=== PATIENT | female | born 1965 | race Caucasian/White ===

== ENCOUNTER 2016-08-21 09:29 | Emergency (ER) | payer OTHER ==
[~2016-08-21] VITALS: Ht 177.8 cm; Wt 99.4 kg
[~2016-08-21 09:29] MED LIST: BUPR-79 PO; CALC-20 PO; CHOL100010 PO; CLON0.5T3 PO; FERR325T51 PO; LEVO300T5 PO; LSX40 PO; MULT-589 PO; POTA-327 PO; SERT1TAB68 PO; ZINC50TA3 PO
[2016-08-21 09:34] VITALS: TEMP 37; Ht 177.8 cm; Wt 99.4 kg
[2016-08-21] MEDS ORDERED: OXYCODONE HCL IR 5 MG TAB (IMMEDIATE RELEASE) PO STA (09:56)
--- NOTE | 2016-08-21 10:29 | DIAGNOSTIC IMAGING REPORT ---
RIGHT SHOULDER 3 VIEWS HISTORY: R shoulder pain s/p fall Right COMPARISON: None. FINDINGS: Focal lucency at the superolateral humeral head consistent with a small nondisplaced avulsion fracture. Focal calcification the distal supraspinatus tendon. There is mild degenerative changes at the acromioclavicular and glenohumeral joint. The right clavicle appears intact. Dorsal spurring at the lateral acromion. No radiopaque foreign bodies. IMPRESSION: 1. Small nondisplaced avulsion fracture at the superolateral aspect of the humeral head. This likely represents an avulsion fracture of the supraspinatus tendon. 2. No dislocation within the right shoulder. 3. Calcific tendinitis of the supraspinatus. Electronically signed by: Quincy Perez M.D. 08/21/2016 10:27 AM Dictated Date/Time: 08/21/2016 10:24 AM
[2016-08-21] MEDS ORDERED: OXYC1TAB3 PO (10:48)
[2016-08-21 10:51] VITALS: BP 119/63; PULSE 62; O2SAT 95
[2016-08-21] MEDS ORDERED: LEVO75TA PO (10:54)
[2016-08-21] MEDS ORDERED: POTA10TA30 PO (10:54)
[2016-08-21] MEDS ORDERED: CHOL100041 PEG (10:54)
[2016-08-21] MEDS ORDERED: FERR325T5 PO (10:54)
--- NOTE | 2016-08-21 11:00 | EMERGENCY ROOM VISIT NOTE ---
History First contact with patient: 09:43 Chief Complaint: SHOULDER PAIN Stated Complaint: FELL-RIGHT SHOULDER PAIN History of Present Illness The patient is a 51 year old female who presents to the Emergency Room with complaints of right shoulder pain after slipping and falling this morning on snow, landing on her right side. Since happened around 5 AM this morning. She reports worsening pain with range of motion of the shoulder. The patient reports that she has a history of chronic right shoulder and neck pain. She is currently under the management of [facility] to determine whether her chronic right upper extremity pain is from her neck or shoulder. She has had MRIs of both. She has an appointment tomorrow to see both Dr. Yeboah, spine surgery, and Dr. Carter, general orthopedic surgeon, for her shoulder. The patient denies any head injury or significant neck pain from her fall. The patient is [id number], and rates her discomfort a 10 out of 10. Patient has been taking Ultram 100 mg without any relief of her pain. Review of Systems 10 system review was performed and was negative except for pertinent positives and negatives as indicated in history of present illness Past Medical/Surgical History Medical Problems: (1) Bariatric Surgery Status (2) Obstructive Sleep Apnea (Adult) (Pediatric) (3) Postoperative wound infection (4) RECURRENT SEROMA LEFT LOWER EXTREMITY Family History Unremarkable Social History Smoking Status: Never Smoker Alcohol Use: none Drug Use: none Marital Status: Housing Status: lives with family Occupation Status: employed Current/Historical Medications Scheduled Bupropion (Wellbutrin Sr), 150 MG PO BID Calcium Carbonate-Vitamin D (Calcium 600 + D), 1 TAB PO BID Cholecalciferol (Vitamin D), 1,000 INTER.UNIT PO WK Ferrous Sulfate (Iron Supplement), 325 MG PO QAM Levothyroxine Sodium (Levothyroxine Sodium), 300 MCG PO QAM Multivitamins (Daily Flaca), 1 TAB PO QAM Sertraline Hcl (Zoloft), 200 MG PO QPM Zinc (Zinc), 50 MG PO QAM Scheduled PRN Clonazepam (Klonopin), 0.5 MG PO BID PRN for Anxiety Furosemide (Furosemide), 40 MG PO DAILY PRN for LEG SWELLING Oxycodone Ir (Roxicodone Ir), 1-2 TAB PO Q4H PRN for Pain Potassium Ext Rel (Klor-Con), 10 MEQ PO DAILY PRN for WHEN TAKING LASIX Allergies Coded Allergies: Chlorhexidine (Unverified Allergy, Unknown, rash, 08/21/16) Penicillins (Verified Allergy, Unknown, RASH, 08/21/16) Povidone Iodine (Unverified Allergy, Unknown, hives, 08/21/16) Physical Exam Vital Signs Date Time Temp Pulse Resp B/P Pulse Ox O2 Delivery O2 Flow Rate FiO2 08/21/16 10:51 62 17 119/63 95 Room Air 08/21/16 09:34 37.0 77 20 110/55 97 Room Air Pain Rating (0-10): 10.0 Physical Exam CONSTITUTIONAL: Healthy and well nourished. Alert and oriented X 3 with positive affect. Patient appears in mild discomfort from pain. HEENT: Normocephalic, atraumatic. Pupils equal, round and reactive. NECK: Full active range of motion without discomfort. No focal tenderness to the central cervical spine. RESPIRATORY: Clear to auscultation bilaterally with no wheezing, crackles, rhonchi or stridor. CARDIOVASCULAR: Regular rate and rhythm with no murmurs, rubs or gallops. GASTROINTESTINAL: Bowel sounds present in all quadrants. Soft and nontender to palpation. MUSCULOSKELETAL: Examination shows generalized tenderness to the patient of the entire shoulder. She has no focal tenderness to the distal humerus, elbow or forearm. Distal pulses are intact. No tenderness to palpation through the central thoracolumbar spine. INTEGUMENTARY: No rash or other significant dermatologic conditions noted. NEUROLOGIC: Right hand median, radial and ulnar motor and sensory are intact. Medical Decision & Procedures ER Provider Diagnostic Interpretation: Interpretation of right shoulder x-ray shows degenerative changes of the acromioclavicular joint and humeral head. Radiologist questions the possibility of an avulsion fracture at the insertion of the supraspinatus tendon. Radiologist report is as follows: RIGHT SHOULDER 3 VIEWS HISTORY: R shoulder pain s/p fall Right COMPARISON: None. FINDINGS: Focal lucency at the superolateral humeral head consistent with a small nondisplaced avulsion fracture. Focal calcification the distal supraspinatus tendon. There is mild degenerative changes at the acromioclavicular and glenohumeral joint. The right clavicle appears intact. Dorsal spurring at the lateral acromion. No radiopaque foreign bodies. IMPRESSION: 1. Small nondisplaced avulsion fracture at the superolateral aspect of the humeral head. This likely represents an avulsion fracture of the supraspinatus tendon. 2. No dislocation within the right shoulder. 3. Calcific tendinitis of the supraspinatus. Medications Administered Medications (Trade) Dose Ordered Sig/Amalia Route Start Time Stop Time Status Last Admin Dose Admin Oxycodone HCl (Roxicodone Immediate Rel Tab) 5 mg NOW STAT PO 08/21/16 09:56 08/21/16 09:57 DC 08/21/16 10:01 5 MG ED Course Patient history and physical exam were performed. Nurse's notes were reviewed. The patient was administered OxyIR 5 mg for pain. X-rays of the right shoulder is questioning a possible avulsion fracture of the greater tuberosity. X-ray findings were discussed with the patient. The patient was provided a sling for short-term pain relief. She was urged to perform gentle range of motion exercises to prevent stiffness. Ice for swelling. Tylenol for baseline pain relief. The patient was provided a prescription for OxyIR as needed for breakthrough pain. No drinking or driving while taking OxyIR. The patient will follow-up tomorrow with Drs. Yeboah and Emma for further reevaluation and management. The patient was happy with plan of care, voiced understanding of all discharge instructions, and rated her pain a 5 out of 10 at the time of discharge. Medical Decision Impression Primary Impression: Right humeral fracture Additional Impression: Fall due to slipping on ice or snow Departure Information Prescriptions Oxycodone Ir (Roxicodone Ir) 5 Mg Tab 1-2 TAB PO Q4H Y for Pain, #36 TAB For Initial Treatment Prov: Gideon Haas PA 08/21/16 Referrals Genet Liu M.D. (PCP) Patient Instructions [facility] Problem Qualifiers Primary Impression: Right humeral fracture Encounter type: initial encounter Humerus Location: greater tuberosity Fracture type: closed Fracture alignment: nondisplaced Qualified Codes: S42.254A - Nondisplaced fracture of greater tuberosity of right humerus, initial encounter for closed fracture Additional Impression: Fall due to slipping on ice or snow Encounter type: initial encounter Qualified Codes: W00.9XXA - Unspecified fall due to ice and snow, initial encounter
== END 2016-08-21 11:05 | disposition home or self-care (01) ==
LOC: C.EDB 09:32
DX: S42.254A Nondisplaced fracture of greater tuberosity of right humerus, initial encounter for closed fracture (principal); W00.9XXA Unspecified fall due to ice and snow, initial encounter; G89.29 Other chronic pain; Z98.84 Bariatric surgery status; G47.33 Obstructive sleep apnea (adult) (pediatric); Z79.899 Other long term (current) drug therapy

== ENCOUNTER 2017-05-29 10:37 | Day surgery (SDC) | payer OTHER ==
[2017-05-21 10:52] VITALS: BMI 35.0
--- NOTE | 2017-05-21 11:24 | PAT Medication Instructions ---
Service Date May 21, 2017. Current Home Medication List Bupropion (Wellbutrin Sr), 150 MG PO BID Calcium Carbonate-Vitamin D (Calcium 600 + D), 1 TAB PO BID Cholecalciferol (D 1000), 1,000 INTER.UNIT PO QAM Clonazepam (Klonopin), 0.5 MG PO BID Cyanocobalamin (Vitamin B12), 1,000 MCG PO QAM Ergocalciferol (Vitamin D 99477 Unit), 50,000 UNIT PO WK Ferrous Sulfate (Ferrous Sulfate), 325 MG PO QAM Fish Oil ([place]-3), 1 CAP PO QAM Levothyroxine Sodium (Levothyroxine Sodium), 1 TAB PO QAM Multivitamins (Daily Flaca), 1 TAB PO QAM Sertraline Hcl (Zoloft), 200 MG PO QPM Zinc (Zinc), 50 MG PO QAM Medication Instructions For Your Scheduled Surgery - Hold the following medications as of 05/22/17: Fish Oil ([place]-3), 1 CAP PO QAM - Continue as directed: Ergocalciferol (Vitamin D 15553 Unit), 50,000 UNIT PO WK - Hold the following medications the morning of surgery: Calcium Carbonate-Vitamin D (Calcium 600 + D), 1 TAB PO BID Zinc (Zinc), 50 MG PO QAM Cyanocobalamin (Vitamin B12), 1,000 MCG PO QAM Ferrous Sulfate (Ferrous Sulfate), 325 MG PO QAM Cholecalciferol (D 1000), 1,000 INTER.UNIT PO QAM Multivitamins (Daily Flaca), 1 TAB PO QAM - Take the following medications the morning of surgery with a sip of water OTHERWISE NOTHING TO EAT OR DRINK AFTER MIDNIGHT: Levothyroxine Sodium (Levothyroxine Sodium), 1 TAB PO QAM Bupropion (Wellbutrin Sr), 150 MG PO BID Clonazepam (Klonopin), 0.5 MG PO BID - Take the following medications as scheduled the night before surgery: Bupropion (Wellbutrin Sr), 150 MG PO BID Calcium Carbonate-Vitamin D (Calcium 600 + D), 1 TAB PO BID Clonazepam (Klonopin), 0.5 MG PO BID Sertraline Hcl (Zoloft), 200 MG PO QPM If you have any questions please call us at [phone] or [phone] or [phone]
[2017-05-21 12:05] LABS: BASO % 0.9 %; BASO ABS # 0.05 K/uL (0-0.2); COMPLETE YES; EOS % 2.1 %; HEMATOCRIT 37.8 % (37-47); LYMPH % 43.9 %; MEAN CELL VOLUME 90.2 fL (80-100); MEAN CORPUSCULAR HGB CONC 34.4 g/dl (32-36); MEAN PLATELET VOLUME 9.6 fL (7.4-10.4); MONO % 8.4 %; NEUT % 44.7 %; PLATELET COUNT 198 K/uL (130-400); RED BLOOD COUNT 4.19 M/uL (4.2-5.4)
[2017-05-21 12:07] LABS: URINE APPEARANCE CLEAR (CLEAR); URINE BILIRUBIN NEG (NEG); URINE COLOR YELLOW; URINE NITRITE NEG (NEG); URINE SPECIFIC GRAVITY 1.023 (1.000-1.030); UROBILINOGEN NEG (NEG); ZZUR CULT IF INDIC CLEAN CATCH NO
[2017-05-21 12:12] LABS: MANUAL MICROSCOPIC REQUIRED? NO; REVIEW REQ? NO
--- NOTE | 2017-05-21 12:25 | DIAGNOSTIC IMAGING REPORT ---
CHEST 2 VIEWS ROUTINE HISTORY: 52 years-old Female PAT preoperative exam. No acute chest complaints. COMPARISON: Chest radiograph 09/24/2014 TECHNIQUE: PA and lateral views of the chest FINDINGS: Cardiomediastinal and hilar silhouettes are within normal limits. No pneumothorax, pleural effusion, focal airspace consolidation or overt pulmonary edema. Degenerative changes are seen within the shoulders and spine. IMPRESSION: No acute cardiopulmonary process. The above report was generated using voice recognition software. It may contain grammatical, syntax or spelling errors. Electronically signed by: Zeke Enriquez M.D. 05/21/2017 12:24 PM Dictated Date/Time: 05/21/2017 12:22 PM
[2017-05-21 14:04] LABS: BUN/CREATININE RATIO 20.4 (10-20); CALCIUM 8.4 mg/dl (8.5-10.1); CREATININE 0.57 mg/dl (0.60-1.20); POTASSIUM 4.3 mmol/L (3.5-5.1)
--- NOTE | 2017-05-28 17:07 | HISTORY & PHYSICAL EXAMINATION ---
DATE OF ADMISSION: 05/29/2017 ADMISSION HISTORY AND PHYSICAL CHIEF COMPLAINT: Chronic right shoulder pain. HISTORY OF PRESENT ILLNESS: This is a 52-year-old female patient of Dr. Roth'monty complaining of chronic right shoulder pain, longstanding, now progressively getting worse. The patient has had right shoulder pain for approximately 2 years now. She has failed conservative treatment including injections and then she also had a fall in July of 2011, at work. MRI has confirmed impingement, AC arthritis and calcium deposit. The patient wishes to proceed with a right shoulder arthroscopic subacromial decompression, distal clavicle excision and needle barbotage with a possible excision of calcium deposit. PAST MEDICAL HISTORY: Anxiety, carpal tunnel syndrome, hypothyroidism, and neck problems. SOCIAL HISTORY: Nonsmoker, nondrinker. PAST SURGICAL HISTORY: Gastric bypass, stomach surgery, and surgery on her left thigh status post an injury. REVIEW OF SYSTEMS: The patient complains of chronic right shoulder pain, failure of conservative treatment. Otherwise, denies any shortness of breath, chest pain, nausea, vomiting or other joint complaints. FAMILY HISTORY: Noncontributory. MEDICATIONS: Include: 1. Ibuprofen as needed. 3. Clonazepam 0.5 mg p.r.n. x2. 4. Synthroid 125 mcg daily. 5. Zoloft 100 mg 2 tablets daily. 6. Vitamin B12 daily. 7. Vitamin D daily. 8. Zinc 50 mg daily. 9. Calcium plus D3 200 daily. 10. A multivitamin daily. 11. Fish oil 1200 mg daily. 12. Iron 325 mg daily. ALLERGIES: PENICILLIN, BETADINE SCRUB. PHYSICAL EXAMINATION: GENERAL: Well-developed, well-nourished 52-year-old female, in no acute distress. She is alert and oriented x3 and pleasant. HEENT: Normocephalic, atraumatic. Extraocular motions are intact. Pupils are equal and reactive to light. HEART: Regular rate and rhythm, no murmurs appreciated. LUNGS: Clear. ABDOMEN: Soft, nontender, bowel sounds present. EXTREMITIES: Right shoulder reveals AC joint tenderness. She has positive impingement maneuvering. She has 4+/5 strength globally although with pain. NEUROLOGIC: Neurovascularly, she is intact in her right upper extremity. DIAGNOSES: Right shoulder impingement, acromioclavicular arthritis, calcium deposit. She also has a history of anxiety, carpal tunnel syndrome, hypothyroidism, and neck problems. PLAN: The patient was advised of her diagnosis. Indications, risks, benefits, and postop course have all been reviewed. The patient wishes to proceed with a right shoulder arthroscopic subacromial decompression, distal clavicle excision, needle barbotage, possible excision of calcium deposit. Necessary consent forms, preoperative testing and clearances will be obtained. ROMAN
[~2017-05-29] VITALS: Ht 175.3 cm; Wt 108.9 kg
[~2017-05-29 10:37] MED LIST changes: +BUPIVACAINE 0.5 % 5 MG/1 ML PF 10ML VIAL ONE; -CHOL100010 PO; +CHOL100041 PO; +CLONIDINE HCL 100 MCG/ML SYRINGE ONE; +CYAN100020 PO; +ERGO500037 PO; +FERR325T5 PO; -FERR325T51 PO; +LACTATED RINGER'S 1000ML 1,000 ML IV SCH; +LEVO125T5 PO; -LEVO300T5 PO; -LSX40 PO; +MEPIVACAINE HCL 1.5% 30 ML VIAL ONE; +OMEG10007 PO; -POTA-327 PO
[2017-05-29] MEDS ORDERED: ONDANSETRON INJ 2 MG/ML 2 ML VIAL ONE (10:51)
[2017-05-29] MEDS ORDERED: DEXAMETHASONE SOD INJ 4 MG/ML VIAL ONE (10:51)
[2017-05-29] MEDS ORDERED: FENTANYL CITRATE INJ 50 MCG/1 ML 2 ML VIAL ONE (10:51)
[2017-05-29] MEDS ORDERED: NEOSTIGMINE METHYLSULFATE 5 MG/5 ML SYR ONE (10:51)
[2017-05-29] MEDS ORDERED: LIDOCAINE HCL 2% 2 ML VIAL (20MG/ML) ONE (10:51)
[2017-05-29] MEDS ORDERED: GLYCOPYRROLATE INJ 0.2 MG/ML VIAL ONE ×2 (10:51→13:50)
[2017-05-29] MEDS ORDERED: ROCURONIUM BROMIDE 10 MG/ML 5 ML VIAL IV ONE (10:51)
[2017-05-29] MEDS ORDERED: PROPOFOL IV EMULSION 10 MG/ML 20 ML VIAL IV ONE (10:51)
[2017-05-29] MEDS ORDERED: MIDAZOLAM HCL 1 MG/ML 2ML VIAL ONE (10:51)
[2017-05-29 11:04] VITALS: BP 122/68; PULSE 59; TEMP 36.7; O2SAT 99; Ht 175.3 cm; Wt 108.9 kg
[2017-05-29] MEDS ORDERED: CLINDAMYCIN 600 MG/54 ML D5W 54 ML IV SCH (12:00)
--- NOTE | 2017-05-29 12:55 | History & Physical Bridge Note ---
H&P Re-Evaluation Bridge Note: I have examined the patient, reviewed the History & Physical and in the interval since the performance of the History & Physical I have noted the following changes of clinical significance: had diarrhea last evening none since this am 5:00 no nausea or vomiting or fever or feeling ill no abdominal pain of significance and active bowel sounds
[2017-05-29] MEDS ORDERED: EpINEphrine HCL INJ 1 MG/ML 5ML SYRINGE ONE (13:12)
[2017-05-29] MEDS ORDERED: PHENYLEPHRINE 100MCG/ML 5ML SYR ONE (13:45)
[2017-05-29] MEDS ORDERED: SUCCINYLCHOLINE 100MG/5ML SYR IV ONE (13:45)
[2017-05-29] MEDS ORDERED: SODIUM CHLORIDE 0.9% 1000ML 1,000 ML IV SCH (14:58)
[2017-05-29] MEDS ORDERED: OXYCODONE/ACETAMINOPHEN 5-325 TAB PO PRN ×2 (15:00)
[2017-05-29] MEDS ORDERED: OXYC-57 PO (15:00)
--- NOTE | 2017-05-29 15:03 | Discharge Instructions ---
Discharge Instructions Date of Service May 29, 2017. Admission Reason for Admission: Right Shoulder Impingement Syndrome, Osteoarthriti Discharge Discharge Diagnosis / Problem: Right shoulder scope. Discharge Goals Goal(s): Improve function Activity Recommendations Activity Limitations: as noted below . Instructions / Follow-Up Instructions / Follow-Up Please see home instruction sheet. Arrange physical therapy 2-3 days post op if already not done. Pain meds as prescribed Follow up with Dr. Roth's office 10-12 days post op as scheduled, call [phone] if you need to confirm your appt. Current Hospital Diet Patient's current hospital diet: Discharge Diet Recommended Diet: Regular Diet Procedures Procedures Performed: Right Shoulder Arthroscopic Subacromial Decompression, Partial Rotator Cuff Debridement, Distal Clavicle Excision, Needle Barbatage, Excision Calcium Deposit, Tenotomy Biceps Pending Studies Studies pending at discharge: no Medical Emergencies . Who to Call and When: Medical Emergencies: If at any time you feel your situation is an emergency, please call 911 immediately. . Non-Emergent Contact Non-Emergency issues call your: Primary Care Provider . "Provider Documentation" section prepared by Toy Rosales. . VTE Core Measure Inpt VTE Proph given/why not?: [facility] [place] [place] Drug Monitoring Program Search Results: patient reviewed within database, no issues identified
[2017-05-29] MEDS ORDERED: EpHEDrine SULFATE INJ 50 MG/ML AMP IV PRN (15:15)
[2017-05-29] MEDS ORDERED: ATROPINE SULFATE 0.1 MG/ML 5ML SYR IV PRN (15:15)
--- NOTE | 2017-05-29 15:22 | [facility] Post Operative Brief Note ---
Immediate Operative Summary Operative Date May 29, 2017. Pre-Operative Diagnosis Right shoulder impingement, acromioclavicular arthritis, calcium deposit,hx greater tuberosity fracture Post-Operative Diagnosis Partial Tear Rotator Cuff, Calcific Tendonitis, Bursitis, Impingement Syndrome, biceps tendinopathy AC Joint Arthritis,bone fragments rotator cuff,hx greater tuberosity fracture Procedure(s) Performed Right Shoulder Arthroscopic Subacromial Decompression, Partial Rotator Cuff Debridement, Distal Clavicle Excision, Needle Barbatage, Excision Calcium Deposit, Tenotomy Biceps Surgeon Dr. Anthony Roth Facilities Engineering Manager Surgeon(s) Toy Rosales PA-C Estimated Blood Loss 15ml Findings as above Specimens none per surgeon Dr. Anthony Roth Anesthesia general and regional Complication(s) None Disposition Recovery Room / PACU
--- NOTE | 2017-05-29 15:25 | Anesthesiology Progress Note ---
Anesthesia Post Op Note Date & Time May 29, 2017 at 15:25 Vital Signs Pain Intensity: 0 Vital Signs Past 12 Hours Date Time Temp Pulse Resp B/P (MAP) Pulse Ox O2 Delivery O2 Flow Rate FiO2 05/29/17 15:15 56 18 124/73 100 Room Air 05/29/17 15:05 54 16 139/77 100 Oxymask 8 05/29/17 14:59 36.1 59 16 126/83 100 Oxymask 8 05/29/17 11:04 36.7 59 20 122/68 (86) 99 Room Air Notes Mental Status: alert / awake / arousable, participated in evaluation Pt Amnestic to Procedure: Yes Nausea / Vomiting: adequately controlled Pain: adequately controlled Airway Patency, RR, SpO2: stable & adequate BP & HR: stable & adequate Hydration State: stable & adequate Anesthetic Complications: no major complications apparent
[2017-05-29 15:40] VITALS: BP 112/68; PULSE 55; TEMP 37.1; O2SAT 96
--- NOTE | 2017-05-29 16:01 | OPERATIVE REPORT ---
DATE OF OPERATION: 05/29/2017 INDICATION FOR PROCEDURE: The patient is a 52-year-old female with chronic right shoulder pain after greater tuberosity fracture. She had a minimally displaced greater tuberosity fracture of her shoulder. She subsequently had an MRI demonstrating the fracture appears to be healed, but she has chronic bursitis, she has impingement, active inflammation in the AC joint, hypertrophic AC joint arthritis. She has calcific tendinitis of the infraspinatus. She has significant inferior AC joint spurs and a type 2-3 acromion contributing to impingement. PREOPERATIVE DIAGNOSES: Right shoulder chronic pain, subacromial impingement, hypertrophic acromioclavicular joint arthritis, calcific tendinitis, history of greater tuberosity fracture and subacromial bursitis. POSTOPERATIVE DIAGNOSES: Right shoulder impingement syndrome, hypertrophic acromioclavicular joint arthritis, calcific tendinitis, chronic subacromial bursitis, intraarticular partial tear rotator cuff including bone fragments greater tuberosity and rotator cuff, biceps tendonopathy, subacromial bursitis intact bursal surface rotator cuff. PROCEDURE: Right shoulder arthroscopic subacromial decompression, distal clavicle excision, extensive debridement including debridement partial tear rotator cuff including bone fragments of the undersurface of the rotator cuff including a needle barbotage and excision calcium deposit infraspinatus tendon with subacromial bursectomy and a tenotomy of the biceps tendon. SURGEON: Dr. Roth. CONCRETE CURER: Toy Rosales PA-C. ANESTHESIA: Regional block general. OPERATION AND FINDINGS: OPERATIVE PROCEDURE: The patient was taken to the operating room, anesthetized with regional block and general anesthetic. [facility] in 70 degree beach chair position. The right shoulder was examined. She had limited forward elevation to about 160 degrees. Otherwise, she had good range of motion with the arm at the side. Her right shoulder was sterilely prepped and draped with alcohol due to allergies to other preps available. After shoulder was prepped and draped, arthroscopy was started with a posterior arthroscopy portal in the soft spot, anterior portal rotator interval anterior to the AC joint was performed and then a lateral portal in the subacromial space. Following findings were noted. In the glenohumeral joint, she had good articular surface on the glenoid and humeral head and intact labrum. The subscapularis tendon was intact. The supraspinatus tendon had partial undersurface tearing. There was some bone fragments and some of this partially torn tissue in the anterior aspect of the supraspinatus. There appeared to be good healing response of the rotator cuff in the area where some tearing and there was no evidence of any full thickness tears. It looked like the cable was intact. The infraspinatus tendon was intact. The biceps tendon, however demonstrated significant tendinopathic fraying and when the biceps was withdrawn into the glenohumeral joint the fraying extended down into the bicipital groove and there was red, inflamed tenosynovium of the biceps consistent with chronic tenosynovitis and tendinopathy. In the subacromial space, there was thickened bursitis. There was a calcium deposit in the infraspinatus tendon identified, it was fairly superficial and visible. There was another smaller calcium deposit in the lateral greater tuberosity in the anterior inferior supraspinatus, posterior supraspinatus area. There was a type 3 acromion process some fraying of the CA ligament. There was significant hypertrophy of the acromioclavicular joint with large inferior spurs causing impingement with a very tight space between the rotator cuff and the undersurface of the clavicle. In the glenohumeral joint, I debrided the partial tear of the rotator cuff, removed all bone fragments on the undersurface of the rotator cuff, irrigated out the joint until free of any debris. I did a tenotomy of the biceps tendon using a radiofrequency ablator cutting wide resection at the release site off the superior labrum so that it would get caught in the bicipital groove and not retract. We did verify this with full range of motion of the elbow and the biceps did not retract down into the groove. The partial tear of the rotator cuff was debrided back to intact stable supraspinatus tendon tissue and then we proceeded to the subacromial space, at which time a thorough bursectomy was performed removing all pathological inflamed bursa tissue. A radiofrequency ablator was used to ablate the bursa on the undersurface of the acromion and release the CA ligament off the spur of the anterior acromion process. A 5.5 bur was used to plane down the acromion to a type 1 flat shape. A 1 cm distal clavicle was resected. We tried to save as much of the superior and posterior capsule for stability as possible. The calcium deposit was identified in the infraspinatus. Spinal needle was used to break it up with needle barbotage. I made a small opening in calcium deposit and it was worked out with a probe and we were able to stick the tip of the shaver blade in there to the deposit and debride out some of the calcium until majority of the calcium was removed leaving just a small defect. There was also a smaller calcium deposit off the superficial over the greater tuberosity and this was debrided with the resector suction shaver device. We irrigated and debrided all the calcium debris from the subacromial space out. Then the portal sites were closed with nylon sutures. Sterile dressings were applied and a sling immobilizer. MARCOS Mahan was my assistant manager/embalmer and assisted in patient positioning, prepping, draping, arm positioning, instrument management and performed the skin closure, dressings, sling application and will participate in postoperative care of the patient. I attest to the content of the Intraoperative Record and any orders documented therein. Any exception s are noted below.
[2017-05-29 16:18] VITALS: BP 127/61; PULSE 55; TEMP 36.7; O2SAT 97
[2017-05-30] MEDS ORDERED: CLINDAMYCIN PHOS 150 MG/ML 2 ML VIAL IV SCH (06:00)
== END 2017-05-29 16:43 | disposition home or self-care (01) ==
LOC: C.ACU 10:37
PROVIDERS: ATTEND Orthopaedic Surgery Sports Medicine
DX: M25.811 Other specified joint disorders, right shoulder (principal); M19.011 Primary osteoarthritis, right shoulder; M75.31 Calcific tendinitis of right shoulder; M75.51 Bursitis of right shoulder; M75.101 Unspecified rotator cuff tear or rupture of right shoulder, not specified as traumatic; E03.9 Hypothyroidism, unspecified; Z98.84 Bariatric surgery status; Z79.899 Other long term (current) drug therapy; E11.9 Type 2 diabetes mellitus without complications

== ENCOUNTER 2018-12-09 06:23 | Inpatient (IN) ==
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
--- NOTE | 2018-10-27 11:57 | PAT Medication Instructions ---
Medication Instructions Date of Service October 27, 2018 Home Medications Caltrate 600 + D 1 tab PO BID cholecalciferol (vitamin D3) 1,000 unit PO QAM coenzyme Q10 [CoQ-10] 30 mg PO QAM cyanocobalamin (vitamin B-12) 1,000 mcg PO QAM ergocalciferol (vitamin D2) 50,000 unit PO WK ferrous sulfate 325 mg PO QAM ibuprofen [Advil] 600 mg PO QID PRN multivitamin 1 tab PO QAM omega 7-ocq-met-fish oil [Fish Oil] 1 cap PO QAM sertraline 200 mg PO HS zinc 50 mg PO QAM trazodone 50 mg PO HS levothyroxine 175 mcg PO QAM pregabalin [Lyrica] 50 mg PO TID ASK your surgeon for instructions ibuprofen [Advil] 600 mg PO QID PRN STOP taking 2 weeks before surgery (or as soon as possible if surgery is within 2 weeks) omega 8-rqs-orb-fish oil [Fish Oil] 1 cap PO QAM coenzyme Q10 [CoQ-10] 30 mg PO QAM DO NOT take the morning of surgery Caltrate 600 + D 1 tab PO BID cholecalciferol (vitamin D3) 1,000 unit PO QAM cyanocobalamin (vitamin B-12) 1,000 mcg PO QAM ergocalciferol (vitamin D2) 50,000 unit PO WK ferrous sulfate 325 mg PO QAM multivitamin 1 tab PO QAM zinc 50 mg PO QAM Take morning of surgery With a small sip of water, OTHERWISE NOTHING TO EAT OR DRINK AFTER MIDNIGHT: levothyroxine 175 mcg PO QAM pregabalin [Lyrica] 50 mg PO TID Take evening before surgery sertraline 200 mg PO HS trazodone 50 mg PO HS pregabalin [Lyrica] 50 mg PO TID Other Notes If you have any questions please call us at [phone] or [phone] or [phone] or [phone]
--- NOTE | 2018-10-27 12:30 | XRay Report ---
XR chest Pre-admission PA/Lat CLINICAL HISTORY: 53 years-old Female presenting with preoperative assessment. TECHNIQUE: PA and lateral views of the chest were obtained. COMPARISON: CT from 02/16/2016 and chest x-ray from 09/24/2014. FINDINGS: Atherosclerosis of the aortic arch. Cardiac silhouette top normal in size. Lungs and pleural spaces c lear. Degenerative changes of the thoracic spine. Upper abdomen normal. IMPRESSION: 1. No acute cardiopulmonary disease. Electronically signed by: Drew Ngo M.D. 10/27/2018 12:29 PM
[2018-10-27 13:25] LABS: Partial Thromboplastin Ratio 0.9; Partial Thromboplastin Time 24.5 Seconds (21.0-31.0); Prothrombin Time 10.3 Seconds (9.0-12.0)
--- NOTE | 2018-11-22 09:55 | History and Physical Report ---
DATE OF ADMISSION: 11/25/2018 CHIEF COMPLAINT: Bilateral knee pain and discomfort, left side greater than the right. HISTORY OF PRESENT ILLNESS: A 53-year-old white female who presents for surgical treatment of her left knee. She has got a long history of bilateral knee pain and discomfort, the left side a bit worse than right. She has been through extensive conservative treatment provided by Dr. Carter at [facility] [place] which has become less successful over time. She describes global pain in both knees. The more she walks, the more it hurts. She did undergo gastric bypass surgery back in 2010 with a 200-pound weight loss. Despite this, she continues to be debilitated by her knee pain. She has very limited walking tolerance. She has difficulty ascending and descending stairs. She would like to proceed with left knee replacement. Of note, the patient was scheduled for a stress echo but canceled because she thought she did not need it. This surgery is pending her getting that and her stress echo being acceptable. PAST MEDICAL HISTORY: Significant for, 1. Cervical spine disease. 2. Obesity status post gastric bypass surgery with a BMI of 37.4. 3. Hypothyroidism. PAST SURGICAL HISTORY: Previous surgeries include, 1. Gastric bypass surgery in 2010. 2. Removal of excessive skin after weight loss. 3. Left calf crush injury in 2014. 4. Carpal tunnel release in 2018. 5. Right shoulder surgery. ALLERGIES: PENICILLIN; MACROBID, WHICH CAUSES A RASH; SURGICAL SCRUB, CHLORHEXIDINE. CURRENT MEDICATIONS: Include, 1. Carafate 600 plus D. 2. Multivitamin. 3. Levothyroxine 175 mcg a day. 4. Lyrica 50 mg. 5. Sertraline 100 mg a day. 6. Iron. 7. Zinc. 8. Coenzyme Q. SOCIAL HISTORY: A 53-year-old female. She is fairly active. Does not smoke. No significant alcohol intake. FAMILY HISTORY: Noncontributory. REVIEW OF SYSTEMS: Significant for obesity status post gastric bypass surgery. BMI is still 37.4. No chest pain, no shortness of breath. No history of DVT and no bleeding problems. No PE history. PHYSICAL EXAMINATION: GENERAL: Reveals a pleasant, middle-aged female. She looks to be in pretty good health. HEENT: Benign. NECK: Supple, no lymphadenopathy. LUNGS: Clear to auscultation. HEART: Regular rate and rhythm. ABDOMEN: Soft, nontender, nondistended. EXTREMITIES: Grossly neurovascularly intact except as follows: Examination of both knees reveals patient walks with a fairly normal gait. Examination of the left knee reveals slight valgus alignment which is made worse with weightbearing. She has got a trace knee effusion. She is tender diffusely around her knee. Range of motion is 0-125. No instability. X-RAYS: X-ray of the left knee reviewed. She has advanced lateral compartment DJD with complete loss of her lateral joint space. She has got valgus alignment to her knee. She does have diffuse osteopenia. She has got some osteophytes in all 3 compartments. ASSESSMENT: A 53-year-old female with a history of morbid obesity in the past, status post gastric bypass surgery with advanced bilateral knee degenerative joint disease, the left side is more symptomatic than the right. She likes to have left knee surgery. PLAN: We will take her to the operating room and do a left total knee replacement. The risks and benefits of this procedure were explained to the patient including, but not limited, to DVT, PE, , infection, neurological injury, vascular injury, bleeding problem, pain, limited range of motion, stiffness, failure to relieve her symptoms, incomplete relief of symptoms, need for further surgery in the future, fracture, leg length inequality, nerve palsy, etc. The patient understands and desires to proceed. Informed consent was obtained. She is fully aware that at her young age this might need to be redone in the future. She does have diffuse osteopenia and we may put a tibial stem in her tibia depending on her bone quality. This surgery is pending the results of her stress echo which is currently pending. She does report an allergy to penicillin, but it is only a rash and we will plan on giving her Ancef.
[~2018-12-09 06:23] MED LIST changes: +ACETAMINOPHEN 500 MG TAB PO SCH; -BUPIVACAINE 0.5 % 5 MG/1 ML PF 10ML VIAL ONE; +BUPIVACAINE LIPOSOME/PF 266 MG, BUPIVACAINE/EPINEPHRINE 50 ML, SODIUM CHLORIDE 0.9% 30 ... INFIL SCH; -BUPR-79 PO; -CALC-20 PO; +CEFAZOLIN 2000MG 2,000 MG/15 ML SYR IV SCH; +CEFAZOLIN: ALLERGY NOTED TO ORDERED MEDICATION SCH; -CHOL100041 PO; -CLON0.5T3 PO; -CLONIDINE HCL 100 MCG/ML SYRINGE ONE; -CYAN100020 PO; -ERGO500037 PO; +FAMOTIDINE 20 MG TAB PO SCH; -FERR325T5 PO; +GABAPENTIN 300 MG x 3 PO SCH; -LACTATED RINGER'S 1000ML 1,000 ML IV SCH; -LEVO125T5 PO; +LR 500ML BOLUS, THEN 15ML/HR IV SCH; +LR 60ML/HR IV SCH; -MEPIVACAINE HCL 1.5% 30 ML VIAL ONE; +METOCLOPRAMIDE HCL 10 MG TABLET PO SCH; -MULT-589 PO; -OMEG10007 PO; +SCOPOLAMINE 1.5 MG TDSY TD SCH; -SERT1TAB68 PO; +TRAMADOL HCL 50 MG TABLET PO SCH; -ZINC50TA3 PO
[2018-12-09] MEDS ORDERED: TRANEXAMIC ACID 1,000 MG **IV Intra-op IV SCH (06:30)
[2018-12-09] MEDS ORDERED: BUPIVACAINE 0.5 % 5 MG/1 ML PF 10ML VIAL ONE (06:32)
[2018-12-09] MEDS ORDERED: BUPIVACAINE/EPINEPHRINE 0.25% 1:200,000 30 ML VIAL ONE (06:33)
[2018-12-09] MEDS ORDERED: DEXAMETHASONE SOD INJ 4 MG/ML VIAL ONE (06:33)
--- NOTE | 2018-12-09 06:49 | History & Physical Bridge Note ---
Date of Service December 09, 2018 History & Physical Bridge Note I have examined the patient, reviewed the History & Physical and in the interval since the performance of the History & Physical I have noted the following changes of clinical significance: no changes noted
[2018-12-09] MEDS ORDERED: LIDOCAINE HCL 2% 2 ML VIAL/AMP(20MG/ML) INFIL ONE (07:33)
[2018-12-09] MEDS ORDERED: PROPOFOL IV EMULSION 10 MG/ML 20 ML VIAL IV ONE ×3 (07:33→10:11)
[2018-12-09] MEDS ORDERED: fentaNYL citrate 100 MCG/2 ML VIAL ONE (07:34)
[2018-12-09] MEDS ORDERED: MIDAZOLAM HCL 1 MG/ML 2ML VIAL ONE ×3 (07:34→09:46)
[2018-12-09] MEDS ORDERED: ATROPINE SULFATE 0.1 MG/ML 10ML SYR IV PRN (08:25)
[2018-12-09] MEDS ORDERED: ePHEDrine sulfate 50 MG/ML AMP IV PRN (08:25)
[2018-12-09] MEDS ORDERED: fentaNYL citrate 100 MCG/2 ML VIAL IV PRN (08:25)
[2018-12-09] MEDS ORDERED: ONDANSETRON INJ 2 MG/ML 2 ML VIAL IV PRN ×2 (08:25→12:01)
[2018-12-09] MEDS ORDERED: SODIUM CHLORIDE 0.9% PF 50 ML VIAL ONE (08:27)
[2018-12-09] MEDS ORDERED: BUPIVACAINE LIPOSOME 1.3% 266 MG/20 ML VIAL ONE (08:28)
[2018-12-09] MEDS ORDERED: BUPIVACAINE 0.25% 30 ML VIAL ONE (08:28)
[2018-12-09] MEDS ORDERED: BACITRACIN INJ 50,000 UNIT VIAL ONE (08:28)
[2018-12-09] MEDS ORDERED: EPINEPHrine INJ 1 MG/ML AMP ONE (08:28)
[2018-12-09 08:30] LABS: BUN Creatinine Ratio 29.9 (10-20); Calcium 8.5 mg/dl (8.5-10.1); Creatinine Clr Calc Pharmacy 180.9 ml/min; Est GFR (African American) 128.9; Est GFR (Non-African American) 111.2; Potassium 4.2 mmol/L (3.5-5.1)
[2018-12-09] MEDS ORDERED: VANCOMYCIN HCL 1000MG/20ML VIAL ONE (09:08)
[2018-12-09] MEDS ORDERED: ePHEDrine sulfate 50 MG/ML SYR ONE (09:19)
--- NOTE | 2018-12-09 10:50 | Post Operative Brief Note ---
Immediate Post Op Note v1 Date of Surgery December 09, 2018 Pre & Post Diagnosis Operation Date: 12/09/18 08:50 Pre-Op Diagnosis: Left Knee Advanced Degenerative Joint Disease Post-Op Diagnosis: Left Knee Advanced Degenerative Joint Disease Procedure Operation Date: 12/09/18 08:50 Actual Procedures p Left Total Knee Arthroplasty(Left) - Peter Lemon MD Surgeon Peter Lemon MD Court Registry Officer Erendira, PAC Estimated Blood Loss 50 Findings Consistent with Post-Op Diagnosis Fluids 1400 cc Specimens Left Knee Drains Mike Catheter (A 16 Armenian mike catheter was inserted by MARCOS Dey, without difficulty, concentrated yellow urine obtained, output to be monitored by Anesthesia.) Anesthesia Type Spinal MAC Complications none Disposition Accompanied Patient To Recovery: No Disposition: Recovery Room
--- NOTE | 2018-12-09 11:14 | XRay Report ---
XR knee LT 2V routine CLINICAL HISTORY: Surgical Post Op COMPARISON: 11/15/2014 DISCUSSION: There are postsurgical changes of a total left knee arthroplasty and patellar resurfacing with a long tibial spike. There is no evidence for acute fracture or dislocation. There are overlyin g skin vanessa. There is air within the soft tissues consistent with recent surgery. Sclerotic change s are present within the distal femoral metaphysis, likely secondary to a bone infarct or chondroid l esion. IMPRESSION: Postsurgical changes of a total left knee arthroplasty. Electronically signed by: Meliton Fisher M.D. 12/09/2018 11:13 AM
--- NOTE | 2018-12-09 11:31 | Anesthesiology Progress Note ---
Date of Service December 09, 2018 Anesthesia Post Procedure Vital Signs Vital Signs: Temp Pulse Pulse Resp BP Pulse Ox 12/09/18 11:25 69 21 105/57 L 98 12/09/18 11:15 67 15 116/53 L 93 12/09/18 11:05 73 19 117/57 L 97 12/09/18 10:56 36.4 C L 71 16 114/59 L 100 12/09/18 06:58 36.6 C 61 18 134/50 L 95 Pain Intensity Bilateral Knee: Pain Intensity: 6 Left Knee: Pain Intensity: 0 Transfer of Care Handoff Completed per policy Notes Mental Status: alert / awake / arousable Patient Amnestic to Procedure: Yes Nausea / Vomiting: adequately controlled Pain: adequately controlled Airway Patency, RR, SpO2: stable & adequate BP & HR: stable & adequate Hydration State: stable & adequate Neuraxial Anesthesia: was administered and sensory block is resolving Anesthetic Complications: no major complications apparent and Pt Satisfied with anesthetic care
[2018-12-09] MEDS ORDERED: MAGNESIUM HYDROXIDE SUSP 30 ML UDC PO PRN (12:01)
[2018-12-09] MEDS ORDERED: BISACODYL 10 MG SUPP PR PRN (12:01)
[2018-12-09] MEDS ORDERED: ALUMINUM/MAGNESIUM SUSP 30 ML UDC PO PRN (12:01)
[2018-12-09] MEDS ORDERED: NALOXONE HCL 0.4 MG/1 ML VIAL/CARP IV PRN (12:01)
[2018-12-09] MEDS ORDERED: METOCLOPRAMIDE HCL INJ 5 MG/ML 2 ML VIAL IV PRN (12:01)
[2018-12-09] MEDS: SODIUM CHLORIDE 0.9% 1000ML 1,000 ML IV SCH ×2 (12:32→19:26)
[2018-12-09] MEDS: ACETAMINOPHEN 500 MG TAB PO SCH ×2 (13:09→21:21)
[2018-12-09] MEDS: KETOROLAC 30 MG/ML VIAL IV SCH ×2 (13:09→17:24)
[2018-12-09] MEDS: OXYCODONE HCL IR 5 MG TAB (IMMEDIATE RELEASE) PO PRN ×2 (13:47→20:49)
[2018-12-09] MEDS: ASCORBIC ACID 500 MG TAB PO SCH (16:26)
[2018-12-09] MEDS: FERROUS GLUCONATE 324 MG TAB PO SCH (16:26)
[2018-12-09] MEDS: CEFAZOLIN 2000MG 2,000 MG/15 ML SYR IV SCH (16:26)
[2018-12-09] MEDS: CHECK SCOPOLAMINE PATCH PLACEMENT SCH (16:38)
[2018-12-09] MEDS ORDERED: TRANEXAMIC ACID 1,000 MG in 0.9 % SODIUM CHLORIDE 100 ML IV SCH (17:00)
--- NOTE | 2018-12-09 19:21 | Progress Note ---
DATE: 12/09/2018 SUBJECTIVE: 53-year-old female postop from a left knee replacement. She is doing well. Really not had any pain yet. Just a little burning sensation in the front of her knee. No chest pain or shortness of breath. OBJECTIVE: VITAL SIGNS: Temperature is 37.3. Vital signs stable. PHYSICAL EXAMINATION: GENERAL: Pleasant, middle-aged female. She is sitting up in bed and talking to her daughter. LUNGS: Clear to auscultation. HEART: Regular rate and rhythm. ABDOMEN: Soft, nontender, nondistended. EXTREMITIES: Grossly neurovascularly intact except as follows: Examination of the left lower extremity reveals the leg to be well aligned. Dressing is clean, dry and intact. She can dorsiflex and plantarflex her foot appropriately. She is neurologically intact. X-RAYS: X-rays of the left knee from recovery room were reviewed. It shows a cemented posterior stabilized total knee arthroplasty. Fairly poor quality films. No obvious signs of problems. ASSESSMENT: A 53-year-old female postop from a left knee replacement, doing pretty well. Pain is controlled. She is neurologically intact. PLAN: 1. DVT prophylaxis including thigh-high TEDs, SCDs, and aspirin twice a day. 2. PT/OT. Weight bear as tolerated. Left total knee protocol. 3. Pain control, doing very well with current pain regimen. 4. IV antibiotics x24 hours. 5. Disposition: She was initially planning to be discharged to home. She is now considering going to rehab or shelter facility. I will have social media campaign manager will look into this tomorrow.
[2018-12-09] MEDS: TRAZODONE HCL 50 MG TAB PO SCH (20:45)
[2018-12-09] MEDS: CALCIUM 600MG + VIT D 400 IU TAB PO SCH (20:45)
[2018-12-09] MEDS: SENNA 8.6 MG TAB PO SCH (20:45)
[2018-12-09] MEDS: ASPIRIN 81 MG ECTAB PO SCH (20:45)
[2018-12-09] MEDS: DOCUSATE SODIUM 100 MG CAP PO SCH (20:45)
[2018-12-09] MEDS: SERTRALINE HCL 100 MG TABLET PO SCH (20:45)
[2018-12-09] MEDS: TAPENTADOL HCL ER 50 MG TABCR PO SCH (20:47)
[2018-12-09] MEDS: PREGABALIN 150 MG CAP PO SCH (20:47)
[2018-12-09] MEDS: FUROSEMIDE 40 MG TAB PO SCH (21:20)
--- NOTE | 2018-12-09 22:24 | Operative Report ---
DATE OF OPERATION: 12/09/2018 SURGEON: Peter mcgowan MD MILK DRIER: MARCOS Blas PREOPERATIVE DIAGNOSIS: Left knee degenerative joint disease. POSTOPERATIVE DIAGNOSIS: Left knee degenerative joint disease. PROCEDURE PERFORMED: Left cemented posterior stabilized total knee arthroplasty. COMPLICATIONS: None. ESTIMATED BLOOD LOSS: 50 mL. FLUID REPLACEMENT: 1400 mL crystalloid fluid replacement. TOURNIQUET TIME: 75 minutes at 350 mmHg. ANESTHESIA: Spinal with adductor canal block. DRAINS: None. SPECIMENS: Left knee sent for pathology. OPERATIVE INDICATIONS: The patient is a 53-year-old female who has had a long history of bilateral knee pain and discomfort, left side a bit worse than the right. She has been through extensive conservative treatment in the past which became less successful in her left knee. She did undergo gastric bypass surgery back in 2010 and had a 200-pound weight loss. Despite this, she continues to be limited by her knee pain. She elected to proceed with a left total knee arthroplasty. OPERATIVE FINDINGS: Operative findings revealed a large soft tissue envelope. She did have some focal grade 4 changes particularly in the lateral side of her knee, but some spotty grade 4 changes elsewhere as well. She did have valgus alignment to her knee. She had about a 10- to 15-degree flexion contracture. OPERATIVE IMPLANTS: Operative implants consisted of: 1. Biomet Vanguard size 65 left posterior stabilized femoral component. 2. Biomet size 67 tibial tray with a small cruciate wing, 5 mm offset, and a 15 x 80 mm uncemented stem. 3. A 10 mm posterior stabilized polyethylene insert. 4. A 28 x 8 all poly patella. OPERATIVE PROCEDURE: The patient was taken to the operating room, identified and placed on the operative table in supine position. All contact areas were appropriately padded. IV antibiotics were provided by anesthesia team. A spinal anesthetic had been implemented in the holding area. Feliciano catheter was placed in sterile fashion. A left thigh tourniquet was then placed and left lower extremity was then prepped and draped in the usual sterile fashion. The left leg was elevated and exsanguinated with Esmarch and tourniquet was placed at 350 mmHg. An anterior approach to the left knee was then performed through a longitudinal incision centered over the patella. Sharp dissection was carried through the subcutaneous tissue down to the level of the extensor mechanism. A medial parapatellar arthrotomy incision was made. Some subperiosteal dissection was carried out medially. The fat pad was resected from beneath the patellar tendon. The lateral patellofemoral ligament was released. The patella was subluxated laterally and the knee was flexed. The osteophytes were taken off the distal femur. The ACL and PCL then were released from the distal femur. The tibia subluxated anteriorly. I then resected the tibial eminence. The intramedullary reamer was then used to enter the IM canal of the tibia. I elected to place a tibial stem due to the poor quality of bone, osteoporosis, and her large size. I then reamed the tibial canal up to a size 15. The internal tibial alignment jig was placed on the IM yusuf and the proximal tibial cut was made to remove about 3-4 mm of bone from the medial side. The tibia was sized to a size 67. The 67 tray was pinned in place. The 5-mm offset guide was used and the proximal tibia was prepared for the stem with a small cruciate wing. The trial implant was assembled in place without difficulty. Attention was then drawn to the femur. The distal femur was entered with a sharp drill. The intramedullary canal was suctioned. A left 5-degree valgus cutting guide was placed. Distal femoral cutting block was pinned in place. I did take an additional 5 mm of bone off the distal femur due to her flexion contracture. The distal femoral cut was made. The femur was then sized exactly to a size 65. The AP cutting block was pinned parallel to the epicondylar axis, which was 5 degrees of external rotation. The anterior cut, anterior chamfer, posterior cut, posterior chamfer cuts were made. Box cutting guide was placed and adjusted slightly lateral and the box cut was made. The knee was flexed. The remnant of the medial and lateral menisci were excised. I did have to release the popliteus as well as some of the IT band in order to equalize the flexion and extension gaps. The trial femoral component was placed. The tibial tray was already in place. I trialed the knee and a 10-mm insert fit most appropriately. Attention was then drawn to the patella. The patella was cleaned of all soft tissues. Patellar thickness measured 18 mm in thickness, it was cut down to 13. It was sized to a size 28 patella. Lug holes were drilled for a 28 patella. Lateral osteophyte was removed. Patellar button was placed. Knee was taken through range of motion and patella tracked nicely with no thumbs test. Attention was then drawn toward placement of the permanent components. All trial components were removed. Bone plug was placed in distal femur to limit blood loss. A double batch of Palacos G cement was mixed. I did add an additional gram of vancomycin due to her large size and impaired nutritional status. A Biomet Vanguard size 65 left posterior stabilized femoral component, size 67 tray with a 15 x 80 mm, 5 mm offset stem with a small cruciate wing was then placed followed by a 10 mm posterior stabilized polyethylene insert and a 28 x 8 all poly patella. Of note, we just cemented the metaphysis and the surface of the tibia. The knee was brought out into full extension until cement hardened. A final cement check was then performed. Pericapsular tissues were injected with a total of 100 mL of a combination of 20 mL of Exparel, 30 mL of normal saline, 50 mL of 0.25% Marcaine with epinephrine. We did end up injecting probably about 20-30 mL less of this as some of this was still on the back table. The tourniquet was then let down for a final tourniquet time of 75 minutes. Hemostasis was assured with use of electrocautery. The extensor mechanism was then closed with a combination of #1 PDS suture and #1 Vicryl suture in [id number] fashion. Extensor mechanism was checked and found to be intact. The subcutaneous tissue was then closed with #2 Dexon suture in a buried interrupted fashion. Skin was closed with skin vanessa. Leg was then cleaned and dried and a sterile dressing of Xeroform, 4 x 4's, sterile cast padding and Felix bandage were applied. The patient was then transferred to the recovery room in stable condition. The patient tolerated the procedure well with no complications. All needle and sponge counts were correct at the end of the operation. I attest to the content of the Intraoperative Record and any orders documented therein. Any exception s are noted below.
[2018-12-10] MEDS: CHECK SCOPOLAMINE PATCH PLACEMENT SCH (00:31)
[2018-12-10] MEDS: CEFAZOLIN 2000MG 2,000 MG/15 ML SYR IV SCH (00:31)
[2018-12-10] MEDS: KETOROLAC 30 MG/ML VIAL IV SCH ×5 (00:32→23:38)
[2018-12-10] MEDS: OXYCODONE HCL IR 5 MG TAB (IMMEDIATE RELEASE) PO PRN ×3 (03:50→22:41)
[2018-12-10] MEDS: LEVOTHYROXINE SODIUM 175 MCG TABLET PO SCH (05:52)
[2018-12-10] MEDS: ACETAMINOPHEN 500 MG TAB PO SCH ×3 (06:28→20:40)
[2018-12-10 07:00] LABS: Hematocrit (blood only) 30.7 % (37-47); Hemoglobin 10.3 g/dL (12.0-16.0); Mean Corpuscular Hgb Conc 33.6 g/dL (32-36); Mean Corpuscular Volume 89.5 fL (80-100); Mean Platelet Volume 9.2 fL (7.4-10.4); Platelet Count 164 K/uL (130-400); RDW Coefficient of Variation 12.8 % (11.5-14.5); RDW Standard Deviation 41.6 fL (36.4-46.3); Red Blood Count 3.43 M/uL (4.2-5.4); White Blood Count 7.16 K/uL (4.8-10.8)
[2018-12-10 07:33] LABS: BUN Creatinine Ratio 26.3 (10-20); Creatinine Clr Calc Pharmacy 147.2 ml/min; Est GFR (African American) 120.4; Est GFR (Non-African American) 103.9
[2018-12-10] MEDS: HYDROmorphone INJ 0.5 MG/0.5 ML SYR IV PRN ×2 (08:12→15:49)
[2018-12-10] MEDS: PREGABALIN 150 MG CAP PO SCH ×2 (08:13→20:36)
[2018-12-10] MEDS: POTASSIUM CHLORIDE 20 MEQ TABCR PO SCH (08:13)
[2018-12-10] MEDS: CHOLECALCIFEROL 1,000 UNITS TAB PO SCH (08:13)
[2018-12-10] MEDS: CALCIUM 600MG + VIT D 400 IU TAB PO SCH ×2 (08:13→20:31)
[2018-12-10] MEDS: ASPIRIN 81 MG ECTAB PO SCH ×2 (08:13→20:31)
[2018-12-10] MEDS: MULTIVITAMIN TAB PO SCH ×2 (08:13)
[2018-12-10] MEDS: TAPENTADOL HCL ER 50 MG TABCR PO SCH ×2 (08:13→20:36)
[2018-12-10] MEDS: FERROUS GLUCONATE 324 MG TAB PO SCH ×2 (08:13→15:51)
[2018-12-10] MEDS: DOCUSATE SODIUM 100 MG CAP PO SCH ×2 (08:13→20:31)
[2018-12-10] MEDS: ASCORBIC ACID 500 MG TAB PO SCH ×2 (08:13→15:51)
[2018-12-10] MEDS: CYANOCOBALAMIN 500 MCG TABLET (VITAMIN B-12) PO SCH (08:13)
[2018-12-10] MEDS: OMEGA-3 (PURIFIED FISH OIL) 1 GM CAP PO SCH (08:13)
[2018-12-10] MEDS ORDERED: NON-FORMULARY MEDICATION (Zinc 50 MG) PO SCH (09:00)
[2018-12-10] MEDS ORDERED: NON-FORMULARY MEDICATION (Coenzyme Q10 [Coq-10] 30 MG) PO SCH (09:00)
[2018-12-10] MEDS: FUROSEMIDE 40 MG TAB PO SCH (09:42)
--- NOTE | 2018-12-10 15:24 | Progress Note ---
DATE: 12/10/2018 SUBJECTIVE: A 53-year-old female postop day 1 from a left knee replacement. She is doing pretty well. Pain is controlled. She describes mostly this as burning sensation in her leg. No chest pain or shortness of breath. Not feeling dizzy or lightheaded. OBJECTIVE: VITAL SIGNS: Temperature 37.0. Vital signs stable. GENERAL: Physical examination shows a pleasant, middle-aged female. She is sitting up in her bedside chair and looks comfortable. EXTREMITIES: Examination of the left leg reveals the dressing to be clean, dry and intact. She can dorsiflex and plantarflex her foot appropriately. She can do a pretty good straight leg raise. LABORATORY DATA: Hemoglobin is 10.3. Hematocrit 30.7. Electrolytes are stable. ASSESSMENT: A 53-year-old white female postop day 1 from left knee replacement, doing pretty well. Pain is controlled. She is neurologically intact. PLAN: 1. DVT prophylaxis including thigh-high TEDs, SCDs, and aspirin twice a day. 2. PT/OT. Weight bear as tolerated. Left total knee protocol. 3. Pain control, doing pretty well with current pain regimen. 4. Disposition: She desires she is going to go home with some home health. She has done pretty well in therapy so far. Likely discharge tomorrow.
[2018-12-10] MEDS: SENNA 8.6 MG TAB PO SCH (20:30)
[2018-12-10] MEDS: SERTRALINE HCL 100 MG TABLET PO SCH (20:30)
[2018-12-10] MEDS: TRAZODONE HCL 50 MG TAB PO SCH (20:31)
[2018-12-11 06:02] VITALS: BP 117/67; PULSE 67; TEMP 98.6; O2SAT 97
[2018-12-11] MEDS: KETOROLAC 30 MG/ML VIAL IV SCH (06:26)
[2018-12-11] MEDS: ACETAMINOPHEN 500 MG TAB PO SCH (06:26)
[2018-12-11] MEDS: LEVOTHYROXINE SODIUM 175 MCG TABLET PO SCH (06:27)
[2018-12-11] MEDS: OXYCODONE HCL IR 5 MG TAB (IMMEDIATE RELEASE) PO PRN ×2 (06:28→10:25)
[2018-12-11] MEDS: FUROSEMIDE 40 MG TAB PO SCH (07:38)
[2018-12-11] MEDS: TAPENTADOL HCL ER 50 MG TABCR PO SCH (07:38)
[2018-12-11] MEDS: FERROUS GLUCONATE 324 MG TAB PO SCH (07:38)
[2018-12-11] MEDS: MULTIVITAMIN TAB PO SCH ×2 (07:38→07:39)
[2018-12-11] MEDS: POTASSIUM CHLORIDE 20 MEQ TABCR PO SCH (07:38)
[2018-12-11] MEDS: DOCUSATE SODIUM 100 MG CAP PO SCH (07:38)
[2018-12-11] MEDS: ASCORBIC ACID 500 MG TAB PO SCH (07:38)
[2018-12-11] MEDS: PREGABALIN 150 MG CAP PO SCH (07:38)
[2018-12-11] MEDS: ASPIRIN 81 MG ECTAB PO SCH (07:38)
[2018-12-11] MEDS: CALCIUM 600MG + VIT D 400 IU TAB PO SCH (07:38)
[2018-12-11] MEDS: CYANOCOBALAMIN 500 MCG TABLET (VITAMIN B-12) PO SCH (07:38)
[2018-12-11] MEDS: OMEGA-3 (PURIFIED FISH OIL) 1 GM CAP PO SCH (07:39)
[2018-12-11] MEDS: CHOLECALCIFEROL 1,000 UNITS TAB PO SCH (07:39)
--- NOTE | 2018-12-11 08:43 | Progress Note ---
DATE: 12/11/2018 SUBJECTIVE: A 53-year-old white female postop day 2 from a left knee replacement. She is doing pretty well. Has episodes of more severe pain here and there, but does respond to the pain medicine. No chest pain or shortness of breath. Not feeling dizzy or lightheaded. OBJECTIVE: VITAL SIGNS: Temperature 37.0. Vital signs stable. GENERAL: Physical examination shows a pleasant, middle-aged female. She is walking around the room this morning with a walker. EXTREMITIES: Examination of the left leg reveals the dressing to be clean, dry and intact. Leg is well aligned. Mild swelling. She is neurologically intact. ASSESSMENT: A 53-year-old white female postop day 2 from left knee replacement, doing pretty well. Having intermittent bouts of more severe pain at times, but seems to respond to the pain medicines and nothing out of the ordinary. PLAN: 1. DVT prophylaxis including thigh-high TEDs, SCDs, and aspirin twice a day. 2. PT/OT. Weight bear as tolerated. Left total knee protocol. 3. Pain control. We are going to use Tylenol around the clock and send her home taking Diclofenac twice a day as well as Oxycodone p.r.n. 4. Disposition: Plan to discharge to home with some home health later today.
[2018-12-15] MEDS ORDERED: ERGOCALCIFEROL 50,000 UNITS CAP PO SCH (09:00)
--- NOTE | 2018-12-17 09:13 | Discharge Summary ---
ADMITTING PHYSICIAN AND SURGEON: Peter Lemon MD ADMITTING DIAGNOSIS: Left knee degenerative joint disease. SURGERY PERFORMED: Left total knee arthroplasty. SECONDARY DIAGNOSES: Cervical spine disease, obesity, hypothyroidism. CONSULTS: None obtained. HISTORY AND PHYSICAL EXAMINATION: Well documented in the patient's chart. HOSPITAL COURSE: The patient was admitted on 12/09/2018, underwent total knee arthroplasty, tolerated the procedure well and there were no complications. She was transferred to the PACU postoperatively and later to the orthopedic floor for further care. She was given Ancef for antibiotic prophylaxis, FREIDA stockings, SCDs and aspirin for DVT prophylaxis. Hemoglobin, hematocrit and vital signs were monitored during her hospital stay and remained stable. She did not require any blood transfusions. There were no complications. By postoperative day 2, she was tolerating a regular diet, pain was controlled with oral pain medicine. She was participating in physical therapy. Postop day 2, she was discharged home, set up with home health services. She was given printed discharge instructions including new prescriptions for aspirin. Continue her home medications with the exception of Advil which was stopped. Continue physical therapy, weightbearing as tolerated, FREIDA stockings. Follow up approximately 2 weeks postop or sooner if there are any problems or concerns.
== END 2018-12-11 10:56 | disposition home health service (06) | DRG 470 ==
LOC: ASU 06:23 → 3E 10:55
DX: E03.9 Hypothyroidism, unspecified; E66.9 Obesity, unspecified; Z88.0 Allergy status to penicillin; Z88.1 Allergy status to other antibiotic agents; Z68.37 Body mass index [BMI] 37.0-37.9, adult; M17.12 Unilateral primary osteoarthritis, left knee

== ENCOUNTER 2019-02-04 12:37 | Observation (INO) ==
--- NOTE | 2019-02-04 13:30 | XRay Report ---
XR knee LT 3V CLINICAL HISTORY: L knee pain after twisting while putting on sock COMPARISON: 12/16/2018 DISCUSSION: Anterior dislocation of the femur in relation to the tibia. Total knee arthroplasty changes are present. There is a longstem tibial prosthetic. There is no evide nce for soft tissue swelling. IMPRESSION: 1. Anterior dislocation of the femur in relation to the tibia. 2. Operative findings of a total joint replacement. 3. No evidence for fracture. The above report was generated using voice recognition software. It may contain grammatical, syntax or spelling errors. Electronically signed by: Toy Faulkner M.D. 02/04/2019 1:29 PM
[2019-02-04] MEDS ORDERED: ONDANSETRON INJ 2 MG/ML 2 ML VIAL IV STA (13:53)
[2019-02-04] MEDS ORDERED: HYDROmorphone INJ 1 MG/ML SYRINGE IV STA (13:53)
[2019-02-04] MEDS: SODIUM CHLORIDE 0.9% 500 ML IV SCH ×3 (14:16→22:37)
--- NOTE | 2019-02-04 14:23 | Orthopedic Consultation ---
Date of Consultation February 04, 2019 Assessment & Plan (1) Dislocated knee: She was seen by Dr. Lemon and closed reduction was attempted in the ER but was unsuccessful. We will plan on taking her to the OR today for closed reduction vs open reduction of the tka. Procedure explained including risks and benefits and consent obtained. She ate a granola bar around 10am. We will keep her npo at this time. (2) History of total left knee replacement: History of Present Illness Reason for Consultation: left knee pain History of Present Illness Lucy is approx 6 weeks post op from left tka. She was doing well from her knee standpoint. No fevers. She was not having knee pain and was just in the office several days ago. This morning at about 9am she was sitting in a chair, pulling on a compression sock to help with some foot pain and injured her knee. She was unable to walk/weightbear, or extend her knee. She could not physically get to the office so she came to the ER and xrays showed a dislocated tka. Allergies Allergy/AdvReac Type Severity Reaction Status Date / Time chlorhexidine Allergy Unknown Rash Verified 02/04/19 14:04 Penicillins Allergy Unknown Rash Verified 02/04/19 14:04 povidone-iodine Allergy Unknown Hives Verified 02/04/19 14:04 nitrofurantoin Allergy Rash Verified 02/04/19 14:04 [From Macrobid] Home Medications Home Medications Medication Instructions Recorded Confirmed Type Caltrate 600 plus D 1 tab PO BID 05/20/18 02/04/19 History cholecalciferol (vitamin D3) 1,000 unit PO QAM 05/20/18 02/04/19 History [Vitamin D3] ergocalciferol (vitamin D2) 50,000 unit PO WK 05/20/18 02/04/19 History ferrous sulfate 325 mg PO QAM 05/20/18 02/04/19 History multivitamin 1 tab PO QAM 05/20/18 02/04/19 History omega 9-xii-wik-fish oil [Fish Oil] 1 cap PO QAM 05/20/18 02/04/19 History sertraline 200 mg PO HS 05/20/18 02/04/19 History zinc 50 mg PO QAM 05/20/18 02/04/19 History furosemide [Lasix] 40 mg PO QAM 11/21/18 02/04/19 History potassium chloride 20 meq PO QAM 11/21/18 02/04/19 History diclofenac sodium 75 mg PO BID 12/16/18 02/04/19 History levothyroxine 150 mcg PO QAM 12/16/18 02/04/19 History pregabalin [Lyrica] 150 mg PO BID 12/16/18 02/04/19 History trazodone 100 mg PO HS 12/16/18 02/04/19 History krill oil 0 mg PO QAM 02/04/19 02/04/19 History Patient History Social History Preferred Language: Setswana Communication Ability: Effective Bread Wrapper Required: No Beliefs That Will Affect Care: None Current Living Situation: Significant Other current occupational status: employed 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 She holds the left knee flexed. Incision is healed appropriately. The tibia is posterior. She is unable to extend her knee. SHe can move her toes. SHe's NVI Results & Data Vital Signs (Past 12 Hours) Vital Signs Temp Pulse Resp BP Pulse Ox 02/04/19 12:47 37 C 64 20 116/49 L 95 Diagnostic Findings xrays show dislocated left tka with the tibia posterior PG Care Time/CCT Total # of Minutes Spent Total Time Spent with Patient: Total time spent is greater than 50% in coordination of care (as documented) at patient's floor/unit and/or counseling patient:
[2019-02-04] MEDS ORDERED: fentaNYL citrate 100 MCG/2 ML VIAL IV STA ×2 (14:42→17:25)
[2019-02-04] MEDS ORDERED: ePHEDrine sulfate 50 MG/ML AMP IV PRN (17:24)
[2019-02-04] MEDS ORDERED: fentaNYL citrate 100 MCG/2 ML VIAL IV PRN (17:24)
[2019-02-04] MEDS ORDERED: ONDANSETRON INJ 2 MG/ML 2 ML VIAL IV PRN ×2 (17:24→19:55)
[2019-02-04] MEDS ORDERED: ATROPINE SULFATE 0.1 MG/ML 10ML SYR IV PRN (17:24)
--- NOTE | 2019-02-04 17:28 | Anesthesiology Consultation ---
Date of Service February 04, 2019 History Surgery Operation Date: 02/04/19 11:20 Proposed Procedures p Closed Reduction Left Dislocated Knee - Peter Lemon MD Height/Weight Height: 5 ft 8 in Weight: 126.3 kg Allergies Allergy/AdvReac Type Severity Reaction Status Date / Time chlorhexidine Allergy Unknown Rash Verified 02/04/19 14:04 Penicillins Allergy Unknown Rash Verified 02/04/19 14:04 povidone-iodine Allergy Unknown Hives Verified 02/04/19 14:04 nitrofurantoin Allergy Rash Verified 02/04/19 14:04 [From Macrobid] Medications Home Medications Medication Instructions Recorded Confirmed Last Taken Caltrate 600 plus D 1 tab PO BID 05/20/18 02/04/19 02/04/19 cholecalciferol (vitamin D3) 1,000 unit PO QAM 05/20/18 02/04/19 02/04/19 [Vitamin D3] ergocalciferol (vitamin D2) 50,000 unit PO WK 05/20/18 02/04/19 02/02/19 ferrous sulfate 325 mg PO QAM 05/20/18 02/04/19 02/03/19 multivitamin 1 tab PO QAM 05/20/18 02/04/19 02/03/19 omega 1-lem-kux-fish oil [Fish Oil] 1 cap PO QAM 05/20/18 02/04/19 02/03/19 sertraline 200 mg PO HS 05/20/18 02/04/19 02/03/19 zinc 50 mg PO QAM 05/20/18 02/04/19 02/03/19 furosemide [Lasix] 40 mg PO QAM 11/21/18 02/04/19 02/03/19 potassium chloride 20 meq PO QAM 11/21/18 02/04/19 02/03/19 diclofenac sodium 75 mg PO BID 12/16/18 02/04/19 02/03/19 levothyroxine 150 mcg PO QAM 12/16/18 02/04/19 02/03/19 pregabalin [Lyrica] 150 mg PO BID 12/16/18 02/04/19 02/03/19 trazodone 100 mg PO HS 12/16/18 02/04/19 02/03/19 krill oil 0 mg PO QAM 02/04/19 02/04/19 02/03/19 Active Medications Generic Name Dose Route Start Last Admin Trade Name Summer PRN Reason Stop Dose Admin Sodium Chloride 500 mls @ 125 mls/hr 02/04/19 14:00 02/04/19 14:16 Nss IV 03/06/19 13:59 125 mls/hr .Q4H SAMMIE Administration Social History Smoking Status: Never smoker Hx Alcohol Use: Yes Alcohol type: wine and hard liquor alcohol intake frequency: holidays/special occasions only Hx Substance Use: No substance use type: does not use Physical Exam Vital Signs Last Vital Signs Temp 98.6 F 02/04/19 12:47 Pulse 58 L 02/04/19 17:00 Resp 16 02/04/19 17:00 BP 121/58 L 02/04/19 17:00 Pulse Ox 91 02/04/19 17:00 Testing Electrocardiogram Date: 10/19/18 SR with first degree AVB at 66bpm. Otherwise "normal" ECG. Chest X-Ray Date: 10/27/18 Findings: + NAD and + atherosclerosis of thoracic aorta Cardiac silhouette top normal in size. Echocardiogram Date: 10/20/18 LVEF 55-59%. Moderate LVE. Mild RVD. Severe LAE. Mild pulmonary HTN (RVSP 36.1mmhg). Suggestive diastolic dysfunction. Suggestive lung disease and increased intrathoracic pressure. Stress Test Date: 11/26/18 Type: DSE Findings: + WNL and + achieved max HR (90% MPHR)
[2019-02-04] MEDS ORDERED: fentaNYL citrate 100 MCG/2 ML VIAL ONE (18:30)
[2019-02-04] MEDS ORDERED: MIDAZOLAM HCL 1 MG/ML 2ML VIAL ONE (18:30)
--- NOTE | 2019-02-04 18:52 | Post Operative Brief Note ---
PG Immediate Post Op with CF Date of Surgery February 04, 2019 Pre & Post Diagnosis Operation Date: 02/04/19 11:20 Pre-Op Diagnosis: Dislocated Left Total Knee Arthroplasty Post-Op Diagnosis: Dislocated Left Total Knee Arthroplasty Procedure Operation Date: 02/04/19 11:20 Closed Reduction of Dislocated TKR Surgeon Peter Lemon MD Geospatial Technologist Erendira, PAC Estimated Blood Loss 0 Findings Consistent with Post-Op Diagnosis Anesthesia Type General Disposition Accompanied Patient To Recovery: Yes
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
--- NOTE | 2019-02-04 19:25 | Anesthesiology Progress Note ---
Date of Service February 04, 2019 Anesthesia Post Procedure Vital Signs Vital Signs: Temp Pulse Pulse Pulse Resp BP BP 02/04/19 19:20 54 L 16 112/69 02/04/19 19:10 53 L 16 127/66 02/04/19 19:00 49 L 16 100/48 L 02/04/19 18:54 98.4 F 50 L 12 99/42 L 02/04/19 17:45 98.2 F 56 L 20 107/78 02/04/19 17:40 58 L 16 121/58 L 02/04/19 17:00 58 L 16 121/58 L 02/04/19 16:08 54 L 14 113/59 L 02/04/19 15:30 62 19 105/53 L 02/04/19 15:00 58 L 12 101/55 L 02/04/19 14:45 61 12 107/54 L 02/04/19 14:44 02/04/19 14:40 62 16 02/04/19 14:30 65 10 L 110/58 L 02/04/19 14:22 63 16 113/45 L 02/04/19 12:47 98.6 F 64 20 116/49 L Pulse Ox 02/04/19 19:20 99 02/04/19 19:10 100 02/04/19 19:00 98 02/04/19 18:54 98 02/04/19 17:45 96 02/04/19 17:40 91 02/04/19 17:00 91 02/04/19 16:08 98 02/04/19 15:30 99 02/04/19 15:00 94 02/04/19 14:45 95 02/04/19 14:44 76 L 02/04/19 14:40 95 02/04/19 14:30 79 L 02/04/19 14:22 86 L 02/04/19 12:47 95 Pain Intensity Left Knee: Pain Intensity: 0 Transfer of Care Handoff Completed per policy Notes Mental Status: alert / awake / arousable and participated in evaluation Patient Amnestic to Procedure: Yes Nausea / Vomiting: adequately controlled Pain: adequately controlled Airway Patency, RR, SpO2: stable & adequate BP & HR: stable & adequate Hydration State: stable & adequate Anesthetic Complications: no major complications apparent and Pt Satisfied with anesthetic care
[2019-02-04] MEDS ORDERED: BISACODYL 10 MG SUPP PR PRN (19:55)
[2019-02-04] MEDS ORDERED: NALOXONE HCL 0.4 MG/1 ML VIAL/CARP IV PRN (19:55)
[2019-02-04] MEDS ORDERED: MAGNESIUM HYDROXIDE SUSP 30 ML UDC PO PRN (19:55)
[2019-02-04] MEDS ORDERED: METOCLOPRAMIDE HCL INJ 5 MG/ML 2 ML VIAL IV PRN (19:55)
[2019-02-04] MEDS ORDERED: SODIUM CHLORIDE 0.9% 1000ML 1,000 ML IV SCH (19:55)
[2019-02-04] MEDS ORDERED: HYDROmorphone INJ 0.5 MG/0.5 ML SYR IV PRN (19:55)
[2019-02-04] MEDS ORDERED: ALUMINUM/MAGNESIUM SUSP 30 ML UDC PO PRN (19:55)
--- NOTE | 2019-02-04 19:59 | Fluoroscopy Report ---
FL knee LT 1 or 2V CLINICAL HISTORY: CLOSED REDUCTION LEFT KNEE COMPARISON STUDY: Left knee radiograph February 04, 2019. FLUOROSCOPY TIME: 4 seconds. FLUOROSCOPIC IMAGES: 2 FINDINGS: These images demonstrate anatomic alignment of the left knee arthroplasty status post reduc tion. No fracture is visualized. There are no unexpected radiopaque foreign bodies. IMPRESSION: Expected findings following reduction of the left knee. Electronically signed by: Zachery Raines M.D. 02/04/2019 7:58 PM
[2019-02-04] MEDS: OXYCODONE HCL IR 5 MG TAB (IMMEDIATE RELEASE) PO PRN (20:36)
[2019-02-04] MEDS ORDERED: TRAZODONE HCL 100 MG TAB PO SCH (21:00)
[2019-02-04] MEDS ORDERED: SENNA 8.6 MG TAB PO SCH (21:00)
[2019-02-04] MEDS ORDERED: SERTRALINE HCL 100 MG TABLET PO SCH (21:00)
[2019-02-04] MEDS: KETOROLAC 30 MG/ML VIAL IV SCH (22:10)
[2019-02-04] MEDS: CALCIUM 600MG + VIT D 400 IU TAB PO SCH (22:12)
[2019-02-04] MEDS: ACETAMINOPHEN 500 MG TAB PO SCH (22:12)
[2019-02-04] MEDS: DOCUSATE SODIUM 100 MG CAP PO SCH (22:12)
[2019-02-04] MEDS: ASPIRIN 81 MG ECTAB PO SCH (22:14)
[2019-02-04] MEDS: PREGABALIN 150 MG CAP PO SCH (22:16)
--- NOTE | 2019-02-04 23:00 | Operative Report ---
DATE OF OPERATION: 02/04/2019 SURGEON: Peter Lemon MD DIE MECHANIC: MARCOS Blas PREOPERATIVE DIAGNOSIS: Posterior dislocation of the left total knee arthroplasty. POSTOPERATIVE DIAGNOSIS: Posterior dislocation of the left total knee arthroplasty. PROCEDURE PERFORMED: Closed reduction of a dislocated left total knee replacement. COMPLICATIONS: None. SPECIMENS: None. OPERATIVE INDICATIONS: The patient is a 54-year-old obese female now 6 weeks out from a left total knee replacement. She was doing great. I just saw her in clinic on Saturday. This morning, she was bending over and flexing her knee and placing a compression stocking on her ankle for some ankle problems. She had diffuse onset of pain and could not straighten her leg afterwards. She presented to the Emergency Room. X-rays revealed a posterior knee dislocation. We did do an attempt at closed reduction in the ER, but unsuccessful. The patient was in just too much pain. The patient was indicated for closed reduction under anesthesia. OPERATIVE PROCEDURE: The patient was taken to the operating room, identified and placed on the operating table in supine position. All contact areas were appropriately padded. A general anesthetic was implemented. Before providing any muscle relaxants, I did attempt a closed reduction. I maximally flexed her knee into the anterior drawer, it was able to relocate her knee. We did have some by pulling traction on the thigh. This relocated without difficulty. I did get some post-reduction x-rays which revealed they need to be nicely located. She was put in a knee immobilizer, brought out of general anesthesia and transferred to the recovery room in stable condition. The patient tolerated the procedure well with no complications. I attest to the content of the Intraoperative Record and any orders documented therein. Any exception s are noted below.
[2019-02-05] MEDS: KETOROLAC 30 MG/ML VIAL IV SCH ×2 (02:50→07:58)
[2019-02-05] MEDS: ACETAMINOPHEN 500 MG TAB PO SCH (06:20)
[2019-02-05] MEDS ORDERED: LEVOTHYROXINE SODIUM 150 MCG TABLET PO SCH (06:30)
[2019-02-05] MEDS ORDERED: FLUCONAZOLE 50 MG TAB PO ONE (07:14)
[2019-02-05] MEDS: OXYCODONE HCL IR 5 MG TAB (IMMEDIATE RELEASE) PO PRN (07:22)
--- NOTE | 2019-02-05 07:47 | Progress Note ---
DATE: 02/05/2019 SUBJECTIVE: A 54-year-old white female postop day 1 from a left relocation of dislocated total knee. She is doing much better this morning. A little ache and pain but much improved. No new complaints. She does state that she has got a rash and feels she has got a yeast infection. OBJECTIVE: GENERAL: She is a pleasant middle-aged female who is sitting up in bed and looks comfortable. EXTREMITIES: Examination of the left leg reveals the leg to be well aligned. No significant swelling. She can do a good straight leg raise. Range of motion 0-90 degrees without much difficulty. There is no gross varus or valgus instability. Good quad strength to resistance. ASSESSMENT: A 54-year-old white female postop day 1 from a left relocation of a dislocated total knee, doing pretty well. Extensor mechanism intact. PLAN: 1. DVT prophylaxis including thigh-high TEDs, SCDs, and aspirin. 2. PT/OT. We will just immobilize her this morning. I do not think she needs formal therapy. 3. Yeast infection. We will treat her with some Diflucan. 4. Disposition: Plan to discharge to home if she is up and mobilizing okay this morning.
[2019-02-05] MEDS: ASPIRIN 81 MG ECTAB PO SCH (07:59)
[2019-02-05] MEDS: PREGABALIN 150 MG CAP PO SCH (07:59)
[2019-02-05] MEDS: DOCUSATE SODIUM 100 MG CAP PO SCH (08:00)
[2019-02-05] MEDS: CALCIUM 600MG + VIT D 400 IU TAB PO SCH (08:00)
--- NOTE | 2019-02-05 08:23 | Anesthesiology Progress Note ---
Date of Service February 05, 2019 Anesthesia Post Procedure Vital Signs Vital Signs: Temp Pulse Pulse Pulse Pulse Resp BP 02/05/19 07:15 36.4 C L 54 L 18 02/05/19 02:50 36.5 C 53 L 16 02/04/19 22:50 36.5 C 58 L 16 02/04/19 21:50 36.5 C 60 16 02/04/19 20:50 36.7 C 67 16 02/04/19 19:55 36.7 C 53 L 17 02/04/19 19:40 37.0 C 54 L 16 02/04/19 19:30 37.0 C 52 L 20 02/04/19 19:20 54 L 16 02/04/19 19:10 53 L 16 02/04/19 19:00 49 L 16 02/04/19 18:54 36.9 C 50 L 12 02/04/19 17:45 36.8 C 56 L 20 02/04/19 17:40 58 L 16 121/58 L 02/04/19 17:00 58 L 16 121/58 L 02/04/19 16:08 54 L 14 113/59 L 02/04/19 15:30 62 19 105/53 L 02/04/19 15:00 58 L 12 101/55 L 02/04/19 14:45 61 12 107/54 L 02/04/19 14:44 02/04/19 14:40 62 16 02/04/19 14:30 65 10 L 110/58 L 02/04/19 14:22 63 16 113/45 L 02/04/19 12:47 37 C 64 20 116/49 L BP Pulse Ox 02/05/19 07:15 96/58 L 97 02/05/19 02:50 104/55 L 98 02/04/19 22:50 105/58 L 92 02/04/19 21:50 112/61 92 02/04/19 20:50 115/62 92 02/04/19 19:55 107/66 100 02/04/19 19:40 121/67 100 02/04/19 19:30 109/65 99 02/04/19 19:20 112/69 99 02/04/19 19:10 127/66 100 02/04/19 19:00 100/48 L 98 02/04/19 18:54 99/42 L 98 02/04/19 17:45 107/78 96 02/04/19 17:40 91 02/04/19 17:00 91 02/04/19 16:08 98 02/04/19 15:30 99 02/04/19 15:00 94 02/04/19 14:45 95 02/04/19 14:44 76 L 02/04/19 14:40 95 02/04/19 14:30 79 L 02/04/19 14:22 86 L 02/04/19 12:47 95 Pain Intensity Left Knee: Pain Intensity: 6 Head: Pain Intensity: 6 Notes Mental Status: alert / awake / arousable and participated in evaluation Patient Amnestic to Procedure: Yes Nausea / Vomiting: adequately controlled Pain: adequately controlled Airway Patency, RR, SpO2: stable & adequate BP & HR: stable & adequate Hydration State: stable & adequate Anesthetic Complications: Pt Satisfied with anesthetic care
[2019-02-05] MEDS ORDERED: ZINC SULFATE 220 MG CAPSULE PO SCH (09:00)
[2019-02-05] MEDS ORDERED: CHOLECALCIFEROL 1,000 UNITS TAB PO SCH (09:00)
[2019-02-05] MEDS ORDERED: POTASSIUM CHLORIDE 20 MEQ TABCR PO SCH (09:00)
[2019-02-05] MEDS ORDERED: FUROSEMIDE 40 MG TAB PO SCH (09:00)
[2019-02-05] MEDS ORDERED: OMEGA-3 (PURIFIED FISH OIL) 1 GM CAP PO SCH (09:00)
[2019-02-05] MEDS ORDERED: MULTIVITAMIN TAB PO SCH ×2 (09:00)
[2019-02-09] MEDS ORDERED: ERGOCALCIFEROL 50,000 UNITS CAP PO SCH (09:00)
--- NOTE | 2019-02-11 08:45 | Discharge Summary ---
ADMITTING PHYSICIAN AND SURGEON: Dr. Peter Lemon. ADMITTING DIAGNOSIS: Posterior dislocation of the left total knee arthroplasty. PROCEDURE PERFORMED: Closed reduction of a dislocated left total knee arthroplasty. DATE OF PROCEDURE: 02/04/2019. SECONDARY DIAGNOSES: Include depression, fibromyalgia, cervical disc herniation, hypothyroidism, obesity, osteoarthritis, sleep apnea. CONSULTS: None obtained. HISTORY AND PHYSICAL EXAMINATION: Well documented in the patient's chart. HOSPITAL COURSE: The patient was admitted on 02/04/2019 through the Emergency Department with a dislocated total knee arthroplasty. Reduction was attempted unsuccessfully in the Emergency Department. She was then taken to the operating room and underwent a closed reduction of dislocated left total knee replacement. She tolerated this procedure well. There were no complications. She was transferred to the PACU postoperatively and later to the orthopedic floor for further care. Vital signs were monitored during her hospital stay and remained stable. She did not require any blood transfusions. By postoperative day 1, she was tolerating a regular diet, pain was controlled. She was participating in physical therapy. She did have a rash and felt that she had a yeast infection and was just treated with Diflucan. On postoperative day 1, she was discharged home, given printed discharge instructions as well as new prescriptions for extra-strength Tylenol and oxycodone. Continue her home medicines. Continue physical therapy, weightbearing as tolerated. She can discontinue the use of the knee immobilizer. Follow up as an outpatient as previously scheduled.
== END 2019-02-05 10:20 | disposition home or self-care (01) ==
LOC: ED 12:37 → 3E 17:40 → OR 17:40

== ENCOUNTER 2019-10-28 10:12 | Inpatient (IN) ==
[2019-10-28] MEDS ORDERED: ACETAMINOPHEN 500 MG TAB PO STA (10:42)
[2019-10-28] MEDS ORDERED: KETOROLAC TROMETHAMINE 15 MG/ML VIAL IV STA (10:42)
[2019-10-28] MEDS ORDERED: SODIUM CHLORIDE 0.9% 1000ML 1,000 ML IV ONE (10:42)
[2019-10-28] MEDS ORDERED: CEFEPIME 2,000 MG/20 ML VIAL IV STA (10:42)
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
--- NOTE | 2019-10-28 11:13 | XRay Report ---
XR chest 1V portable HISTORY: SEPSIS COMPARISON: Chest 10/27/2018. FINDINGS: No pneumothorax. No pleural effusions. The heart is normal in size. Mild diffuse interstiti al thickening, unchanged. This is likely chronic. Punctate calcified granuloma within the right upper lobe remains stable. There is new left lower lobe airspace opacity. IMPRESSION: A new left lower lobe airspace opacity consistent with a pneumonia. Recommend follow-up to ensure res olution. ACT 112: Negative or not required by law. Electronically signed by: Quincy Perez M.D. 10/28/2019 11:12 AM
[2019-10-28 11:45] LABS: Appearance Urine Clear (Clear); Bacteria Urine Automated Negative (Negative); Bilirubin Urine Negative (Negative); Blood Urine 2+ (Negative); Color Urine Dark Yellow; Epithelial Cell Urine Auto >30 /lpf (0-5); Glucose Urine UA Negative (Negative); Ketones Urine Negative (Negative); Leukocyte Esterase Urine 1+ (Negative); Nitrite Urine Negative (Negative); Protein Urine Trace (Negative); RBC Urine Automated >30 /hpf (0-4); Specific Gravity Urine 1.025 (1.000-1.030); Urobilinogen Urine Negative (Negative); pH Urine 5.5 (4.5-7.5)
[2019-10-28 12:00] LABS: Basophils # (auto) 0.03 K/uL (0-0.2); Basophils % (auto) 0.2 %; Eosinophils # (auto) 0.04 K/uL (0-0.5); Eosinophils % (auto) 0.3 %; Hematocrit (blood only) 40.4 % (37-47); Hemoglobin 13.3 g/dL (12.0-16.0); Immature Granulocytes # (auto) 0.04 K/uL (0.00-0.02); Immature Granulocytes % (auto) 0.3 %; Lymphocytes # (auto) 1.41 K/uL (1.2-3.4); Lymphocytes % (auto) 9.8 %; Mean Corpuscular Hemoglobin 29.4 pg (25-34); Mean Corpuscular Hgb Conc 32.9 g/dL (32-36); Mean Corpuscular Volume 89.4 fL (80-100); Mean Platelet Volume 9.3 fL (7.4-10.4); Monocytes # (auto) 1.26 K/uL (0.11-0.59); Monocytes % (auto) 8.8 %; Neutrophils % (auto) 80.6 %; Platelet Count 220 K/uL (130-400); RDW Coefficient of Variation 14.1 % (11.5-14.5); RDW Standard Deviation 46.1 fL (36.4-46.3); Red Blood Count 4.52 M/uL (4.2-5.4); White Blood Count 14.38 K/uL (4.8-10.8)
[2019-10-28 12:03] LABS: Partial Thromboplastin Ratio 0.8; Partial Thromboplastin Time 22.3 Seconds (21.0-31.0); Prothrombin Time 10.9 Seconds (9.0-12.0)
[2019-10-28 12:13] LABS: Alanine Aminotransferase 26 U/L (12-78); Albumin Level 3.2 gm/dl (3.4-5.0); Aspartate Aminotransferase 11 U/L (15-37); Blood Urea Nitrogen 21 mg/dl (7-18); Calcium 8.5 mg/dl (8.5-10.1); Carbon Dioxide 28 mmol/L (21-32); Chloride 102 mmol/L (98-107); Creatinine Clr Calc Pharmacy 127.2 ml/min; Est GFR (African American) 107.5; Est GFR (Non-African American) 92.7; Glucose 99 mg/dl (70-99); Magnesium 1.9 mg/dl (1.8-2.4); Potassium 3.7 mmol/L (3.5-5.1); Sodium 140 mmol/L (136-145)
[2019-10-28 12:18] LABS: Albumin Globulin Ratio 0.8 (0.9-2); Alkaline Phosphatase 96 U/L (45-117); Bilirubin,Total 0.5 mg/dl (0.2-1); Globulin 3.9 gm/dl (2.5-4.0); Total Protein 7.1 gm/dl (6.4-8.2); Troponin I < 0.015 ng/ml (0-0.045)
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
--- NOTE | 2019-10-28 16:20 | Electrocardiogram Report ---
Test Reason : Blood Pressure : / mmHG Vent. Rate : 079 BPM Atrial Rate : 079 BPM P-R Int : 218 ms QRS Dur : 086 ms QT Int : 356 ms P-R-T Axes : 014 036 027 degrees QTc Int : 408 ms Sinus rhythm with 1st degree A-V block with Premature supraventricular complexes Otherwise normal ECG When compared with ECG of 04-MAY-2019 09:07, Premature supraventricular complexes are now Present Confirmed by Ajay Jain ([id number]) on 10/28/2019 4:20:26 PM Referred By: REFERRED SELF Confirmed By:John Jain
[2019-10-28] MEDS ORDERED: ALBUT/IPRATROP 3MG/0.5MG NEB 3 ML VIAL NEB PRN (16:40)
[2019-10-28] MEDS ORDERED: LEVOFLOXACIN/D5W 750 MG/150 ML BAG IV SCH (18:00)
[2019-10-28] MEDS ORDERED: ENOXAPARIN INJ 40 MG/0.4 ML SYR SQ SCH (21:00)
[2019-10-28] MEDS ORDERED: TRAZODONE HCL 100 MG TAB PO SCH (21:00)
[2019-10-28] MEDS: ACETAMINOPHEN 325 MG TAB PO PRN (22:10)
[2019-10-28] MEDS: buPROPion HCl 100 MG TABLET PO SCH (22:11)
[2019-10-28] MEDS: GUAIFENESIN/CODEINE 200MG/20MG 10ML UDC PO PRN (22:11)
[2019-10-28] MEDS: CALCIUM 600MG + VIT D 400 IU TAB PO SCH (22:11)
[2019-10-28] MEDS: PREGABALIN 150 MG CAP PO SCH (22:11)
[2019-10-28] MEDS: DICLOFENAC SODIUM 75 MG TABCR PO SCH (22:11)
[2019-10-29] MEDS: ACETAMINOPHEN 325 MG TAB PO PRN (04:37)
[2019-10-29] MEDS: GUAIFENESIN/CODEINE 200MG/20MG 10ML UDC PO PRN ×2 (04:38→11:32)
[2019-10-29] MEDS ORDERED: LEVOTHYROXINE SODIUM 175 MCG TABLET PO SCH (06:30)
[2019-10-29 06:53] LABS: Hematocrit (blood only) 34.9 % (37-47); Hemoglobin 11.5 g/dL (12.0-16.0); Mean Corpuscular Hemoglobin 29.3 pg (25-34); Mean Platelet Volume 9.1 fL (7.4-10.4); Platelet Count 191 K/uL (130-400); RDW Coefficient of Variation 14.4 % (11.5-14.5); RDW Standard Deviation 46.9 fL (36.4-46.3); Red Blood Count 3.92 M/uL (4.2-5.4); White Blood Count 11.09 K/uL (4.8-10.8)
[2019-10-29 07:19] LABS: BUN Creatinine Ratio 30.7 (10-20); Calcium 8.2 mg/dl (8.5-10.1); Creatinine Clr Calc Pharmacy 140.7 ml/min; Est GFR (African American) 115.3; Est GFR (Non-African American) 99.4; Potassium 3.7 mmol/L (3.5-5.1)
[2019-10-29] MEDS ORDERED: FERROUS SULFATE 325 MG TAB PO SCH (09:00)
[2019-10-29] MEDS ORDERED: PANTOprazole 40 MG TAB PO SCH (09:00)
[2019-10-29] MEDS ORDERED: FLUOXETINE HCL 20 MG CAP PO SCH (09:00)
[2019-10-29] MEDS ORDERED: MULTIVITAMIN TAB PO SCH (09:00)
[2019-10-29] MEDS ORDERED: OMEGA-3 (PURIFIED FISH OIL) 1 GM CAP PO SCH (09:00)
[2019-10-29] MEDS ORDERED: ZINC SULFATE 220 MG CAPSULE PO SCH (09:00)
[2019-10-29] MEDS ORDERED: POTASSIUM CHLORIDE 20 MEQ TABCR PO SCH (09:00)
[2019-10-29] MEDS ORDERED: FUROSEMIDE 40 MG TAB PO SCH (09:00)
[2019-10-29] MEDS: PREGABALIN 150 MG CAP PO SCH (09:04)
[2019-10-29] MEDS: DICLOFENAC SODIUM 75 MG TABCR PO SCH (09:05)
[2019-10-29] MEDS: buPROPion HCl 100 MG TABLET PO SCH (09:05)
[2019-10-29] MEDS: CALCIUM 600MG + VIT D 400 IU TAB PO SCH (09:05)
[2019-10-29] MEDS ORDERED: FLUOXETINE HCL 20 MG CAP PO ONE (10:15)
--- NOTE | 2019-10-29 12:52 | Discharge Summary ---
Date of Service October 29, 2019 Admission HPI Per Admitting Provider 54 yo F with worsening SOB and nonproductive cough presented to the ER after 1.5 weeks of symptoms. She was seen at urgent care on 10/21 after having 1 week of symptoms and was treated with prednisone 40mg daily. Four days later on 10/25 she presented with persistent symptoms. No fever noted. She was started on a zpak and given an additional course of prednisone taper. In the clinic on 10/25, she was also given a duoneb treatment and Decadron 10mg IV x one dose. On 10/21, COVID PCR was negative. Today, she reports worsening SOB and the beginnings of a fever with chills last night. Cough is still present and not improved and she generally felt worse. She arrived at the ER and was septic with a temp of 39C, a leukocytosis of 14K and LLL pneumonia seen on chest xray. She was given Tylenol, toradol and Cef epime as well as 1L IVF. Lactate was 2.1 with repeat 1.4 after resuscitation efforts in the ER. COVID-19 PCR was rechecked and pending. Admission Exam Per Admitting Provider CONSTITUTIONAL: WNWD, vitals as above, generally well-appearing EYES: EOMI bilaterally, PERRL, normal conjunctivae, no scleral icterus ENT: external ear and nose normal, oropharynx clear, mucous membranes are moist NECK: trachea midline RESPIRATORY: diminished breath sounds at the bases bilaterally, no crackles, rales or wheezes, normal respiratory effort CARDIOVASCULAR: regular rate and rhythm, S1 and 2 heard without murmurs, gallops or rubs, no JVD, no peripheral edema GASTROINTESTINAL: soft, nontender, nondistended MUSCULOSKELETAL: strength 5/5 throughout, head is normocephalic and atraumatic SKIN: warm and dry NEUROLOGIC: CN 2-12 grossly intact, no sensory deficit, normal cognition, normal speech, no gross focal deficits. PSYCHIATRIC: alert cooperative and oriented to person, place and time. Principal Diagnosis sepsis 2/2 community-acquired pneumonia Discharge Exam CONSTITUTIONAL: WNWD, vitals as above, generally well-appearing EYES: normal conjunctivae, no scleral icterus ENT: external ear and nose normal, mucous membranes are moist NECK: trachea midline RESPIRATORY: Good air movement on auscultation, mild rale on RUL and LLL. No wheezing. Normal respiratory effort MUSCULOSKELETAL: head is normocephalic and atraumatic, ambulatory SKIN: warm and dry NEUROLOGIC: CN 2-12 grossly intact, no gross focal deficits. PSYCHIATRIC: alert cooperative and oriented to person, place and time. Discharge Data Allergies Allergy/AdvReac Type Severity Reaction Status Date / Time chlorhexidine Allergy Intermediate Rash Verified 10/28/19 16:42 nitrofurantoin Allergy Intermediate Rash Verified 10/28/19 16:42 [From Macrobid] Penicillins Allergy Intermediate Rash Verified 10/28/19 16:42 povidone-iodine Allergy Intermediate Hives Verified 10/28/19 16:42 Consultations 10/28/19 12:57 ED Decision to Admit Stat Hospital Course (1) Sepsis: (2) Left lower lobe pneumonia: Presented with sepsis picture to the ER including persistent respiratory symptoms despite recent trials of prednisone and two days of azithromycin outpatient therapy. She was defervesced with Tylenol and fever did not return during hospitalization. She was initially given broad spectrum cefepime and IVF with improvement in hemodynamics and normalization of lactate, initially >2. She was admitted to the Hospitalist service and placed on Levaquin monotherapy. She was given Robitussin AC with success in help with cough. COVID-19 was again ruled out. The following day she was sent home after remaining hemodynamically stable overnight and requiring no oxygen support. She did not exhibit tachypnea. Finalized blood cultures were pending at time of discharge. She was discharged in stable condition with close PCP appointment recommended in one week. Repeat CXR in 4 weeks recommended to ensure complete resolution of symptoms. Total Time Total Time Spent Total Time Spent (In Minutes): 60 Total Time Includes: Examination of the Patient, Discharge Planning, Medication Reconciliation and Communication With Other Providers Discharge Plan Discharge Items Patient Disposition: Home - Self-Care Reason For Visit: PNEUMONIA Discharge Diagnosis: Community-acquired pneumonia Condition on Discharge: Good Activity: Resume your previous activity Non-emergency contact: Primary Care Provider Call non-emergency contact if: you have any medication questions, your symptoms worsen, your pain is not controlled, your pain is worsening, your pain is unusual for you, your pain is concerning for you and you have a fever Follow-up/Referrals: Genet Liu MD [Primary Care Provider] - 11/03/19 11:00 am (11/03/2019 11:00 AM Provider Kandi Maldonado PA-C Department General Internal Medicine [facility] ) Diet: Regular Addtl Attending Provider Instructions: Please take all medications as instructed on discharge list below. Please follow-up with your primary care provider regarding the appointment above. Your blood cultures are pending at time of discharge. At this appointment you will ensure these were negative, ensure symptoms have improved/resolved, ensure no side effects of the medications, and PCP may order a repeat chest xray in 4 weeks to ensure complete resolution of pneumonia. It was a pleasure taking care of you! Please call if you have any questions or problems. You can reach a [facility] hospitalist on duty at [facility] 24 hours a day by calling [phone]. Take care of yourself. Oneyda Aguilar, [facility] Center[facility] Pending Studies at Discharge: Yes Studies:: blood cultures pending at time of discharge Stand-Alone Forms: My [facility], Work/School Release (Inpt), Smoking Cessation Medications and DC Order Prescriptions: New codeine-guaifenesin 10-100 mg/5 mL Liquid 10 ml PO Q6H PRN (Reason: cough) Qty: 120 RF: 0 levofloxacin [Levaquin] 750 mg tablet 750 mg PO DAILY Qty: 7 RF: 0 pseudoephedrine HCl [Sudafed 12 Hour] 120 mg tablet extended release 120 mg PO Q12H PRN (Reason: congestion) Qty: 20 RF: 0 Continued levothyroxine 175 mcg tablet 175 mcg PO DAILY RF: 0 bupropion HCl 100 mg tablet 100 mg PO BID RF: 0 omeprazole 20 mg capsule,delayed release(DR/EC) 20 mg PO DAILY RF: 0 hydroxyzine HCl 25 mg tablet 25 mg PO TID PRN (Reason: Anxiety) RF: 0 fluoxetine 20 mg capsule 60 mg PO DAILY RF: 0 multivitamin Tablet 1 tab PO QAM RF: 0 ferrous sulfate 325 mg (65 mg iron) Tablet 325 mg PO QAM RF: 0 zinc 50 mg Tablet 50 mg PO QAM RF: 0 ergocalciferol (vitamin D2) 50,000 unit capsule 50,000 unit PO WK RF: 0 omega [id number] oil [Fish Oil] 1,000 mg (120 mg-180 mg) Capsule 1 cap PO QAM RF: 0 Caltrate 600 plus D 600 mg (1,500 mg)-800 unit Tablet,Chewable 1 tab PO BID RF: 0 furosemide [Lasix] 40 mg Tablet 40 mg PO QAM RF: 0 potassium chloride 20 mEq Tablet Extended Release 20 meq PO QAM RF: 0 trazodone 100 mg tablet 100 mg PO HS RF: 0 pregabalin [Lyrica] 150 mg capsule 150 mg PO BID RF: 0 diclofenac sodium 75 mg tablet,delayed release (DR/EC) 75 mg PO BID RF: 0 Discontinued azithromycin 250 mg tablet 250 mg PO DAILY RF: 0 Discharge Orders: Discharge Order (Routine); Ordered 10/29/19 Ordered By: Oneyda Aguilar Admission Data Admit Date/Time: 10/28/19 13:38 Attending Provider: Oneyda Aguilar Admit Provider: Oneyda Aguilar Primary Care Provider: Genet Liu Other Providers: Oneyda Aguilar
[2019-10-30] MEDS ORDERED: FLUOXETINE HCL 20 MG CAP PO SCH (09:00)
== END 2019-10-29 15:16 | disposition home or self-care (01) | DRG 871 ==
LOC: ED 10:12 → 2S 13:38 → 2W 10-29 12:30

== ENCOUNTER 2019-12-03 10:26 | Observation (INO) ==
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
[~2019-12-03 10:26] MED LIST changes: +BUPIVACAINE 0.5 % 5 MG/1 ML PF 10ML VIAL ONE; -CEFAZOLIN 2000MG 2,000 MG/15 ML SYR IV SCH; +CEFAZOLIN 3000MG 72.5 ML IV SCH; -CEFAZOLIN: ALLERGY NOTED TO ORDERED MEDICATION SCH; -GABAPENTIN 300 MG x 3 PO SCH; +GABAPENTIN 900 MG DOSE PO SCH; +ROPIVACAINE 0.5% 5 MG/ML 30 ML VIAL ONE; -TRAMADOL HCL 50 MG TABLET PO SCH; +TRANEXAMIC ACID 1,000 MG **IV Intra-op IV SCH
--- NOTE | 2019-12-03 10:42 | History & Physical Bridge Note ---
Date of Service December 03, 2019 History & Physical Bridge Note I have examined the patient, reviewed the History & Physical and in the interval since the performance of the History & Physical I have noted the following changes of clinical significance: no changes noted
[2019-12-03] MEDS ORDERED: MIDAZOLAM HCL 1 MG/ML 2ML VIAL ONE ×3 (11:05→13:13)
[2019-12-03] MEDS ORDERED: ONDANSETRON INJ 2 MG/ML 2 ML VIAL IV PRN ×2 (12:32→17:14)
[2019-12-03] MEDS ORDERED: HYDROmorphone INJ 1 MG/ML SYRINGE IV PRN (12:32)
[2019-12-03] MEDS ORDERED: KETOROLAC 30 MG/ML VIAL IV PRN (12:32)
[2019-12-03] MEDS ORDERED: ePHEDrine sulfate 50 MG/ML AMP IV PRN (12:32)
[2019-12-03] MEDS ORDERED: ATROPINE SULFATE 0.1 MG/ML 10ML SYR IV PRN (12:32)
[2019-12-03] MEDS ORDERED: SODIUM CHLORIDE 0.9% PF 50 ML VIAL ONE (12:49)
[2019-12-03] MEDS ORDERED: BUPIVACAINE LIPOSOME 1.3% 266 MG/20 ML VIAL ONE (12:49)
[2019-12-03] MEDS ORDERED: BACITRACIN INJ 50,000 UNIT VIAL ONE (12:49)
[2019-12-03] MEDS ORDERED: BUPIVACAINE/EPINEPHRINE 0.25% 1:200,000 30 ML VIAL ONE (12:49)
[2019-12-03] MEDS ORDERED: VANCOMYCIN HCL 1000MG/20ML VIAL ONE (12:50)
[2019-12-03] MEDS ORDERED: PROPOFOL IV EMULSION 10 MG/ML 20 ML VIAL IV ONE ×4 (13:27→13:47)
--- NOTE | 2019-12-03 15:25 | Post Operative Brief Note ---
PG Immediate Post Op with CF Date of Surgery December 03, 2019 Pre & Post Diagnosis Operation Date: 12/03/19 12:45 Pre-Op Diagnosis: Right Knee Advanced Degenerative Joint Disease Post-Op Diagnosis: Right Knee Advanced Degenerative Joint Disease I identified the patient and participated in the time-out.: Yes Procedure Operation Date: 12/03/19 12:45 Actual Procedures p Right Total Knee Arthroplasty(Right) - Peter Lemon MD Surgeon Peter Lemon MD Sample Checker Erendira, PAC Estimated Blood Loss 100 Findings Consistent with Post-Op Diagnosis Fluids 1500 cc Specimens Specimen Description: Permanent A. Right knee bone and tissue Drains Mike Catheter (hibiclens and water used for prep of mike catheter due to patient's iodine allergy) Anesthesia Type Spinal MAC Complications none Disposition Accompanied Patient To Recovery: No Disposition: Recovery Room
--- NOTE | 2019-12-03 15:59 | Anesthesiology Progress Note ---
Date of Service December 03, 2019 Anesthesia Post Procedure Vital Signs Vital Signs: Temp Pulse Pulse Resp BP BP Pulse Ox 12/03/19 15:50 61 16 118/67 97 12/03/19 15:40 60 16 126/71 97 12/03/19 15:33 36.0 C L 64 16 111/68 98 12/03/19 11:41 37.5 C 61 20 106/34 L 98 Pain Intensity Right Knee: Pain Intensity: 8 Transfer of Care Handoff Completed per policy Notes Mental Status: alert / awake / arousable Patient Amnestic to Procedure: Yes Nausea / Vomiting: adequately controlled Pain: adequately controlled Airway Patency, RR, SpO2: stable & adequate BP & HR: stable & adequate Hydration State: stable & adequate Neuraxial Anesthesia: was administered and sensory block is resolving Anesthetic Complications: no major complications apparent
--- NOTE | 2019-12-03 16:00 | XRay Report ---
RIGHT KNEE 2 VIEWS History: Right total knee arthroplasty. Degenerative arthritis. Postop. FINDINGS: The patient is status post a right total knee arthroplasty. The hardware is intact. No frac ture or dislocation. Skin vanessa are in place. IMPRESSION: Right total knee arthroplasty. No evidence for hardware complication. ACT 112: Negative or not required by law. Electronically signed by: Quincy Perez M.D. 12/03/2019 3:58 PM
[2019-12-03] MEDS ORDERED: bisacodyL 10 MG SUPP PR PRN (17:14)
[2019-12-03] MEDS ORDERED: MAGNESIUM HYDROXIDE SUSP 30 ML UDC PO PRN (17:14)
[2019-12-03] MEDS ORDERED: ALUMINUM/MAGNESIUM SUSP 30 ML UDC PO PRN (17:14)
[2019-12-03] MEDS ORDERED: HYDROmorphone INJ 0.5 MG/0.5 ML SYR IV PRN (17:14)
[2019-12-03] MEDS ORDERED: METOCLOPRAMIDE HCL INJ 5 MG/ML 2 ML VIAL IV PRN (17:14)
[2019-12-03] MEDS ORDERED: NALOXONE HCL 0.4 MG/1 ML VIAL/CARP IV PRN (17:14)
[2019-12-03] MEDS: CHECK SCOPOLAMINE PATCH PLACEMENT SCH (17:34)
[2019-12-03] MEDS: SODIUM CHLORIDE 0.9% 1000ML 1,000 ML IV SCH (17:49)
--- NOTE | 2019-12-03 17:58 | Operative Report ---
Post Operative Report Pre & Post Diagnosis Operation Date: 12/03/19 12:45 Pre-Op Diagnosis: Right Knee Advanced Degenerative Joint Disease Post-Op Diagnosis: Right Knee Advanced Degenerative Joint Disease I identified the patient and participated in the time-out.: Yes Procedure Operation Date: 12/03/19 12:45 Actual Procedures p Right Total Knee Arthroplasty(Right) - Peter Lemon MD Surgeon Peter Lemon MD Brown Stock Washer Erendira, PAC Estimated Blood Loss 100 Findings Consistent with Post-Op Diagnosis Operative findings revealed advanced grade [id number] diseaseIn all 3 compartments most severe in the medial compartment. Fluids 1500 cc Specimens Right knee sent for pathology. Drains None. Anesthesia Type Spinal MAC Complications none Disposition Accompanied Patient To Recovery: No Disposition: Recovery Room Indications Patient is a 54-year-old morbidly obese female whose had a long history of bilateral knee pain discomfort. She did undergo a gastric bypass surgery and had a 200 pound weight loss.. She underwent a left knee replacement about a year ago is done pretty well from this. She now elected proceed with right total knee arthroplasty. She failed all conservative measures. Description of Procedure Operative implants consist of: 1. Biomet Vanguard size 65 right posterior by femoral component. 2. Biomet size 80 with small cruciate wing, 15 x 80 mm offset stem with a 5.0 mm offset. 3. mm Posterior stabilized polyethylene insert. 4. 31 x 8 all poly-patella. Patient was taken to the operating room identified and placed on the operating table supine position protectors were properly padded. IV antibiotics were tried by anesthesia team. A spinal anesthetic and abductor canal block had been provided holding area. A Feliciano catheter was placed in sterile fashion. Right thigh tach was then placed in the right lower extremity was then prepped and draped in usual sterile fashion. He was then performed through a longitudinal incision centered over the patella. Sharp dissection was got through subcutaneous tissue down the extensor mechanism. A medial parapatellar arthrotomy incision was made. Some subperiosteal dissection was carried out medially. The fat pad was resected from each patella tendon. The lateral patellofemoral ligament was really released and the patella was subluxated laterally. The knee was flexed. The osteophytes were taken off distal femur. The ACL and PCL were then released from distal femur the tibia subluxated anteriorly.The tibial eminence was resected. The intramedullary canal was then reamed beginning with a size 10 and reamed up to 15. I then cut the proximal tibia using the IM guide taken to Removed 2 mm from the most efficient aspect medial till plateau. Tibia was then sized to a size 71. We then prepared the proximal tibia for a small cruciate wing with a 5 mm offset and an 80 x 15 stem. This implant was assembled and placed in the tibia. Attention drawn the femur. Suction. A right 5 degree valgus cutting guide was placed. Distal femoral cutting block was pinned in place. Distal femoral cut was made to take an additional 3 mm of bone off distal femur. The femur was then sized to a size 65. The AP cutting block was pinned parallel to the epicondylar axis which was 3 degrees of external rotation. The anterior cut, anterior chamfer, posterior cut, posterior chamfer cuts were made. Box cutting guide was placed in justSu ction. A right 5 degree valgus cutting guide was placed. Distal femoral cutting block was pinned in place. Distal femoral cut was made to take an additional 3 mm of bone off distal femur. The femur was then sized to a size 65. The AP cutting block was pinned parallel to the epicondylar axis which was 3 degrees of external rotation. The anterior cut, anterior chamfer, posterior cut, posterior chamfer cuts were made. Box cutting guide was placed AdjustedSlightly lateral.The box cut was made. The knee was flexed. The remnants of the medial lateral menisci were excised. The osteophytes were taken off the posterior aspect of the femur. A trial femoral component was placed. I then trialed the knee and the 10 mm insert fit most appropriately. Attention drawn the patella. The patella was cleaned of all soft tissues. Patella thickness measured 19 mm. It was cut down to 13. Was sized to a size 31 patella. Locals were drilled for 31 patella. The lateral osteophyte is moved. Patella button was placed. Knee was taken through range of motion patella tracked nicely with no thumbs test. Attention drawn to placing the permanent components. All trial components were removed. The knee was irrigated with copious amounts of pulsatile lavage solution. A double batch of Palacos G cement was mixed with initial gram of vancomycin due to her immunocompromise status and large size and increased risk of infection., A size 71 tibial tray with a stem, a 10 mm posterior box polyethylene insert, and a 31 x 8 all poly-patella then cement in place. The knee was brought out into full extension until cement hardened. A final cement check was then performed.The pericapsular tissues were injected with a total of 100 cc of combination of 20 cc of Exparel, 30 cc normal saline, 50 cc of quarter percent Marcaine with epinephrine. Patient did receive 1 g tranexamic acid per the tech was then let down for tourniquet time 72 minutes. Hemostasis assured use electrocautery. Extensor macros then closed with combination 1 PDS suture #1 Vicryl suture in [id number] fashion. Extensor mechanism checked found to be intact the subcutaneous tissue then closed with 2 Dexon suture in a buried interrupted fashion skin was closed skin vanessa. Leg was then cleaned dried a sterile dressing composed Xeroform, 4 x 4's, sterile cast padding, Felix bandage were applied. Patient then transferred to the recovery room in stable condition. Patient tolerated procedure well no complications. I attest to the content of the Intraoperative Record and any orders documented therein. Any exceptions are noted below.
[2019-12-03] MEDS: OXYCODONE HCL IR 5 MG TAB (IMMEDIATE RELEASE) PO PRN (18:28)
[2019-12-03] MEDS: FERROUS GLUCONATE 324 MG TAB PO SCH (18:30)
[2019-12-03] MEDS: ASCORBIC ACID 500 MG TAB PO SCH (18:31)
[2019-12-03] MEDS: KETOROLAC 30 MG/ML VIAL IV SCH (18:31)
[2019-12-03] MEDS ORDERED: TRAZODONE HCL 100 MG TAB PO SCH (21:00)
[2019-12-03] MEDS ORDERED: SENNA 8.6 MG TAB PO SCH (21:00)
[2019-12-03] MEDS ORDERED: FLUOXETINE HCL 20 MG CAP PO SCH (21:00)
[2019-12-03] MEDS ORDERED: TRANEXAMIC ACID / 0.7% NACL 1,000 MG/100 ML BAG IV SCH (21:29)
[2019-12-03] MEDS: CALCIUM 600MG + VIT D 400 IU TAB PO SCH (21:38)
[2019-12-03] MEDS: ASPIRIN 81 MG ECTAB PO SCH (21:38)
[2019-12-03] MEDS: PREGABALIN 150 MG CAP PO SCH (21:39)
[2019-12-03] MEDS: TAPENTADOL HCL ER 50 MG TABCR PO SCH (21:39)
[2019-12-03] MEDS: buPROPion HCl 100 MG TABLET PO SCH (21:40)
[2019-12-03] MEDS: DOCUSATE SODIUM 100 MG CAP PO SCH (21:41)
[2019-12-03] MEDS: ACETAMINOPHEN 500 MG TAB PO SCH (21:41)
[2019-12-03] MEDS: CEFAZOLIN 2000MG 2,000 MG/15 ML SYR IV SCH (21:41)
[2019-12-04] MEDS: KETOROLAC 30 MG/ML VIAL IV SCH ×3 (00:13→12:43)
[2019-12-04] MEDS: SODIUM CHLORIDE 0.9% 1000ML 1,000 ML IV SCH (00:18)
[2019-12-04] MEDS: OXYCODONE HCL IR 5 MG TAB (IMMEDIATE RELEASE) PO PRN ×4 (00:19→15:05)
[2019-12-04] MEDS: CHECK SCOPOLAMINE PATCH PLACEMENT SCH ×2 (00:30→09:13)
[2019-12-04] MEDS: ACETAMINOPHEN 500 MG TAB PO SCH ×2 (05:07→12:44)
[2019-12-04] MEDS: CEFAZOLIN 2000MG 2,000 MG/15 ML SYR IV SCH (05:07)
[2019-12-04 05:40] LABS: Hematocrit (blood only) 33.1 % (37-47); Hemoglobin 10.6 g/dL (12.0-16.0); Mean Corpuscular Hemoglobin 29.1 pg (25-34); Mean Corpuscular Volume 90.9 fL (80-100); Mean Platelet Volume 9.2 fL (7.4-10.4); Platelet Count 165 K/uL (130-400); RDW Coefficient of Variation 13.9 % (11.5-14.5); RDW Standard Deviation 45.7 fL (36.4-46.3); Red Blood Count 3.64 M/uL (4.2-5.4)
[2019-12-04 06:24] LABS: BUN Creatinine Ratio 16.8 (10-20); Est GFR (African American) 97.7; Est GFR (Non-African American) 84.3; Potassium 4.4 mmol/L (3.5-5.1)
[2019-12-04] MEDS ORDERED: LEVOTHYROXINE SODIUM 175 MCG TABLET PO SCH (06:30)
[2019-12-04] MEDS ORDERED: MULTIVITAMIN TAB PO SCH ×2 (09:00)
[2019-12-04] MEDS ORDERED: LACTOBACILLUS ACIDOPHILUS (FLORANEX) TAB PO SCH (09:00)
[2019-12-04] MEDS ORDERED: ZINC SULFATE 220 MG CAPSULE PO SCH (09:00)
[2019-12-04] MEDS ORDERED: FUROSEMIDE 40 MG TAB PO SCH (09:00)
[2019-12-04] MEDS ORDERED: POTASSIUM CHLORIDE 20 MEQ TABCR PO SCH (09:00)
[2019-12-04] MEDS ORDERED: PANTOprazole 40 MG TAB PO SCH (09:00)
[2019-12-04] MEDS: TAPENTADOL HCL ER 50 MG TABCR PO SCH (09:14)
[2019-12-04] MEDS: PREGABALIN 150 MG CAP PO SCH (09:14)
[2019-12-04] MEDS: ASCORBIC ACID 500 MG TAB PO SCH (09:15)
[2019-12-04] MEDS: FERROUS GLUCONATE 324 MG TAB PO SCH (09:15)
[2019-12-04] MEDS: ASPIRIN 81 MG ECTAB PO SCH (09:16)
[2019-12-04] MEDS: CALCIUM 600MG + VIT D 400 IU TAB PO SCH (09:16)
[2019-12-04] MEDS: DOCUSATE SODIUM 100 MG CAP PO SCH (09:16)
[2019-12-04] MEDS: buPROPion HCl 100 MG TABLET PO SCH (09:16)
--- NOTE | 2019-12-04 09:36 | Progress Notes ---
DATE: 12/04/2019 SUBJECTIVE: A 54-year-old white female postop day 1 from a right knee replacement. She is doing pretty well. Having some pain, but seems to be controlled. Denies any new complaints of chest pain or shortness of breath. Had a pretty reasonable night. She is hoping to go home today if doing okay. OBJECTIVE: VITAL SIGNS: Temperature 36.5. Vital signs stable. GENERAL: Physical examination shows a pleasant, middle-aged female. She is sitting up in bed, looks pretty comfortable. LUNGS: Clear to auscultation. HEART: Has regular rate and rhythm. ABDOMEN: Soft, nontender, nondistended. EXTREMITIES: Grossly neurovascularly intact except as follows. Examination of the right leg reveals the leg to be well aligned. Dressing is clean, dry and intact. She can dorsiflex and plantarflex her foot appropriately. She is neurologically intact. LABORATORY DATA: Hemoglobin 10.6. Hematocrit 33.1. Electrolytes are stable. ASSESSMENT: A 54-year-old white female postop day 1 from right knee replacement, doing pretty well. Pain is reasonably well controlled. She is neurologically intact. She is anemic, but asymptomatic. PLAN: 1. DVT prophylaxis include thigh-high TEDs, SCDs and aspirin twice a day. 2. PT/OT, weight bear as tolerated. Right total knee protocol. 3. Pain control, doing okay with current pain regimen. 4. Disposition: She is hoping to be discharged to home with some home health if does okay in therapy day.
[2019-12-07] MEDS ORDERED: ERGOCALCIFEROL 50,000 UNITS CAP PO SCH (09:00)
--- NOTE | 2019-12-11 12:53 | Discharge Summary ---
Date of Service December 11, 2019 Admission HPI Per Admitting Provider Documented in the H&P Admission Exam (Per Admitting) Constitutional Documented in the H&P Discharge Data Consultations 12/03/19 17:14 Consult Case Management - Discharge Planning Routine Procedures Performed Operation Date: 12/03/19 12:45 Actual Procedures p Right Total Knee Arthroplasty(Right) - Peter Lemon MD Hospital Course (1) Status post total right knee replacement: 54-year-old female noted on 12/03/2019 and underwent total knee replacement. She tolerated procedure well and there were no complications. She was transferred to the PACU postoperatively and later to the orthopedic for further care. She is given Ancef for antibiotic prophylaxis. She is given FREIDA stockings, SCDs, and aspirin for DVT prophylaxis. Her hemoglobin, hematocrit, and vital signs were monitored during hospital stay remained stable. Should not require blood transfusions. There are no complications. A postoperative day 1 she was tolerating a regular diet, pain was controlled with oral pain medicine, and she was participating in physical therapy. On postop day 1 she was discharged home set up with home health services. She was given printed discharge instruction as well as new prescriptions for extra strength Tylenol, aspirin, and oxycodone. Continue physical therapy. Continue FREIDA stockings. She is weightbearing as tolerated. Follow-up approximately 2 weeks postop or sooner if any problems or concerns. Coding Level of Care Code None Diagnoses Status post total right knee replacement Z96.651
== END 2019-12-04 15:26 | disposition home health service (06) ==
LOC: 3E 10:26 → ASU 10:26
DX: Z98.84 Bariatric surgery status; Z77.22 Contact with and (suspected) exposure to environmental tobacco smoke (acute) (chronic); E03.9 Hypothyroidism, unspecified; Z79.890 Hormone replacement therapy; E66.01 Morbid (severe) obesity due to excess calories; E06.3 Autoimmune thyroiditis; M17.11 Unilateral primary osteoarthritis, right knee; Z79.899 Other long term (current) drug therapy; Z11.59 Encounter for screening for other viral diseases; Z88.8 Allergy status to other drugs, medicaments and biological substances; F43.10 Post-traumatic stress disorder, unspecified; Z88.1 Allergy status to other antibiotic agents; F32.9 Major depressive disorder, single episode, unspecified; E55.9 Vitamin D deficiency, unspecified; Z88.3 Allergy status to other anti-infective agents; G47.33 Obstructive sleep apnea (adult) (pediatric); Z88.0 Allergy status to penicillin; M79.7 Fibromyalgia

== ENCOUNTER 2020-01-04 11:56 | Inpatient (IN) ==
[2020-01-04] MEDS ORDERED: HYDROmorphone INJ 1 MG/ML SYRINGE IV STA (12:07)
[2020-01-04] MEDS ORDERED: ONDANSETRON INJ 2 MG/ML 2 ML VIAL IV STA (12:07)
[2020-01-04] MEDS: SODIUM CHLORIDE 0.9% 1000ML 1,000 ML IV SCH ×3 (12:14→23:36)
[2020-01-04 12:41] LABS: Basophils # (auto) 0.03 K/uL (0-0.2); Basophils % (auto) 0.3 %; Eosinophils # (auto) 0.21 K/uL (0-0.5); Eosinophils % (auto) 1.9 %; Hematocrit (blood only) 35.2 % (37-47); Hemoglobin 11.6 g/dL (12.0-16.0); Immature Granulocytes # (auto) 0.03 K/uL (0.00-0.02); Immature Granulocytes % (auto) 0.3 %; Lymphocytes # (auto) 1.16 K/uL (1.2-3.4); Lymphocytes % (auto) 10.6 %; Mean Corpuscular Hemoglobin 29.4 pg (25-34); Mean Corpuscular Volume 89.3 fL (80-100); Mean Platelet Volume 9.3 fL (7.4-10.4); Monocytes # (auto) 0.69 K/uL (0.11-0.59); Monocytes % (auto) 6.3 %; Neutrophils # (auto) 8.83 K/uL (1.4-6.5); Neutrophils % (auto) 80.6 %; Platelet Count 212 K/uL (130-400); RDW Coefficient of Variation 13.7 % (11.5-14.5); RDW Standard Deviation 45.1 fL (36.4-46.3); Red Blood Count 3.94 M/uL (4.2-5.4); White Blood Count 10.95 K/uL (4.8-10.8)
--- NOTE | 2020-01-04 12:50 | XRay Report ---
XR knee RT 1 or 2V routine CLINICAL HISTORY: right, TKA, wound dehiscence, fall COMPARISON: Right knee radiographs November 28, 2019. FINDINGS: Note is made of a comminuted displaced periprosthetic fracture of the distal right femur. The fracture extends from the distal shaft to the femoral component of the knee arthroplasty. Fractur e is displaced up to 1.6 cm. Several bone fragments are present. There is no proximal right tibial or fibular fracture. IMPRESSION: Comminuted displaced distal right femoral periprosthetic fracture. ACT 112: Negative or not required by law. Electronically signed by: Zachery Raines M.D. 01/04/2020 12:49 PM
--- NOTE | 2020-01-04 12:50 | XRay Report ---
XR chest 1V portable CLINICAL HISTORY: trauma trauma COMPARISON STUDY: 10/28/2019 FINDINGS: Mild stable cardiomegaly. Lungs are considered clear. Diaphragms are smooth. IMPRESSION: No acute process. ACT 112: Negative or not required by law. The above report was generated using voice recognition software. It may contain grammatical, syntax or spelling errors. Electronically signed by: Toy Faulkner M.D. 01/04/2020 12:49 PM
[2020-01-04 13:00] LABS: Est GFR (African American) 85.7; Potassium 4.1 mmol/L (3.5-5.1)
[2020-01-04 13:01] LABS: BUN Creatinine Ratio 16.1 (10-20); Calcium 8.2 mg/dl (8.5-10.1); Creatinine Clr Calc Pharmacy 107.6 ml/min
[2020-01-04 13:03] LABS: Albumin Globulin Ratio 0.8 (0.9-2); Bilirubin,Total 0.3 mg/dl (0.2-1); Globulin 3.6 gm/dl (2.5-4.0); Total Protein 6.6 gm/dl (6.4-8.2)
[2020-01-04] MEDS ORDERED: cefTRIAXone SODIUM 2,000 MG/70 ML BAG IV STA (13:08)
[2020-01-04] MEDS: HYDROmorphone INJ 0.5 MG/0.5 ML SYR IV PRN ×2 (13:21→14:01)
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
[2020-01-04] MEDS ORDERED: HYDROmorphone INJ 0.5 MG/0.5 ML SYR IV STA (15:10)
[2020-01-04] MEDS ORDERED: LIDOCAINE HCL 2% 2 ML VIAL/AMP(20MG/ML) INFIL ONE (15:14)
[2020-01-04] MEDS ORDERED: PROPOFOL IV EMULSION 10 MG/ML 20 ML VIAL IV ONE ×2 (15:14→15:15)
[2020-01-04] MEDS ORDERED: MIDAZOLAM HCL 1 MG/ML 2ML VIAL ONE (15:15)
[2020-01-04] MEDS ORDERED: BACITRACIN INJ 50,000 UNIT VIAL ONE (15:22)
[2020-01-04] MEDS ORDERED: fentaNYL citrate 100 MCG/2 ML VIAL ONE ×3 (15:30→16:38)
[2020-01-04] MEDS ORDERED: SUCCINYLCHOLINE 100MG/5ML SYR IV ONE (15:30)
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
[2020-01-04] MEDS ORDERED: PROMETHAZINE HCL 12.5 MG in SODIUM CHLORIDE 0.9% 50 ML IV PRN (15:46)
[2020-01-04] MEDS ORDERED: fentaNYL citrate 100 MCG/2 ML VIAL IV PRN (15:46)
[2020-01-04] MEDS ORDERED: ATROPINE SULFATE 0.1 MG/ML 10ML SYR IV PRN (15:46)
[2020-01-04] MEDS ORDERED: ONDANSETRON INJ 2 MG/ML 2 ML VIAL IV PRN ×2 (15:46→21:13)
[2020-01-04] MEDS ORDERED: ePHEDrine sulfate 50 MG/ML AMP IV PRN (15:46)
[2020-01-04] MEDS ORDERED: HYDROmorphone INJ 2 MG/ML SYR/VIAL ONE (16:59)
[2020-01-04] MEDS ORDERED: ACETAMINOPHEN 1000 MG/100 ML IV IV ONE (17:01)
[2020-01-04] MEDS ORDERED: CEFAZOLIN 2000MG 2,000 MG/15 ML SYR IV ONE (17:30)
[2020-01-04] MEDS ORDERED: VANCOMYCIN HCL 1000MG/20ML VIAL ONE (17:58)
[2020-01-04] MEDS ORDERED: ALBUMIN HUMAN 5% 12.5 GM/250 ML VIAL IV ONE (18:05)
[2020-01-04] MEDS ORDERED: VANCOMYCIN HCL 1,000 MG/270 ML BAG IV ONE (18:30)
--- NOTE | 2020-01-04 18:43 | Fluoroscopy Report ---
FL femur RT 2V CLINICAL HISTORY: Postoperative examination COMPARISON STUDY: 01/04/2020 FLUOROSCOPY TIME: 135 seconds. NUMBER OF FLUOROSCOPIC IMAGES: 4 FINDINGS: There has been internal fixation of the patient's distal femoral periprosthetic fracture wi th an interlocking intramedullary yusuf. A distal transversely oriented nail is visualized in addition to a transversely oriented interlocking medullary yusuf screw. Proximally the yusuf is fixated with a sin gle screw. The fracture is mildly distracted. IMPRESSION: Internally fixated distal femoral periprosthetic fracture. ACT 112: Negative or not required by law. Electronically signed by: Meliton Fisher M.D. 01/04/2020 6:41 PM
--- NOTE | 2020-01-04 19:13 | Post Operative Brief Note ---
PG Immediate Post Op with CF Date of Surgery January 04, 2020 Pre & Post Diagnosis Operation Date: 01/04/20 07:00 Pre-Op Diagnosis: Right Periprosthetic supracondylar fracture of femur Post-Op Diagnosis: Right Periprosthetic supracondylar fracture of femur I identified the patient and participated in the time-out.: Yes Procedure Operation Date: 01/04/20 07:00 Actual Procedures p Right Knee Incision and Drainage(Right) - Peter Lemon MD s Intramedullary Basilio Femur Retrograde(Right) - Peter Lemon MD Surgeon Peter Lemon MD Medical Record Administrator Erendira, PAC Estimated Blood Loss 300 Findings Consistent with Post-Op Diagnosis Fluids 1800 cc Specimens Specimen Description: None per surgeon. Drains Feliciano Catheter Anesthesia Type General Complications none Disposition Accompanied Patient To Recovery: No Disposition: Recovery Room
[2020-01-04] MEDS: HYDROmorphone INJ 2 MG/ML SYR/VIAL IV PRN ×4 (19:43→19:58)
[2020-01-04] MEDS ORDERED: HYDROmorphone INJ 2 MG/ML SYR/VIAL IV STA (20:04)
[2020-01-04] MEDS ORDERED: MEPERIDINE HCL 50 MG/ML CARP ONE (20:10)
[2020-01-04] MEDS ORDERED: MEPERIDINE HCL 50 MG/ML CARP IV ONE (20:15)
--- NOTE | 2020-01-04 20:30 | Communication Note ---
Date of Service: January 04, 2020 Dr. Valdivia completed the anesthetic for this patient. While in PACU the patient has been complaining of significant pain despite receiving multiple analgesics including IV ketorolac and IV acetaminophen. She was given hydromorphone 2 mg IV and meperidine 50 mg IV push by me. She continues to complain of pain so an IV will be obtained on the other arm. The patient's vital signs have been stable in PACU with SpO2 [address] Valdivia is aware of the patient's pain levels and will reassess her prior to signing her out of PACU.
[2020-01-04] MEDS ORDERED: LORazepam 2 MG/4 ML VIAL ONE (20:31)
[2020-01-04] MEDS ORDERED: LORazepam 1 MG/2 ML VIAL IV STA (20:35)
[2020-01-04] MEDS ORDERED: MAGNESIUM HYDROXIDE SUSP 30 ML UDC PO PRN (21:13)
[2020-01-04] MEDS ORDERED: ASPIRIN 81 MG ECTAB PO SCH (21:13)
[2020-01-04] MEDS ORDERED: HYDROmorphone INJ 0.5 MG/0.5 ML SYR IV PRN (21:13)
[2020-01-04] MEDS ORDERED: METOCLOPRAMIDE HCL INJ 5 MG/ML 2 ML VIAL IV PRN (21:13)
[2020-01-04] MEDS ORDERED: NALOXONE HCL 0.4 MG/1 ML VIAL/CARP IV PRN (21:13)
[2020-01-04] MEDS ORDERED: bisacodyL 10 MG SUPP PR PRN (21:13)
[2020-01-04] MEDS ORDERED: ALUMINUM/MAGNESIUM SUSP 30 ML UDC PO PRN (21:13)
--- NOTE | 2020-01-04 21:32 | Anesthesiology Progress Note ---
Date of Service January 04, 2020 Anesthesia Post Procedure Vital Signs Vital Signs: Temp Pulse Pulse Resp BP BP Pulse Ox 01/04/20 20:50 36.7 C 70 22 132/62 100 01/04/20 20:40 36.7 C 68 22 135/57 L 97 01/04/20 20:30 36.7 C 72 17 115/57 L 98 01/04/20 20:10 73 17 120/65 98 01/04/20 20:00 73 17 102/56 L 99 01/04/20 19:50 68 20 113/62 99 01/04/20 19:40 36.2 C L 68 98 H 105/59 L 98 01/04/20 14:50 37.1 C 71 16 131/49 L 96 01/04/20 13:20 67 16 113/65 97 01/04/20 12:33 96 01/04/20 12:05 36.8 C 68 18 101/43 L 96 Pain Intensity Right Knee: Pain Intensity: 22 Transfer of Care Handoff Completed per policy Notes Mental Status: alert / awake / arousable and participated in evaluation Patient Amnestic to Procedure: Yes Nausea / Vomiting: adequately controlled Pain: adequately controlled Airway Patency, RR, SpO2: stable & adequate BP & HR: stable & adequate Hydration State: stable & adequate Anesthetic Complications: no major complications apparent and Pt Satisfied with anesthetic care
[2020-01-04] MEDS: SENNA 8.6 MG TAB PO SCH (22:17)
[2020-01-04] MEDS: CALCIUM 600MG + VIT D 400 IU TAB PO SCH (22:17)
[2020-01-04] MEDS: TRAZODONE HCL 100 MG TAB PO SCH (22:17)
[2020-01-04] MEDS: FLUOXETINE HCL 20 MG CAP PO SCH (22:17)
[2020-01-04] MEDS: buPROPion HCl 100 MG TABLET PO SCH (22:18)
[2020-01-04] MEDS: DOCUSATE SODIUM 100 MG CAP PO SCH (22:18)
[2020-01-04] MEDS: ASPIRIN 81 MG ECTAB PO SCH (22:18)
[2020-01-04] MEDS: PREGABALIN 150 MG CAP PO SCH (22:21)
[2020-01-04] MEDS: TAPENTADOL HCL ER 50 MG TABCR PO SCH (22:21)
[2020-01-04] MEDS: ACETAMINOPHEN 500 MG TAB PO SCH (22:33)
[2020-01-04] MEDS: KETOROLAC 30 MG/ML VIAL IV SCH (23:27)
[2020-01-04] MEDS: CEFAZOLIN 2000MG 2,000 MG/15 ML SYR IV SCH (23:27)
[2020-01-05] MEDS ORDERED: TRANEXAMIC ACID / 0.7% NACL 1,000 MG/100 ML BAG IV SCH (01:30)
[2020-01-05] MEDS: KETOROLAC 30 MG/ML VIAL IV SCH ×4 (03:41→21:16)
[2020-01-05] MEDS: LEVOTHYROXINE SODIUM 175 MCG TABLET PO SCH (06:29)
[2020-01-05] MEDS: ACETAMINOPHEN 500 MG TAB PO SCH ×3 (06:29→21:16)
[2020-01-05] MEDS: SODIUM CHLORIDE 0.9% 1000ML 1,000 ML IV SCH (06:33)
[2020-01-05 07:23] LABS: Hematocrit (blood only) 21.3 % (37-47); Mean Corpuscular Hemoglobin 29.4 pg (25-34); Mean Corpuscular Hgb Conc 32.9 g/dL (32-36); Mean Corpuscular Volume 89.5 fL (80-100); Mean Platelet Volume 8.6 fL (7.4-10.4); Platelet Count 168 K/uL (130-400); RDW Coefficient of Variation 13.9 % (11.5-14.5); RDW Standard Deviation 44.9 fL (36.4-46.3); Red Blood Count 2.38 M/uL (4.2-5.4); White Blood Count 8.12 K/uL (4.8-10.8)
[2020-01-05 07:30] LABS: BUN Creatinine Ratio 16.9 (10-20); Calcium 7.1 mg/dl (8.5-10.1); Creatinine Clr Calc Pharmacy 122.9 ml/min; Est GFR (African American) 100.7; Est GFR (Non-African American) 86.9; Potassium 4.4 mmol/L (3.5-5.1)
[2020-01-05] MEDS: TRAMADOL HCL 50 MG TABLET PO PRN ×3 (07:39→23:15)
[2020-01-05] MEDS: CEFAZOLIN 2000MG 2,000 MG/15 ML SYR IV SCH ×3 (07:42→23:06)
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
[2020-01-05] MEDS ORDERED: NON-FORMULARY MEDICATION (Lactobacillus Combination No.4 [Probiotic] 3,000 mmu cells) PO SCH (09:00)
[2020-01-05] MEDS ORDERED: MULTIVITAMIN TAB PO SCH (09:00)
[2020-01-05] MEDS: FERROUS SULFATE 325 MG TAB PO SCH (09:15)
[2020-01-05] MEDS: CALCIUM 600MG + VIT D 400 IU TAB PO SCH ×2 (09:15→20:54)
[2020-01-05] MEDS: DOCUSATE SODIUM 100 MG CAP PO SCH ×2 (09:16→20:53)
[2020-01-05] MEDS: POTASSIUM CHLORIDE 20 MEQ TABCR PO SCH (09:17)
[2020-01-05] MEDS: PREGABALIN 150 MG CAP PO SCH ×2 (09:17→20:53)
[2020-01-05] MEDS: ASPIRIN 81 MG ECTAB PO SCH ×2 (09:17→20:53)
[2020-01-05] MEDS: MULTIVITAMIN TAB PO SCH (09:17)
[2020-01-05] MEDS: FUROSEMIDE 40 MG TAB PO SCH (09:17)
[2020-01-05] MEDS: PANTOprazole 40 MG TAB PO SCH (09:18)
[2020-01-05] MEDS: buPROPion HCl 100 MG TABLET PO SCH ×2 (09:18→20:54)
[2020-01-05] MEDS: ASCORBIC ACID 500 MG TAB PO SCH ×2 (09:19→17:32)
[2020-01-05] MEDS: ZINC SULFATE 220 MG CAPSULE PO SCH (09:19)
[2020-01-05] MEDS: HYDROmorphone HCL 2 MG TAB PO PRN ×2 (09:20→15:36)
[2020-01-05] MEDS: TAPENTADOL HCL ER 50 MG TABCR PO SCH ×2 (10:41→20:53)
--- NOTE | 2020-01-05 18:04 | Operative Report ---
Post Operative Report Pre & Post Diagnosis Operation Date: 01/04/20 07:00 Pre-Op Diagnosis: Periprosthetic supracondylar fracture of femur Post-Op Diagnosis: Periprosthetic supracondylar fracture of femur I identified the patient and participated in the time-out.: Yes Procedure Operation Date: 01/04/20 07:00 Actual Procedures Right Knee irrigation and Drainage(Right) - Peter Lemon MD Intramedullary Basilio Femur Retrograde(Right) - Peter Lemon MD Surgeon Peter Lemon MD Rotary Surface Grinder Erendira, MOLLY Estimated Blood Loss 300 Findings Consistent with Post-Op Diagnosis Operative findings revealed a fairly severely comminuted supracondylar right periprosthetic femur fracture. She did have a dehiscence of the anterior wound down to the extensor mechanism but the knee did not seem to be any involvement of the joint preoperatively. Fluids 1800 cc Specimens None. Drains None. Anesthesia Type General Complications none Disposition Accompanied Patient To Recovery: No Disposition: Recovery Room Indications Patient is a 54-year-old female who is morbidly obese status post gastric bypass surgery who is now a month out from a right total knee replacement. She did quite well is getting around quite well. Earlier today she stumbled over the carpet and fell on her right knee. She dehisced the anterior wound of her knee about 5 cm in length down to the kneecap. Did not expose the implant. She is brought to emergency room where x-rays revealed a severely comminuted distal femur fracture. I felt retrograde nailing was the most reasonable way to attempt fixation of this fracture. The wound was not grossly contaminated. Marita Jay, my physician assistant project engineer, was present for the entire procedure. His presence was essential in critical to operative exposure, prepping and draping, placing the implants, suturing the wound, and placement of the sterile bandage. This patient is a morbidly obese and required several assistance to perform the surgery appropriately. Description of Procedure Operative implants consisted of: 1. Synthes 12 mm x 360 mm retrograde nail. 2. 5 x 78 mm distal interlocking screw. 3. 80 mm helical blade. 4. 5 x 40 mm proximal interlocking screw. 5. Titanium endcap. The patient was taken to the operating room identified and placed on the operating table supine position protectors were properly padded. IV antibiotics arrived by anesthesia team. A general anesthetic was implemented. Due to the COVID precautions we did have to wait 20 minutes before we proceeded. After the 20 minutes I went and scrubbed the patient's leg that extensively with Hibiclens. I then put some sterile gloves on and explored the anterior wound which was about a 5 cm dehiscence. It was down to the extensor mechanism. There was no detectable penetration of the extensor mechanism. I then power irr igated this again with some Hibiclens. A bump was placed underneath the patient's right leg. The right lower extremity was then scrubbed with Hibiclens and then prepped with ChloraPrep and then draped in usual sterile fashion. The right anterior leg wound was then irrigated extensively with 3 L of pulsatile lavage solution. Once this was complete I then extended the incision proximally and distally using the previous incision. A medial parapatellar arthrotomy incision was made. There was a fairly large hematoma and there was no signs of rent or tear in the extensor mechanism previously. The fracture was extremely comminuted. We lined this up under x-ray. I then used a reduction clamp to hold the 2 main fragments together in acceptable alignment. I then placed a guidewire through the intercondylar box of the femoral component and guided this up the femoral canal on x-ray. I then overreamed this with a large reamer. I then remove this guidewire and placed a Gault ball-tipped guidewire up the femoral canal. I then measured for nail length and a 360 mm nail was selected. I then overreamed the guidewire up to a size 13-1/2 and half millimeter increments. A 12 mm meter by 360 mm retrograde nail was then placed. I tried to leave this as distal as possible to allow some fixation with the implant as well as this was a fairly distal and comminuted fracture particularly on the lateral side. I then placed the lateral aiming arm. Stab incision was made and I placed a distal interlocking screw first and then the helical blade in the standard fashion. I did advance the distal interlocking screw and it almost pushed to the bone. I did get better purchase with a helical blade but the lateral cortex was extremely comminuted. I then inserted the end cap to a locked the helical blade and the outrigger device was removed. I then placed the proximal interlocking screw. A stab incision was made after obtaining perfect circles of the proximal interlocking hole. A 5 x 40 mm interlocking screw was placed in the verified fluoroscopically. Once this was complete attention drawn toward closing. All wounds were irrigated with copious amounts of pulsatile lavage solution. I irrigated with an additional 3 L of pulsatile lavage. I then placed about a gram of powdered Vanco at the fracture site. The extensor neck was then closed with #1 PDS suture in a [id number] fashion. I then irrigated the subcutaneous tissues and placed an additional gram of vancomycin in the subcu tissues. The skin was then closed with a combination of #1 Prolene and 3-0 nylon suture. The lateral incision for the interlocking holes was repaired with 3-0 nylon suture. The proximal interlocking hole was was repaired with 3-0 nylon suture. The leg was then cleaned and sterile dressing composed of Xeroform, 4 x 4's, sterile cast padding and Felix bandage followed by a knee immobilizer were applied. Of note, the patient was such that the knee immobilizer had to be taped over the upper thigh. Were able to do this and immobilize it. The patient was then transported to the transport cart. All 9 anesthesia staff left the room. The patient was extubated and left in the room for 20 minutes and then taken to the recovery room in stable condition. Patient tolerated procedure well no complications. I attest to the content of the Intraoperative Record and any orders documented therein. Any exceptions are noted below.
--- NOTE | 2020-01-05 19:01 | Progress Notes ---
DATE: 01/05/2020 SUBJECTIVE: A 54-year-old female postop day 1 from irrigation, debridement and retrograde IM nailing of a very comminuted right periprosthetic femur fracture. She is doing okay. Having quite a bit of pain, but does respond to some of the pain medicines. No chest pain or shortness of breath. Not feeling dizzy or lightheaded. OBJECTIVE: VITAL SIGNS: Temperature 37.4. Vital signs stable. GENERAL: Shows a pleasant, middle-aged female. She is lying in bed, looks quite comfortable despite saying she is in a lot of pain. LUNGS: Clear to auscultation. HEART: Has a regular rate and rhythm. ABDOMEN: Soft, nontender, nondistended. EXTREMITIES: Grossly neurovascularly intact except as follows: Examination of the right leg reveals the knee immobilizer to be in place. Leg is well aligned. She can dorsiflex and plantarflex her foot appropriately. She is neurologically intact. LABORATORY DATA: Hemoglobin is 7.0. Hematocrit 21.3. Electrolytes are stable. ASSESSMENT: A 54-year-old white female postoperative day 1 from irrigation, debridement and retrograde nailing of a periprosthetic femur fracture. She is doing reasonably well. Complaining of quite a bit of pain but looks pretty comfortable. She is neurologically intact. She is anemic, but without symptoms and her vitals are stable. PLAN: 1. DVT prophylaxis including thigh-high TEDs, SCDs, and aspirin twice a day. 2. PT/OT. She is touch weightbearing-only on the right leg. Knee immobilizer pretty much all the time. We are looking to get her a custom brace due to her large thighs. 3. Pain control, seems to be doing okay with current pain regimen. We will continue with Tylenol, Toradol, and Dilaudid. 4. Disposition: She is hoping to be discharged to home hopefully with some home health. We will see how she does with pain control over the next day or two. We do need to get her a custom brace as well.
[2020-01-05] MEDS: TRAZODONE HCL 100 MG TAB PO SCH (20:53)
[2020-01-05] MEDS: FLUOXETINE HCL 20 MG CAP PO SCH (20:54)
[2020-01-05] MEDS: SENNA 8.6 MG TAB PO SCH (20:54)
[2020-01-06] MEDS: KETOROLAC 30 MG/ML VIAL IV SCH ×3 (05:00→16:01)
[2020-01-06] MEDS: ACETAMINOPHEN 500 MG TAB PO SCH ×3 (05:01→21:39)
[2020-01-06] MEDS: LEVOTHYROXINE SODIUM 175 MCG TABLET PO SCH (05:01)
[2020-01-06] MEDS: CEFAZOLIN 2000MG 2,000 MG/15 ML SYR IV SCH ×3 (07:47→23:25)
[2020-01-06] MEDS: TRAMADOL HCL 50 MG TABLET PO PRN ×2 (07:47→20:32)
[2020-01-06 07:56] LABS: BUN Creatinine Ratio 21.7 (10-20); Calcium 7.4 mg/dl (8.5-10.1); Creatinine Clr Calc Pharmacy 121.5 ml/min; Est GFR (Non-African American) 86.3; Potassium 4.3 mmol/L (3.5-5.1)
[2020-01-06 08:02] LABS: Hematocrit (blood only) 18.5 % (37-47); Hemoglobin 6.1 g/dL (12.0-16.0); Mean Corpuscular Hemoglobin 29.6 pg (25-34); Mean Corpuscular Volume 89.8 fL (80-100); Mean Platelet Volume 8.9 fL (7.4-10.4); Platelet Count 141 K/uL (130-400); RDW Coefficient of Variation 14.8 % (11.5-14.5); RDW Standard Deviation 48.1 fL (36.4-46.3); Red Blood Count 2.06 M/uL (4.2-5.4); White Blood Count 6.32 K/uL (4.8-10.8)
[2020-01-06] MEDS: buPROPion HCl 100 MG TABLET PO SCH ×2 (08:25→20:34)
[2020-01-06] MEDS: PREGABALIN 150 MG CAP PO SCH ×2 (08:25→20:33)
[2020-01-06] MEDS: TAPENTADOL HCL ER 50 MG TABCR PO SCH ×2 (08:25→20:33)
[2020-01-06] MEDS: ZINC SULFATE 220 MG CAPSULE PO SCH (08:26)
[2020-01-06] MEDS: ASCORBIC ACID 500 MG TAB PO SCH ×2 (08:26→16:02)
[2020-01-06] MEDS: FUROSEMIDE 40 MG TAB PO SCH (08:27)
[2020-01-06] MEDS: DOCUSATE SODIUM 100 MG CAP PO SCH ×2 (08:28→20:35)
[2020-01-06] MEDS: ASPIRIN 81 MG ECTAB PO SCH ×2 (08:28→20:34)
[2020-01-06] MEDS: POTASSIUM CHLORIDE 20 MEQ TABCR PO SCH (08:28)
[2020-01-06] MEDS: FERROUS SULFATE 325 MG TAB PO SCH (08:28)
[2020-01-06] MEDS: CALCIUM 600MG + VIT D 400 IU TAB PO SCH ×2 (08:29→20:36)
[2020-01-06] MEDS: MULTIVITAMIN TAB PO SCH (08:29)
[2020-01-06] MEDS: PANTOprazole 40 MG TAB PO SCH (08:29)
[2020-01-06] MEDS ORDERED: SODIUM CHLORIDE 0.9% 250 ML IV PRN (09:33)
[2020-01-06] MEDS: HYDROmorphone HCL 2 MG TAB PO PRN ×3 (11:34→21:39)
--- NOTE | 2020-01-06 16:36 | Progress Notes ---
DATE: 01/06/2020 SUBJECTIVE: A 55-year-old white female postop day 2 from I and D and retrograde IM nailing of a comminuted periprosthetic femur fracture. She is doing okay. Still having quite a bit of pain. She was having trouble mobilizing, I just gave her some blood today. No chest pain or shortness of breath. OBJECTIVE: VITAL SIGNS: Temperature 37.2. Vital signs stable. GENERAL: Shows a pleasant, middle-aged female. She is sitting up in bed, looks pretty comfortable. EXTREMITIES: Examination of the right leg reveals the knee immobilizer to be in place. Dressing is clean, dry and intact. She can dorsiflex and plantarflex her foot appropriately. She is neurologically intact. LABORATORY DATA: Hemoglobin this morning was 6.1. Hematocrit 18.5. Electrolytes are stable. ASSESSMENT: A 55-year-old white female postoperative day 2 from irrigation and debridement of open leg laceration and retrograde intramedullary nailing of a periprosthetic femur fracture. She is pretty anemic and we did give her 2 units of blood today as she has been having trouble doing therapy. She is considering whether to go to rehabilitation and trying to make that decision tomorrow. Her pain seems to be reasonably well controlled clinically despite her complaints of significant pain. PLAN: 1. DVT prophylaxis including thigh-high TEDs, SCDs, and aspirin twice a day. 2. PT/OT. She is nonweightbearing/touch weightbearing in the right leg. She needs to wear a knee immobilizer at all times. We are having a custom brace for her leg, which will hopefully arrive tomorrow. 3. Disposition: She is trying to decide whether to go home or rehab. She is very large. The patient is having difficulty with toe touch weightbearing. My sense is that she is going to need some type of assistance in rehab or [facility] facility stay. We will see how she is doing tomorrow.
--- NOTE | 2020-01-06 16:43 | Electrocardiogram Report ---
Test Reason : Blood Pressure : / mmHG Vent. Rate : 061 BPM Atrial Rate : 061 BPM P-R Int : 234 ms QRS Dur : 090 ms QT Int : 416 ms P-R-T Axes : -12 040 038 degrees QTc Int : 418 ms Sinus rhythm with 1st degree A-V block with Premature atrial complexes Otherwise normal ECG When compared with ECG of 28-OCT-2019 11:36, No significant change was found Confirmed by Osiel Akers ([id number]) on 01/06/2020 4:43:18 PM Referred By: REFERRED SELF Confirmed By:Osiel Akers
[2020-01-06] MEDS: FLUOXETINE HCL 20 MG CAP PO SCH (20:33)
[2020-01-06] MEDS: TRAZODONE HCL 100 MG TAB PO SCH (20:35)
[2020-01-06] MEDS: SENNA 8.6 MG TAB PO SCH (20:36)
[2020-01-07] MEDS: HYDROmorphone HCL 2 MG TAB PO PRN ×4 (01:32→21:48)
[2020-01-07] MEDS: LEVOTHYROXINE SODIUM 175 MCG TABLET PO SCH (05:42)
[2020-01-07] MEDS: ACETAMINOPHEN 500 MG TAB PO SCH ×3 (05:42→21:48)
[2020-01-07 05:57] LABS: Hematocrit (blood only) 22.6 % (37-47); Hemoglobin 7.5 g/dL (12.0-16.0)
[2020-01-07] MEDS: CEFAZOLIN 2000MG 2,000 MG/15 ML SYR IV SCH ×2 (07:51→15:28)
[2020-01-07] MEDS: ASCORBIC ACID 500 MG TAB PO SCH ×2 (07:52→16:49)
[2020-01-07] MEDS: PREGABALIN 150 MG CAP PO SCH ×2 (07:53→20:31)
[2020-01-07] MEDS: POTASSIUM CHLORIDE 20 MEQ TABCR PO SCH (07:54)
[2020-01-07] MEDS: MULTIVITAMIN TAB PO SCH (07:54)
[2020-01-07] MEDS: PANTOprazole 40 MG TAB PO SCH (07:54)
[2020-01-07] MEDS: TAPENTADOL HCL ER 50 MG TABCR PO SCH ×2 (07:55→20:31)
[2020-01-07] MEDS: ASPIRIN 81 MG ECTAB PO SCH ×2 (07:55→20:26)
[2020-01-07] MEDS: buPROPion HCl 100 MG TABLET PO SCH ×2 (07:55→20:28)
[2020-01-07] MEDS: ZINC SULFATE 220 MG CAPSULE PO SCH (07:55)
[2020-01-07] MEDS: CALCIUM 600MG + VIT D 400 IU TAB PO SCH ×2 (07:56→20:25)
[2020-01-07] MEDS: FERROUS SULFATE 325 MG TAB PO SCH (07:56)
[2020-01-07] MEDS: DOCUSATE SODIUM 100 MG CAP PO SCH ×2 (07:57→20:26)
--- NOTE | 2020-01-07 08:41 | Progress Notes ---
DATE: 01/07/2020 SUBJECTIVE: A 55-year-old white female postop day 3 from I&D and IM nailing of a right periprosthetic femur fracture. She is doing okay. Still having a lot of pain. No chest pain or shortness of breath. Not feeling dizzy or lightheaded. OBJECTIVE: VITAL SIGNS: Temperature 36.7. Vital signs stable. GENERAL: Shows a pleasant obese middle-aged female. I had to wake her this morning. She looks pretty comfortable. EXTREMITIES: Examination of the right leg reveals the leg to be well aligned. Dressing is clean, dry and intact. She does have just a little bit of bloody drainage. She can dorsiflex and plantarflex her foot appropriately. LABORATORY DATA: Hemoglobin 7.5. Hematocrit 22.6. ASSESSMENT: A 55-year-old white female postop day 2 from a right knee I&D and retrograde IM nailing, doing reasonably well. She is still anemic, which is to be expected and asymptomatic currently. She got 2 units of blood yesterday. PLAN: 1. DVT prophylaxis including thigh-high TEDs, SCDs, and aspirin twice a day. 2. PT/OT. She is touch weightbearing right leg only. No knee range of motion. Knee immobilizer. We will hopefully get her a custom brace today. 3. Anemia. Continue iron supplementation. Hemoglobin looks okay this morning. She can tolerate a fairly low hemoglobin based on her health. 4. Disposition: She is looking for a rehab stay. She is having a lot of trouble mobilizing based on her size and the severity of her injury. We will continue to work on this today.
[2020-01-07] MEDS: FUROSEMIDE 40 MG TAB PO SCH (09:04)
[2020-01-07] MEDS: TRAMADOL HCL 50 MG TABLET PO PRN ×3 (09:05→23:32)
[2020-01-07] MEDS: TRAZODONE HCL 100 MG TAB PO SCH (20:26)
[2020-01-07] MEDS: FLUOXETINE HCL 20 MG CAP PO SCH (20:28)
[2020-01-07] MEDS: SENNA 8.6 MG TAB PO SCH (20:28)
[2020-01-08 06:19] LABS: Hematocrit (blood only) 22.5 % (37-47); Hemoglobin 7.2 g/dL (12.0-16.0)
[2020-01-08] MEDS: LEVOTHYROXINE SODIUM 175 MCG TABLET PO SCH (06:22)
[2020-01-08] MEDS: TRAMADOL HCL 50 MG TABLET PO PRN ×2 (06:22→13:30)
[2020-01-08] MEDS: ACETAMINOPHEN 500 MG TAB PO SCH ×2 (06:22→13:28)
--- NOTE | 2020-01-08 07:42 | Progress Notes ---
DATE: 01/08/2020 SUBJECTIVE: A 55-year-old white female postop day 4 from I and D and IM nailing of a right periprosthetic femur fracture. She is doing a little bit better this morning. Still pretty painful. No chest pain or shortness of breath. Not feeling dizzy or lightheaded. OBJECTIVE: VITAL SIGNS: Temperature 37.2. Vital signs stable. GENERAL: Shows a pleasant, middle-aged female. She is lying in bed, looks comfortable. EXTREMITIES: Examination of the right leg reveals the leg to be well aligned. Dressing is clean, dry and intact. She can dorsiflex and plantarflex her foot appropriately. LABORATORY DATA: Hemoglobin is 7.2 and hematocrit 22.5, which is stable. ASSESSMENT: A 55-year-old white female postop day 4 from I and D and IM nailing of a periprosthetic femur fracture. She seems pretty stable. Hemoglobin and hematocrit are stable. She has got some chronic underlying anemia. PLAN: 1. DVT prophylaxis including thigh-high TEDs, SCDs, and aspirin twice a day. 2. PT/OT. Toe-touch Weightbearing only. No knee ROMl Brace at all times. 3. Pain control, doing okay with current pain regimen. 4. Antibiotics. We will continue on some antibiotics for 2 weeks until I see her back. 5. Disposition: She is hoping to be discharged to a rehab facility. She is going to get her a brace hopefully today and discharged later. ROMAN
[2020-01-08] MEDS: HYDROmorphone HCL 2 MG TAB PO PRN (07:59)
[2020-01-08] MEDS: ASPIRIN 81 MG ECTAB PO SCH (08:01)
[2020-01-08] MEDS: FUROSEMIDE 40 MG TAB PO SCH (08:02)
[2020-01-08] MEDS: PANTOprazole 40 MG TAB PO SCH (08:02)
[2020-01-08] MEDS: MULTIVITAMIN TAB PO SCH (08:02)
[2020-01-08] MEDS: ZINC SULFATE 220 MG CAPSULE PO SCH (08:03)
[2020-01-08] MEDS: FERROUS SULFATE 325 MG TAB PO SCH (08:03)
[2020-01-08] MEDS: ASCORBIC ACID 500 MG TAB PO SCH (08:03)
[2020-01-08] MEDS: CALCIUM 600MG + VIT D 400 IU TAB PO SCH (08:04)
[2020-01-08] MEDS: buPROPion HCl 100 MG TABLET PO SCH (08:04)
[2020-01-08] MEDS: POTASSIUM CHLORIDE 20 MEQ TABCR PO SCH (08:04)
[2020-01-08] MEDS: DOCUSATE SODIUM 100 MG CAP PO SCH (08:05)
[2020-01-08] MEDS: TAPENTADOL HCL ER 50 MG TABCR PO SCH (08:24)
[2020-01-08] MEDS: PREGABALIN 150 MG CAP PO SCH (08:24)
[2020-01-08] MEDS: cephALEXin 500 MG CAP PO SCH ×2 (08:24→13:28)
[2020-01-11] MEDS ORDERED: ERGOCALCIFEROL 50,000 UNITS CAP PO SCH (09:00)
--- NOTE | 2020-01-15 17:47 | Discharge Summary ---
Date of Service January 15, 2020 Admission HPI Per Admitting Provider 54 year old female about 1 month s/p right TKA. She was doing well. She did have some superficial dehiscence just over a week ago and we placed her on some keflex. That healed fine she said. This morning she was walking at her daughters house and tripped on a rug, falling, and landing on her knee. She had an open wound and was unable to get up or ambulate. She was brought to the ER by EMS, xrays obtained, and she was found to have a distal femur fx. Admission Exam (Per Admitting) Constitutional Well documented in the admission H & P Discharge Data Consultations 01/04/20 14:29 ED Decision to Admit Stat 01/04/20 21:13 Consult Case Management - Discharge Planning Routine Procedures Performed Operation Date: 01/04/20 07:00 Actual Procedures s Right Knee Incision and Drainage(Right) - Peter Lemon MD p Intramedullary Basilio Femur Retrograde(Right) - Peter Lemon MD Hospital Course (1) Soni-prosthetic femoral shaft fracture: This patient is a 55 y/o female admitted on 01/04/20 with a periprosthetic femur fracture. She underwent I and D, IM nailing of the right femur fracture on 01/04/20. She tolerated the procedure well and there were no complications. Transferred to the PACU post op and later to the orthopedic floor for further care. She was given antibiotic prophylaxis. She was also given FREIDA stockings, SCDs, and aspirin for DVT prophylaxis. Hemoglobin, hematocrit, and vital signs were monitored during her hospital stay and remained stable. She was transfused 2 units of PRBC's. There were no complications during their hospital stay. By post op day #4 the patient was tolerating a regular diet, pain was reasonably controlled with oral pain medicine, and she was participating in physical therapy. On post op day #24the patient was discharged to rehab facility. She was given printed discharge instructions including prescriptions for extra strength tylenol, aspirin, keflex and hydromorphone. She is toe touch only on the right side. Continue knee immobilizer and no range of motion of her knee. Continue FREIDA stockings. Follow up approximately 2 weeks post op or sooner if there are problems or concerns. Coding Level of Care Code None Diagnoses Soni-prosthetic femoral shaft fracture M97.8XXA; Z96.649
== END 2020-01-08 16:01 | DRG 481 ==
LOC: ED 11:56 → OR 14:54 → 3E 19:18

== ENCOUNTER 2021-01-25 10:23 | Inpatient (IN) ==
[2021-01-25] MEDS ORDERED: cefTRIAXone SODIUM 1,000 MG/50 ML BAG IV STA (10:39)
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
[2021-01-25 11:15] LABS: Hematocrit (blood only) 33.9 % (37-47); Hemoglobin 11.5 g/dL (12.0-16.0); Mean Corpuscular Hemoglobin 30.6 pg (25-34); Mean Corpuscular Hgb Conc 33.9 g/dL (32-36); Mean Corpuscular Volume 90.2 fL (80-100); Platelet Count 267 K/uL (130-400); RDW Coefficient of Variation 13.6 % (11.5-14.5); RDW Standard Deviation 44.7 fL (36.4-46.3); Red Blood Count 3.76 M/uL (4.2-5.4); White Blood Count 11.23 K/uL (4.8-10.8)
[2021-01-25 11:25] LABS: INR 1.1 (0.9-1.1)
[2021-01-25 11:28] LABS: Appearance Urine Clear (Clear); Bacteria Urine Automated Negative (Negative); Bilirubin Urine Negative (Negative); Blood Urine 1+ (Negative); Cast Urine Automated 0 /lpf (0-5); Color Urine Yellow; Glucose Urine UA Negative (Negative); Ketones Urine Negative (Negative); Leukocyte Esterase Urine Negative (Negative); Nitrite Urine Negative (Negative); Protein Urine Negative (Negative); RBC Urine Automated 0-4 /hpf (0-4); Specific Gravity Urine 1.005 (1.000-1.030); Urobilinogen Urine Negative (Negative); WBC Urine Automated 0 /hpf (0-5); pH Urine 6.5 (4.5-7.5)
[2021-01-25 11:31] LABS: BUN Creatinine Ratio 18.7 (10-20); C Reactive Protein 14.1 mg/dl (0-0.29); Calcium 8.5 mg/dl (8.5-10.1); Creatinine Clr Calc Pharmacy 130.9 ml/min; Est GFR (Non-African American) 91.4 ml/min; Potassium 3.6 mmol/L (3.5-5.1)
[2021-01-25 11:33] LABS: Basophils # (auto) 0.03 K/uL (0-0.2); Basophils % (auto) 0.3 %; Eosinophils # (auto) 0.03 K/uL (0-0.5); Eosinophils % (auto) 0.3 %; Immature Granulocytes # (auto) 0.02 K/uL (0.00-0.02); Immature Granulocytes % (auto) 0.2 %; Lymphocytes # (auto) 1.37 K/uL (1.2-3.4); Lymphocytes % (auto) 12.2 %; Monocytes # (auto) 1.19 K/uL (0.11-0.59); Monocytes % (auto) 10.6 %; Neutrophils # (auto) 8.59 K/uL (1.4-6.5); Neutrophils % (auto) 76.4 %
[2021-01-25 11:34] LABS: Albumin Globulin Ratio 0.7 (0.9-2); Bilirubin,Total 0.4 mg/dl (0.2-1); Globulin 4.1 gm/dl (2.5-4.0); Total Protein 7.1 gm/dl (6.4-8.2)
[2021-01-25 11:41] LABS: RBC Morphology Unremarkable
[2021-01-25 12:02] LABS: Procalcitonin < 0.05 ng/ml (0-0.5)
[2021-01-25 12:08] LABS: Lyme Ab IgG w/WB Rflx Negative (Negative); Lyme Ab IgM w/WB Rflx Negative (Negative)
--- NOTE | 2021-01-25 12:10 | Ultrasound Report ---
US venous doppler LE LT HISTORY: 56 years-old Female swelling acute pain and swelling of the left lower extremity COMPARISON: 12/16/2018 TECHNIQUE: Multiple real-time sonographic images of the left lower extremity deep venous structures w ere obtained assessing grayscale appearance, color and spectral flow FINDINGS: Normal flow, compressibility, phasicity and augmentation. IMPRESSION: No sonographic evidence of deep venous thrombosis. ACT 112: Negative or not required by law. The above report was generated using voice recognition software. It may contain grammatical, syntax o r spelling errors. Electronically signed by: Prakash Enriquez M.D. 01/25/2021 12:09 PM
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
[2021-01-25] MEDS ORDERED: OPTIRAY 320 125ml IV ONE (14:58)
[2021-01-25] MEDS ORDERED: MELOXICAM 7.5 MG TAB PO SCH (15:19)
[2021-01-25] MEDS ORDERED: SODIUM CHLORIDE 0.9% 1000ML 500 ML IV ONE (15:19)
[2021-01-25] MEDS ORDERED: hydrOXYzine HCl 25 MG TAB PO PRN (15:19)
[2021-01-25] MEDS ORDERED: ONDANSETRON INJ 2 MG/ML 2 ML VIAL IV PRN (15:19)
[2021-01-25] MEDS ORDERED: VANCOMYCIN CONSULT ACTIVE PRN (15:19)
[2021-01-25] MEDS ORDERED: VANCOMYCIN HCL 1,000 MG in SODIUM CHLORIDE 0.9% 250 ML IV SCH (15:19)
--- NOTE | 2021-01-25 15:28 | CT Scan Report ---
CT knee LT w con HISTORY: 56 years-old Female Cellulitis, s/p TKA acute pain and swelling of the left knee with arthr oplasty COMPARISON: Knee radiographs 11/16/2019 TECHNIQUE: Multiple axial CT images of the left knee were obtained following the intravenous ministra tion of contrast. Coronal and sagittal reformatted images were obtained from the axial data set and w ere submitted for review. A dose lowering technique was used consistent with the principals of FELIPE. FINDINGS: Lower extremity varices. The study is limited secondary to body habitus and streak artifact from tota l joint arthroplasty with patellar resurfacing. No evidence of hardware fracture or loosening. The mi neralized appearance of the bones. 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 Unchanged lateral tilt of the patella within the trochlea. No osseous erosions identif ied. Moderate size joint effusion with synovial thickening. Mild circumferential subcutaneous edema of the calf is most pronounced posteriorly. This is partially imaged. Moderate associated posterior skin th ickening. No discrete fluid collection. Mild nonspecific lateral subcutaneous edema of the distal thi gh. IMPRESSION: 1. Total joint arthroplasty with patellar resurfacing. Artifact from the hardware limits the study. 2. No acute fracture or malalignment identified. 3. Moderate joint effusion. 4. Nonspecific subcutaneous edema of the lower leg with posterior skin thickening. Venous stasis, leyla lulitis or lymphedema considered. 5. Lower extremity varicosities. ACT 112: Negative or not required by law. The above report was generated using voice recognition software. It may contain grammatical, syntax o r spelling errors. Electronically signed by: Prakash Enriquez M.D. 01/25/2021 3:27 PM
[2021-01-25] MEDS ORDERED: VANCOMYCIN HCL 1,750 MG in SODIUM CHLORIDE 0.9% 500 ML IV ONE (15:30)
[2021-01-25] MEDS ORDERED: cefTRIAXone SODIUM 1,000 MG in DEXTROSE 5% 50 ML IV ONE (15:45)
--- NOTE | 2021-01-25 15:53 | Pharmacy Report ---
Pharmacy Vanc AUC Short Note - Date of Service January 25, 2021 - Assessment & Plan Assessment 56 year old F receiving vancomycin and ceftriaxone for treatment of LLE cellulitis and possible UTI. Patient has history of Left TKA in 2019. Blood cultures x 2 ordered and pending. Day # 1 of antimicrobial therapy. Plan Vancomycin * AUC/SAIMA is the preferred PK/PD target for vancomycin * AUC guided dosing is effective and associated with decreased risk of nephrotoxicity compared to traditional trough targets * Maintenance dose of 1500 mg IV q12h ordered to achieve estimated trough level of 16 mcg/mL, which is predicted to achieve target AUC/SAIMA of ~600 mg/L.hr and may be associated with a 12 % risk of nephrotoxicity * Trough level ordered for: 01/27/21 Ceftriaxone * 2 g IV q24h appropriate based on BMI and indication Pharmacy will continue to follow and will adjust dose/frequency as necessary. Thank you.
[2021-01-25] MEDS: traMADol HCL 50 MG TABLET PO PRN ×2 (15:54→22:31)
[2021-01-25] MEDS: ACETAMINOPHEN 325 MG TAB PO PRN ×2 (15:54→22:31)
[2021-01-25] MEDS ORDERED: cefTRIAXone SODIUM 2,000 MG in DEXTROSE 5% 50 ML IV SCH (16:00)
[2021-01-25] MEDS ORDERED: VANCOMYCIN HCL 2,750 MG in SODIUM CHLORIDE 0.9% 500 ML IV ONE (16:00)
[2021-01-25] MEDS ORDERED: SODIUM CHLORIDE 0.9% 500 ML IV ONE (16:30)
[2021-01-25] MEDS ORDERED: Nursing to Pharmacy Communication SCH (16:30)
[2021-01-25] MEDS ORDERED: DULoxetine HCL 60 MG CAP PO ONE (16:45)
[2021-01-25] MEDS ORDERED: PREGABALIN 150 MG CAP PO ONE (16:45)
[2021-01-25] MEDS: buPROPion HCl 100 MG TABLET PO SCH (20:22)
[2021-01-25] MEDS: CALCIUM 600MG + VIT D 400 IU TAB PO SCH (20:23)
[2021-01-25] MEDS: traZODone HCL 100 MG TAB PO SCH (20:23)
[2021-01-25] MEDS: PREGABALIN 150 MG CAP PO SCH (20:23)
[2021-01-26] MEDS: VANCOMYCIN HCL 1,500 MG in SODIUM CHLORIDE 0.9% 500 ML IV SCH ×2 (01:43→13:08)
[2021-01-26] MEDS: traMADol HCL 50 MG TABLET PO PRN ×3 (05:52→19:07)
[2021-01-26] MEDS: LEVOTHYROXINE SODIUM 175 MCG TABLET PO SCH (05:52)
[2021-01-26 07:58] LABS: Hematocrit (blood only) 32.7 % (37-47); Hemoglobin 10.9 g/dL (12.0-16.0); Mean Corpuscular Hemoglobin 30.5 pg (25-34); Mean Corpuscular Hgb Conc 33.3 g/dL (32-36); Mean Corpuscular Volume 91.6 fL (80-100); Mean Platelet Volume 8.7 fL (7.4-10.4); Platelet Count 231 K/uL (130-400); RDW Coefficient of Variation 13.8 % (11.5-14.5); RDW Standard Deviation 46.2 fL (36.4-46.3); Red Blood Count 3.57 M/uL (4.2-5.4); White Blood Count 8.51 K/uL (4.8-10.8)
[2021-01-26] MEDS: ACETAMINOPHEN 325 MG TAB PO PRN ×3 (07:59→17:39)
[2021-01-26] MEDS: MoRPHine SULFATE 2 MG/ML CARP IV PRN ×2 (07:59→15:43)
[2021-01-26] MEDS: FUROSEMIDE 40 MG TAB PO SCH (08:00)
[2021-01-26] MEDS: buPROPion HCl 100 MG TABLET PO SCH ×2 (08:00→21:21)
[2021-01-26] MEDS: MULTIVITAMIN TAB PO SCH (08:01)
[2021-01-26] MEDS: CALCIUM 600MG + VIT D 400 IU TAB PO SCH ×2 (08:01→21:21)
[2021-01-26] MEDS: ZINC SULFATE 220 MG CAPSULE PO SCH (08:01)
[2021-01-26] MEDS: FERROUS SULFATE 325 MG TAB PO SCH (08:01)
[2021-01-26] MEDS: PANTOprazole 40 MG TAB PO SCH (08:02)
[2021-01-26] MEDS: POTASSIUM CHLORIDE CRTAB 20 MEQ TABCR PO SCH (08:02)
[2021-01-26] MEDS: DULoxetine HCL 60 MG CAP PO SCH (08:02)
[2021-01-26] MEDS: PREGABALIN 150 MG CAP PO SCH ×2 (08:07→21:20)
--- NOTE | 2021-01-26 08:08 | Hospitalist Progress Note ---
Date of Service January 26, 2021 Assessment & Plan (1) Cellulitis: Plan: - Failure of outpatient antibiotic treatment with keflex and bactrim, skin outlined with marker and dated, hx of left TKA 2 yrs ago. - Started on IV rocephin at outpatient [facility] on 01/24, continue rocephin IV and vancomycin IV - Follow BCx x 2, WBC 11.23. No area to culture. - ESR 46, CRP 14.1, negative procal - US for DVT is negative - was started on Eliquis on 01/22 for her hx of DVT as outpatient but now finished starter pack. No need to continue. - Negative Lymes and anaplasmosis testing - CT LLE knee - IMPRESSION: 1. Total joint arthroplasty with patellar resurfacing. Artifact from the hardware limits the study. 2. No acute fracture or malalignment identified. 3. Moderate joint effusion. 4. Nonspecific subcutaneous edema of the lower leg with posterior skin thickening. Venous stasis, cellulitis or lymphedema considered. 5. Lower extremity varicosities. WBC down to 8.5K, erythema improved, however patient still quite tender to palpation, difficulty moving joint Left lower extremity elevation, ice packs as needed as well (2) LEENA (obstructive sleep apnea): Plan: - hx of such, will bring machine from home (3) Hypothyroidism: Plan: - Cont levothyroxine 175 mcg daily (4) Depression: Plan: - Continue wellbutrin and Cymbalta (5) Anxiety: Plan: - cont hydroxyzine prn (6) UTI (urinary tract infection): Plan: - Started on bactrim for UTI on 01/24, UA does not appear to be grossly infected, follow culture. Hold PO antibiotics, po as above. Pt does not endorse urinary symptoms currently. (7) Obesity: Plan: - BMI of 47, encourage lifestyle medications after discharge DVT ppx: - teds, scds, heparin subq CODE: Full Dispo: From home, likely to remain in the hospital x 2 days Admission and Anticipated Discharge Date Admission Date: January 25, 2021 Subjective Patient seen for follow-up of left lower extremity cellulitis, febrile this morning Currently sitting up in chair, in no distress No chest pain or shortness of breath no abdominal pain Asking about changing her diet to regular and possible air mattress Erythema of her left lower extremity is decreased however she still has significant tenderness and difficulty bending her knee Review of Systems Review of Systems: All systems reviewed & are unremarkable except as noted in Subjective Physical Exam Physical Exam: General: morbidly obese F in NAD Head: Normocephalic, atraumatic ENT: PERRL, EOMI, mucous membranes moist Chest: Clear to auscultation, on room air, no adventitious breath sounds Cardiac: Regular rate and rhythm, no murmur Abdominal: NABS x 4 quadrants, soft, obese, nondistended, nontender to palpation, no rebound or guarding Extremities: LLE erythema and warmth extending from left ankle to medial thigh, involving scar proximal to the knee, posteriorly does not extend past knee joint (now improved). s/p TKA 2 years ago with separate anterior scar. + Difficulty bending knee further than approx. 20 degrees due to pain. No area of fluctuance or obvious wound/trauma for culture. RLE s/p TKA. Otherwise, normal inspection, no peripheral edema or erythema, calves nontender to palpation Psych: Normal mood and affect Neuro: AAO x 3, speech is clear, no peripheral sensory deficits, moves extremities, as above Results & Data Results & Data ([facility]) Vital Signs (Past 12 Hours) Vital Signs Temp Pulse Resp BP Pulse Ox 01/26/21 07:53 38.6 C H 01/26/21 07:17 36.9 C 83 16 116/70 92 01/25/21 22:42 38.2 C H 89 18 128/72 94 Laboratory Results 01/26/21 01/26/21 01/25/21 Range/Units 07:43 07:43 Unknown WBC 8.51 (4.8-10.8) K/uL RBC 3.57 L (4.2-5.4) M/uL Hgb 10.9 L (12.0-16.0) g/dL Hct 32.7 L (37-47) % MCV 91.6 (80-100) fL MCH 30.5 (25-34) pg MCHC 33.3 (32-36) g/dL RDW Std Deviation 46.2 (36.4-46.3) fL RDW Coeff of Heraclio 13.8 (11.5-14.5) % Plt Count 231 (130-400) K/uL MPV 8.7 (7.4-10.4) fL Immature Gran % (Auto) % Neut % (Auto) % Lymph % (Auto) % Pettis % (Auto) % Eos % (Auto) % Baso % (Auto) % Neut # (Auto) (1.4-6.5) K/uL Lymph # (Auto) (1.2-3.4) K/uL Pettis # (Auto) (0.11-0.59) K/uL Eos # (Auto) (0-0.5) K/uL Baso # (Auto) (0-0.2) K/uL Immature Gran # (Auto) (0.00-0.02) K/uL RBC Morphology ESR (0-30) mm/hr PT (9.0-12.0) Seconds INR (0.9-1.1) Sodium Pending (136-145) mmol/L Potassium Pending (3.5-5.1) mmol/L Chloride Pending (98-107) mmol/L Carbon Dioxide Pending (21-32) mmol/L Anion Gap Pending (3-11) BUN Pending (7-18) mg/dl Creatinine Pending (0.6-1.2) mg/dl Est Cr Clr Drug Dosing Pending ml/min Est GFR ( Amer) Pending ml/min Est GFR (Non-Af Amer) Pending ml/min BUN/Creatinine Ratio Pending (10-20) Glucose Pending (70-99) mg/dl Calcium Pending (8.5-10.1) mg/dl Total Bilirubin Pending (0.2-1) mg/dl AST Pending (15-37) U/L ALT Pending (12-78) U/L Alkaline Phosphatase Pending (45-117) U/L C-Reactive Protein (0-0.29) mg/dl Total Protein Pending (6.4-8.2) gm/dl Albumin Pending (3.4-5.0) gm/dl Globulin Pending (2.5-4.0) gm/dl Albumin/Globulin Ratio Pending (0.9-2) Lipase (73-393) U/L Procalcitonin (0-0.5) ng/ml Urine Color Urine Appearance (Clear) Urine pH (4.5-7.5) Ur Specific [place] (1.000-1.030) Urine Protein (Negative) Urine Glucose (UA) (Negative) Urine Ketones (Negative) Urine Blood (Negative) Urine Nitrite (Negative) Urine Bilirubin (Negative) Urine Urobilinogen (Negative) Ur Leukocyte Esterase (Negative) Urine WBC (Auto) (0-5) /hpf Urine RBC (Auto) (0-4) /hpf U Hyaline Cast (Auto) (0-5) /lpf U Epithel Cells (Auto) (0-5) /lpf Urine Bacteria (Auto) (Negative) Anaplasma Smear A. phagocytophilum DNA Lyme Disease IgG Ab (Negative) Lyme Disease IgM Ab (Negative) COVID-19 Eval Order SARS-CoV-2 (PCR) NEGATIVE (Negative) 01/25/21 01/25/21 01/25/21 Range/Units Unknown Unknown 10:51 WBC (4.8-10.8) K/uL RBC (4.2-5.4) M/uL Hgb (12.0-16.0) g/dL Hct (37-47) % MCV (80-100) fL MCH (25-34) pg MCHC (32-36) g/dL RDW Std Deviation (36.4-46.3) fL RDW Coeff of Heraclio (11.5-14.5) % Plt Count (130-400) K/uL MPV (7.4-10.4) fL Immature Gran % (Auto) % Neut % (Auto) % Lymph % (Auto) % Pettis % (Auto) % Eos % (Auto) % Baso % (Auto) % Neut # (Auto) (1.4-6.5) K/uL Lymph # (Auto) (1.2-3.4) K/uL Pettis # (Auto) (0.11-0.59) K/uL Eos # (Auto) (0-0.5) K/uL Baso # (Auto) (0-0.2) K/uL Immature Gran # (Auto) (0.00-0.02) K/uL RBC Morphology ESR (0-30) mm/hr PT (9.0-12.0) Seconds INR (0.9-1.1) Sodium (136-145) mmol/L Potassium (3.5-5.1) mmol/L Chloride (98-107) mmol/L Carbon Dioxide (21-32) mmol/L Anion Gap (3-11) BUN (7-18) mg/dl Creatinine (0.6-1.2) mg/dl Est Cr Clr Drug Dosing ml/min Est GFR ( Amer) ml/min Est GFR (Non-Af Amer) ml/min BUN/Creatinine Ratio (10-20) Glucose (70-99) mg/dl Calcium (8.5-10.1) mg/dl Total Bilirubin (0.2-1) mg/dl AST (15-37) U/L ALT (12-78) U/L Alkaline Phosphatase (45-117) U/L C-Reactive Protein (0-0.29) mg/dl Total Protein (6.4-8.2) gm/dl Albumin (3.4-5.0) gm/dl Globulin (2.5-4.0) gm/dl Albumin/Globulin Ratio (0.9-2) Lipase (73-393) U/L Procalcitonin (0-0.5) ng/ml Urine Color Yellow Urine Appearance Clear (Clear) Urine pH 6.5 (4.5-7.5) Ur Specific [place] 1.005 (1.000-1.030) Urine Protein Negative (Negative) Urine Glucose (UA) Negative (Negative) Urine Ketones Negative (Negative) Urine Blood 1+ H (Negative) Urine Nitrite Negative (Negative) Urine Bilirubin Negative (Negative) Urine Urobilinogen Negative (Negative) Ur Leukocyte Esterase Negative (Negative) Urine WBC (Auto) 0 (0-5) /hpf Urine RBC (Auto) 0-4 (0-4) /hpf U Hyaline Cast (Auto) 0 (0-5) /lpf U Epithel Cells (Auto) 5-10 H (0-5) /lpf Urine Bacteria (Auto) Negative (Negative) Anaplasma Smear A. phagocytophilum DNA Pending Lyme Disease IgG Ab (Negative) Lyme Disease IgM Ab (Negative) COVID-19 Eval Order Covid19 at [facility] SARS-CoV-2 (PCR) (Negative) 01/25/21 01/25/21 01/25/21 Range/Units 10:51 10:51 10:51 WBC (4.8-10.8) K/uL RBC (4.2-5.4) M/uL Hgb (12.0-16.0) g/dL Hct (37-47) % MCV (80-100) fL MCH (25-34) pg MCHC (32-36) g/dL RDW Std Deviation (36.4-46.3) fL RDW Coeff of Heraclio (11.5-14.5) % Plt Count (130-400) K/uL MPV (7.4-10.4) fL Immature Gran % (Auto) % Neut % (Auto) % Lymph % (Auto) % Pettis % (Auto) % Eos % (Auto) % Baso % (Auto) % Neut # (Auto) (1.4-6.5) K/uL Lymph # (Auto) (1.2-3.4) K/uL Pettis # (Auto) (0.11-0.59) K/uL Eos # (Auto) (0-0.5) K/uL Baso # (Auto) (0-0.2) K/uL Immature Gran # (Auto) (0.00-0.02) K/uL RBC Morphology ESR (0-30) mm/hr PT 11.0 (9.0-12.0) Seconds INR 1.1 (0.9-1.1) Sodium 135 L (136-145) mmol/L Potassium 3.6 (3.5-5.1) mmol/L Chloride 103 (98-107) mmol/L Carbon Dioxide 26 (21-32) mmol/L Anion Gap 6.0 (3-11) BUN 14 (7-18) mg/dl Creatinine 0.73 (0.6-1.2) mg/dl Est Cr Clr Drug Dosing 130.9 ml/min Est GFR ( Amer) 106.0 ml/min Est GFR (Non-Af Amer) 91.4 ml/min BUN/Creatinine Ratio 18.7 (10-20) Glucose 144 H (70-99) mg/dl Calcium 8.5 (8.5-10.1) mg/dl Total Bilirubin 0.4 (0.2-1) mg/dl AST 13 L (15-37) U/L ALT 19 (12-78) U/L Alkaline Phosphatase 104 (45-117) U/L C-Reactive Protein 14.10 H (0-0.29) mg/dl Total Protein 7.1 (6.4-8.2) gm/dl Albumin 3.0 L (3.4-5.0) gm/dl Globulin 4.1 H (2.5-4.0) gm/dl Albumin/Globulin Ratio 0.7 L (0.9-2) Lipase 90 (73-393) U/L Procalcitonin < 0.05 (0-0.5) ng/ml Urine Color Urine Appearance (Clear) Urine pH (4.5-7.5) Ur Specific [place] (1.000-1.030) Urine Protein (Negative) Urine Glucose (UA) (Negative) Urine Ketones (Negative) Urine Blood (Negative) Urine Nitrite (Negative) Urine Bilirubin (Negative) Urine Urobilinogen (Negative) Ur Leukocyte Esterase (Negative) Urine WBC (Auto) (0-5) /hpf Urine RBC (Auto) (0-4) /hpf U Hyaline Cast (Auto) (0-5) /lpf U Epithel Cells (Auto) (0-5) /lpf Urine Bacteria (Auto) (Negative) Anaplasma Smear A. phagocytophilum DNA Lyme Disease IgG Ab Negative (Negative) Lyme Disease IgM Ab Negative (Negative) COVID-19 Eval Order SARS-CoV-2 (PCR) (Negative) 01/25/21 01/25/21 Range/Units 10:51 10:51 WBC 11.23 H (4.8-10.8) K/uL RBC 3.76 L (4.2-5.4) M/uL Hgb 11.5 L (12.0-16.0) g/dL Hct 33.9 L (37-47) % MCV 90.2 (80-100) fL MCH 30.6 (25-34) pg MCHC 33.9 (32-36) g/dL RDW Std Deviation 44.7 (36.4-46.3) fL RDW Coeff of Heraclio 13.6 (11.5-14.5) % Plt Count 267 (130-400) K/uL MPV 9.0 (7.4-10.4) fL Immature Gran % (Auto) 0.2 % Neut % (Auto) 76.4 % Lymph % (Auto) 12.2 % Pettis % (Auto) 10.6 % Eos % (Auto) 0.3 % Baso % (Auto) 0.3 % Neut # (Auto) 8.59 H (1.4-6.5) K/uL Lymph # (Auto) 1.37 (1.2-3.4) K/uL Pettis # (Auto) 1.19 H (0.11-0.59) K/uL Eos # (Auto) 0.03 (0-0.5) K/uL Baso # (Auto) 0.03 (0-0.2) K/uL Immature Gran # (Auto) 0.02 (0.00-0.02) K/uL RBC Morphology Unremarkable ESR 46 H (0-30) mm/hr PT (9.0-12.0) Seconds INR (0.9-1.1) Sodium (136-145) mmol/L Potassium (3.5-5.1) mmol/L Chloride (98-107) mmol/L Carbon Dioxide (21-32) mmol/L Anion Gap (3-11) BUN (7-18) mg/dl Creatinine (0.6-1.2) mg/dl Est Cr Clr Drug Dosing ml/min Est GFR ( Amer) ml/min Est GFR (Non-Af Amer) ml/min BUN/Creatinine Ratio (10-20) Glucose (70-99) mg/dl Calcium (8.5-10.1) mg/dl Total Bilirubin (0.2-1) mg/dl AST (15-37) U/L ALT (12-78) U/L Alkaline Phosphatase (45-117) U/L C-Reactive Protein (0-0.29) mg/dl Total Protein (6.4-8.2) gm/dl Albumin (3.4-5.0) gm/dl Globulin (2.5-4.0) gm/dl Albumin/Globulin Ratio (0.9-2) Lipase (73-393) U/L Procalcitonin (0-0.5) ng/ml Urine Color Urine Appearance (Clear) Urine pH (4.5-7.5) Ur Specific [place] (1.000-1.030) Urine Protein (Negative) Urine Glucose (UA) (Negative) Urine Ketones (Negative) Urine Blood (Negative) Urine Nitrite (Negative) Urine Bilirubin (Negative) Urine Urobilinogen (Negative) Ur Leukocyte Esterase (Negative) Urine WBC (Auto) (0-5) /hpf Urine RBC (Auto) (0-4) /hpf U Hyaline Cast (Auto) (0-5) /lpf U Epithel Cells (Auto) (0-5) /lpf Urine Bacteria (Auto) (Negative) Anaplasma Smear See Comment A. phagocytophilum DNA Lyme Disease IgG Ab (Negative) Lyme Disease IgM Ab (Negative) COVID-19 Eval Order SARS-CoV-2 (PCR) (Negative)
[2021-01-26 08:32] LABS: Albumin Level 2.7 gm/dl (3.4-5.0); BUN Creatinine Ratio 18.2 (10-20); Calcium 7.9 mg/dl (8.5-10.1); Creatinine Clr Calc Pharmacy 169.4 ml/min; Est GFR (Non-African American) 103.5 ml/min; Potassium 3.7 mmol/L (3.5-5.1)
[2021-01-26 08:34] LABS: Albumin Globulin Ratio 0.7 (0.9-2); Bilirubin,Total 0.4 mg/dl (0.2-1); Total Protein 6.7 gm/dl (6.4-8.2)
[2021-01-26] MEDS: cefTRIAXone SODIUM 2,000 MG in DEXTROSE 5% 50 ML IV SCH (12:30)
[2021-01-26] MEDS: HEPARIN SOD 5,000 UNIT/0.5 ML VIAL SQ SCH ×2 (12:58→21:21)
[2021-01-26] MEDS: traZODone HCL 100 MG TAB PO SCH (21:21)
[2021-01-27] MEDS: VANCOMYCIN HCL 1,500 MG in SODIUM CHLORIDE 0.9% 500 ML IV SCH ×2 (01:23→13:36)
[2021-01-27] MEDS: traMADol HCL 50 MG TABLET PO PRN ×3 (02:59→19:13)
--- NOTE | 2021-01-27 05:34 | Electrocardiogram Report ---
Test Reason : Blood Pressure : / mmHG Vent. Rate : 083 BPM Atrial Rate : 083 BPM P-R Int : 214 ms QRS Dur : 092 ms QT Int : 362 ms P-R-T Axes : 001 050 038 degrees QTc Int : 425 ms Sinus rhythm with 1st degree A-V block Otherwise normal ECG When compared with ECG of 04-JAN-2020 12:37, Premature atrial complexes are no longer Present Confirmed by Olu Valadez ([id number]) on 01/27/2021 5:33:51 AM Referred By: REFERRED SELF Confirmed By:Olu Valadez
[2021-01-27] MEDS: LEVOTHYROXINE SODIUM 175 MCG TABLET PO SCH (06:22)
[2021-01-27] MEDS: HEPARIN SOD 5,000 UNIT/0.5 ML VIAL SQ SCH ×2 (06:22→13:36)
[2021-01-27 06:31] LABS: Hematocrit (blood only) 32.1 % (37-47); Hemoglobin 10.5 g/dL (12.0-16.0); Mean Corpuscular Hemoglobin 30.3 pg (25-34); Mean Corpuscular Hgb Conc 32.7 g/dL (32-36); Mean Corpuscular Volume 92.8 fL (80-100); Mean Platelet Volume 9.2 fL (7.4-10.4); Platelet Count 262 K/uL (130-400); RDW Standard Deviation 47.5 fL (36.4-46.3); Red Blood Count 3.46 M/uL (4.2-5.4); White Blood Count 7.28 K/uL (4.8-10.8)
[2021-01-27 07:10] LABS: Albumin Globulin Ratio 0.6 (0.9-2); Albumin Level 2.5 gm/dl (3.4-5.0); BUN Creatinine Ratio 21.9 (10-20); Bilirubin,Total 0.3 mg/dl (0.2-1); Calcium 7.9 mg/dl (8.5-10.1); Creatinine Clr Calc Pharmacy 175.6 ml/min; Est GFR (African American) 121.4 ml/min; Est GFR (Non-African American) 104.8 ml/min; Globulin 4.2 gm/dl (2.5-4.0); Magnesium 2.1 mg/dl (1.8-2.4); Phosphorus 3.1 mg/dl (2.5-4.9); Potassium 3.8 mmol/L (3.5-5.1); Total Protein 6.7 gm/dl (6.4-8.2)
[2021-01-27] MEDS: ZINC SULFATE 220 MG CAPSULE PO SCH (08:49)
[2021-01-27] MEDS: POTASSIUM CHLORIDE CRTAB 20 MEQ TABCR PO SCH (08:50)
[2021-01-27] MEDS: DULoxetine HCL 60 MG CAP PO SCH (08:50)
[2021-01-27] MEDS: FUROSEMIDE 40 MG TAB PO SCH (08:50)
[2021-01-27] MEDS: buPROPion HCl 100 MG TABLET PO SCH ×2 (08:50→21:04)
[2021-01-27] MEDS: PANTOprazole 40 MG TAB PO SCH (08:50)
[2021-01-27] MEDS: MULTIVITAMIN TAB PO SCH (08:50)
[2021-01-27] MEDS: FERROUS SULFATE 325 MG TAB PO SCH (08:50)
[2021-01-27] MEDS: CALCIUM 600MG + VIT D 400 IU TAB PO SCH ×2 (08:51→21:04)
[2021-01-27] MEDS: PREGABALIN 150 MG CAP PO SCH ×2 (08:54→21:04)
[2021-01-27] MEDS: cefTRIAXone SODIUM 2,000 MG in DEXTROSE 5% 50 ML IV SCH (10:35)
[2021-01-27] MEDS: MoRPHine SULFATE 2 MG/ML CARP IV PRN ×2 (11:34→12:58)
--- NOTE | 2021-01-27 12:09 | XRay Report ---
XR knee LT 1 or 2V routine HISTORY: 56 years-old Female knee pain acute pain and swelling of the left knee COMPARISON: CT left knee 01/25/2021 TECHNIQUE: 2 views of the left knee FINDINGS: Total joint arthroplasty and patella resurfacing. No acute fracture or evidence of hardware complicat ion. Moderate joint effusion. Probable enchondroma of the distal femoral diaphysis. Moderate diffuse soft tissue prominence redemonstrated. No osseous erosions. IMPRESSION: 1. Moderate diffuse soft tissue swelling without acute fracture. 2. Moderate joint effusion. 3. Total joint arthroplasty and patella resurfacing. No evidence of hardware complication. ACT 112: Negative or not required by law. The above report was generated using voice recognition software. It may contain grammatical, syntax o r spelling errors. Electronically signed by: Prakash Enriquez M.D. 01/27/2021 12:08 PM
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
[2021-01-27 12:19] LABS: Appearance Synovial Fluid TURBID; Color Synovial Fluid AMBER; Mononuclear WBC Synovial 9.9 %; Polynuclear WBC Synovial 90.1 %; RBC Synovial Fluid (A) 4000 /uL; Source Synovial Fluid KNEE; WBC Synovial Fluid (A) 17712 /ul (0-200)
[2021-01-27] MEDS ORDERED: VANCOMYCIN TROUGH ONE (13:30)
[2021-01-27] MEDS: ACETAMINOPHEN 325 MG TAB PO PRN ×2 (14:53→22:07)
--- NOTE | 2021-01-27 14:53 | Pharmacy Report ---
Pharmacy Vanc AUC Short Note - Date of Service January 27, 2021 - Assessment & Plan Assessment 56 year old F receiving IV VANCOMYCIN + CEFTRIAXONE for treatment of LLE Cellulitis. Cultures negative to date Day # 3 of antimicrobial therapy. Plan Vancomycin * AUC/SAIMA is the preferred PK/PD target for vancomycin * AUC guided dosing is effective and associated with decreased risk of nephrotoxicity compared to traditional trough targets * Trough level = 8.8 mcg/mL * Change to 1250 mg IV every 8 hours * This dose is predicted to achieve target AUC/SAIMA of 400-600 mg/L.hr and may be associated with a 9 % risk of nephrotoxicity * Trough level ordered for: 01/29/21 Ceftriaxone 2g IV Q24H for wt > 80kg Pharmacy will continue to follow and will adjust dose/frequency as necessary. Thank you.
[2021-01-27] MEDS ORDERED: TRIMETHOPRIM/POLYMYXIN B OP ONE (15:42)
[2021-01-27] MEDS ORDERED: DAKIN'S SOLN 0.5% FULL STRENGTH 473ML BTL EXT ONE (16:00)
[2021-01-27] MEDS: traZODone HCL 100 MG TAB PO SCH (21:04)
[2021-01-27] MEDS: VANCOMYCIN HCL 1,250 MG in SODIUM CHLORIDE 0.9% 250 ML IV SCH (22:06)
--- NOTE | 2021-01-27 22:18 | Hospitalist Progress Note ---
Date of Service January 27, 2021 Assessment & Plan (1) Cellulitis: Plan: - Failure of outpatient antibiotic treatment with keflex and bactrim, skin outlined with marker and dated, hx of left TKA 2 yrs ago. - Started on IV rocephin at outpatient [facility] on 01/24, continue rocephin IV and vancomycin IV - Follow BCx x 2, WBC 11.23. No area to culture. - ESR 46, CRP 14.1, negative procal - US for DVT is negative - was started on Eliquis on 01/22 for her hx of DVT as outpatient but now finished starter pack. No need to continue. - Negative Lymes and anaplasmosis testing - CT LLE knee - IMPRESSION: 1. Total joint arthroplasty with patellar resurfacing. Artifact from the hardware limits the study. 2. No acute fracture or malalignment identified. 3. Moderate joint effusion. 4. Nonspecific subcutaneous edema of the lower leg with posterior skin thickening. Venous stasis, cellulitis or lymphedema considered. 5. Lower extremity varicosities. WBC down to 8.5K, erythema improved/resolved, however patient mason tender to palpation, and having difficulty moving joint (left knee) Left lower extremity elevation, ice packs as needed as well Will consult orthopedics for further eval., given hx of TKA (Dr. Lemon) (2) LEENA (obstructive sleep apnea): Plan: - can use home cpap (3) Hypothyroidism: Plan: - Cont levothyroxine 175 mcg daily (4) Depression: Plan: - Continue wellbutrin and Cymbalta (5) Anxiety: Plan: - cont hydroxyzine prn (6) UTI (urinary tract infection): Plan: - Started on bactrim for UTI on 01/24, UA does not appear to be grossly infected, follow culture. Hold PO antibiotics, po as above. Pt does not endorse urinary symptoms currently. (7) Obesity: Plan: - BMI of 47, encourage lifestyle medications after discharge DVT ppx: - teds, scds, heparin subq CODE: Full Dispo: From home, likely to remain in the hospital x 2 days Admission and Anticipated Discharge Date Admission Date: January 25, 2021 Subjective Patient seen for follow-up of left lower extremity cellulitis, febrile yesterday morning Currently sitting up in bed, in no distress No chest pain or shortness of breath no abdominal pain Erythema of her left lower extremity is decreased/resolved however she still has significant tenderness and difficulty bending her knee Review of Systems Review of Systems: All systems reviewed & are unremarkable except as noted in Subjective Physical Exam Physical Exam: General: morbidly obese F in NAD Head: Normocephalic, atraumatic ENT: PERRL, EOMI, mucous membranes moist Chest: Clear to auscultation, on room air, no adventitious breath sounds Cardiac: Regular rate and rhythm, no murmur Abdominal: NABS x 4 quadrants, soft, obese, nondistended, nontender to palpation, no rebound or guarding Extremities: LLE erythema and warmth extending from left ankle to medial thigh, involving scar proximal to the knee (now much improved/resolved). s/p TKA 2 years ago with separate anterior scar. + Difficulty bending knee due to pain. No area of fluctuance or obvious wound/trauma for culture. RLE s/p TKA. Psych: Normal mood and affect Neuro: AAO x 3, speech is clear, no peripheral sensory deficits, moves extremities, as above Results & Data Results & Data ([facility]) Vital Signs (Past 12 Hours) Vital Signs Temp Pulse Resp BP Pulse Ox 01/27/21 14:40 37.4 C 75 16 100/50 L 98 Laboratory Results 01/27/21 01/27/21 01/27/21 Range/Units Unknown Unknown 16:30 WBC (4.8-10.8) K/uL RBC (4.2-5.4) M/uL Hgb (12.0-16.0) g/dL Hct (37-47) % MCV (80-100) fL MCH (25-34) pg MCHC (32-36) g/dL RDW Std Deviation (36.4-46.3) fL RDW Coeff of Heraclio (11.5-14.5) % Plt Count (130-400) K/uL MPV (7.4-10.4) fL Sodium (136-145) mmol/L Potassium (3.5-5.1) mmol/L Chloride (98-107) mmol/L Carbon Dioxide (21-32) mmol/L Anion Gap (3-11) BUN (7-18) mg/dl Creatinine (0.6-1.2) mg/dl Est Cr Clr Drug Dosing ml/min Est GFR ( Amer) ml/min Est GFR (Non-Af Amer) ml/min BUN/Creatinine Ratio (10-20) Glucose (70-99) mg/dl Calcium (8.5-10.1) mg/dl Phosphorus (2.5-4.9) mg/dl Magnesium (1.8-2.4) mg/dl Total Bilirubin (0.2-1) mg/dl AST (15-37) U/L ALT (12-78) U/L Alkaline Phosphatase (45-117) U/L Total Protein (6.4-8.2) gm/dl Albumin (3.4-5.0) gm/dl Globulin (2.5-4.0) gm/dl Albumin/Globulin Ratio (0.9-2) Fluid Comment Synovial Source KNEE Synovial Color LOY Synovial Appearance TURBID Synovial WBC 71786 H (0-200) /ul Synovial RBC 4000 /uL Synovial Polynuclear % 90.1 % Synovial Mononuclear % 9.9 % Synovial Crystals Vancomycin Trough (See Comment) mcg/ml Blood Type O Positive Antibody Screen NEGATIVE 01/27/21 01/27/21 01/27/21 Range/Units 13:20 05:27 05:27 WBC 7.28 (4.8-10.8) K/uL RBC 3.46 L (4.2-5.4) M/uL Hgb 10.5 L (12.0-16.0) g/dL Hct 32.1 L (37-47) % MCV 92.8 (80-100) fL MCH 30.3 (25-34) pg MCHC 32.7 (32-36) g/dL RDW Std Deviation 47.5 H (36.4-46.3) fL RDW Coeff of Heraclio 14.0 (11.5-14.5) % Plt Count 262 (130-400) K/uL MPV 9.2 (7.4-10.4) fL Sodium 137 (136-145) mmol/L Potassium 3.8 (3.5-5.1) mmol/L Chloride 104 (98-107) mmol/L Carbon Dioxide 29 (21-32) mmol/L Anion Gap 4.0 (3-11) BUN 12 (7-18) mg/dl Creatinine 0.54 L (0.6-1.2) mg/dl Est Cr Clr Drug Dosing 175.6 ml/min Est GFR ( Amer) 121.4 ml/min Est GFR (Non-Af Amer) 104.8 ml/min BUN/Creatinine Ratio 21.9 H (10-20) Glucose 99 (70-99) mg/dl Calcium 7.9 L (8.5-10.1) mg/dl Phosphorus 3.1 (2.5-4.9) mg/dl Magnesium 2.1 (1.8-2.4) mg/dl Total Bilirubin 0.3 (0.2-1) mg/dl AST 15 (15-37) U/L ALT 18 (12-78) U/L Alkaline Phosphatase 103 (45-117) U/L Total Protein 6.7 (6.4-8.2) gm/dl Albumin 2.5 L (3.4-5.0) gm/dl Globulin 4.2 H (2.5-4.0) gm/dl Albumin/Globulin Ratio 0.6 L (0.9-2) Fluid Comment Synovial Source Synovial Color Synovial Appearance Synovial WBC (0-200) /ul Synovial RBC /uL Synovial Polynuclear % % Synovial Mononuclear % % Synovial Crystals Vancomycin Trough 8.8 (See Comment) mcg/ml Blood Type Antibody Screen Medications Administered Current Inpatient Medications Acetaminophen (Acetaminophen 325 Mg Tab) 650 mg PO Q4H PRN PRN Reason: Moderate Pain Stop: 02/24/21 15:18 Last Admin: 01/27/21 22:07 Dose: 650 mg Documented by: Bupropion HCl (Bupropion Hcl 100 Mg Tablet) 100 mg PO BID [facility] Stop: 02/24/21 20:59 Last Admin: 01/27/21 21:04 Dose: 100 mg Documented by: Duloxetine HCl (Duloxetine Hcl 60 Mg Cap) 60 mg PO QAM [facility] Stop: 02/25/21 08:59 Last Admin: 01/27/21 08:50 Dose: 60 mg Documented by: Ferrous Sulfate (Ferrous Sulfate 325 Mg Tab) 325 mg PO QAM [facility] Stop: 02/25/21 08:59 Last Admin: 01/27/21 08:50 Dose: 325 mg Documented by: Furosemide (Furosemide 40 Mg Tab) 40 mg PO QAM [facility] Stop: 02/25/21 08:59 Last Admin: 01/27/21 08:50 Dose: 40 mg Documented by: Hydroxyzine HCl (Hydroxyzine Hcl 25 Mg Tab) 25 mg PO TID PRN PRN Reason: Anxiety Stop: 02/24/21 15:18 Ceftriaxone Sodium 2,000 mg/ (Dextrose) 70 mls @ 140 mls/hr IV Q24H [facility]; Protocol Stop: 02/02/21 10:59 Last Infusion: 01/27/21 11:30 Dose: Infused Documented by: Vancomycin HCl 1,250 mg/ (Sodium Chloride) 275 mls @ 200 mls/hr IV Q8H [facility] Stop: 02/03/21 21:59 Last Admin: 01/27/21 22:06 Dose: 200 mls/hr Documented by: Levothyroxine Sodium (Levothyroxine Sodium 175 Mcg Tablet) 175 mcg PO DAILYBB [facility] Stop: 02/25/21 06:29 Last Admin: 01/27/21 06:22 Dose: 175 mcg Documented by: Miscellaneous Information (Vancomycin Consult Active) 1 ea N/A UD PRN PRN Reason: Consult Stop: 02/24/21 15:18 Morphine Sulfate (Morphine Sulfate 2 Mg/Ml Carp) 2 mg IV Q4H PRN PRN Reason: Pain Stop: 02/08/21 15:18 Last Admin: 01/27/21 12:58 Dose: 2 mg Documented by: Multivitamins (Multivitamin Tab) [facility] [place]: 02/25/21 08:59 Last Admin: 01/27/21 08:50 Dose: 1 tab Documented by: Multivitamins/Minerals (Calcium 600mg + Vit D 400 Iu Tab) 1 tab PO BID [facility] Stop: 02/24/21 20:59 Last Admin: 01/27/21 21:04 Dose: 1 tab Documented by: Ondansetron HCl (Ondansetron Inj 2 Mg/Ml 2 Ml Vial) 4 mg IV Q4H PRN PRN Reason: Nausea And Vomiting Stop: 02/24/21 15:18 Pantoprazole Sodium (Pantoprazole 40 Mg Tab) 40 [facility] [place]: 02/25/21 08:59 Last Admin: 01/27/21 08:50 Dose: 40 mg Documented by: Potassium Chloride (Potassium Chloride Crtab 20 Meq Tabcr) 20 meq [facility] [place] Stop: 02/25/21 08:59 Last Admin: 01/27/21 08:50 Dose: 20 meq Documented by: Pregabalin (Pregabalin 150 Mg Cap) 150 mg PO BID [facility] Stop: 02/24/21 20:59 Last Admin: 01/27/21 21:04 Dose: 150 mg Documented by: Sodium Hypochlorite (Dakin's Soln 0.5% Full Strength 473ml Btl) 1 appln EXT ONE ONE Stop: 01/28/21 10:01 Tramadol HCl (Tramadol Hcl 50 Mg Tablet) 50 mg PO Q6H PRN PRN Reason: pain Stop: 02/24/21 15:18 Last Admin: 01/27/21 19:13 Dose: 50 mg Documented by: Trazodone HCl (Trazodone Hcl 100 Mg Tab) 100 mg PO HS [facility] Stop: 02/24/21 20:59 Last Admin: 01/27/21 21:04 Dose: 100 mg Documented by: Zinc Sulfate (Zinc Sulfate 220 Mg Capsule) 220 mg PO QAM [facility] Stop: 02/25/21 08:59 Last Admin: 01/27/21 08:49 Dose: 220 mg Documented by:
[2021-01-28] MEDS: LEVOTHYROXINE SODIUM 175 MCG TABLET PO SCH (05:26)
[2021-01-28] MEDS: traMADol HCL 50 MG TABLET PO PRN ×3 (05:26→23:45)
[2021-01-28] MEDS: VANCOMYCIN HCL 1,250 MG in SODIUM CHLORIDE 0.9% 250 ML IV SCH ×3 (05:27→22:42)
[2021-01-28 06:05] LABS: Hematocrit (blood only) 30.5 % (37-47); Hemoglobin 10.1 g/dL (12.0-16.0); Mean Corpuscular Hemoglobin 30.3 pg (25-34); Mean Corpuscular Hgb Conc 33.1 g/dL (32-36); Mean Corpuscular Volume 91.6 fL (80-100); Platelet Count 273 K/uL (130-400); RDW Coefficient of Variation 13.9 % (11.5-14.5); RDW Standard Deviation 46.3 fL (36.4-46.3); Red Blood Count 3.33 M/uL (4.2-5.4)
[2021-01-28 06:49] LABS: BUN Creatinine Ratio 20.2 (10-20); Calcium 8.2 mg/dl (8.5-10.1); Est GFR (African American) 123.7 ml/min; Est GFR (Non-African American) 106.7 ml/min; Phosphorus 3.9 mg/dl (2.5-4.9)
--- NOTE | 2021-01-28 07:21 | Hospitalist Progress Note ---
Date of Service January 28, 2021 Assessment & Plan (1) Cellulitis: Plan: Infection of Left TKA - Failure of outpatient antibiotic treatment with Keflex and Bactrim, skin outlined with marker and dated - hx of Left TKA 2 yrs ago. - Started on IV Rocephin at outpatient [facility] on 01/24, continue Rocephin IV and Vancomycin IV - Follow BCx x 2, WBC 11.23. No area for poss. wound culture. - ESR 46, CRP 14.1, negative procal - US for DVT is negative - was started on Eliquis on 01/22 for her hx of DVT as outpatient but now finished starter pack. No need to continue. - Negative Lymes and anaplasmosis testing - CT LLE knee - IMPRESSION: 1. Total joint arthroplasty with patellar resurfacing. Artifact from the hardware limits the study. 2. No acute fracture or malalignment identified. 3. Moderate joint effusion. 4. Nonspecific subcutaneous edema of the lower leg with posterior skin thickening. Venous stasis, cellulitis or lymphedema considered. 5. Lower extremity varicosities. WBC down to 8.5K, erythema improved/resolved, however patient brusher tender to palpation at knee joint, and having difficulty moving joint (left knee) Left lower extremity elevation, ice packs as needed as well Orthopedics consulted (Dr. Lemon) given hx of TKA - s/p aspiration of left knee - about 60 mL of cloudy yellow fluid obtained, WBC > 17,000 - Culture from the fluid currently pending - suggesting inflammatory fluid and likely a knee joint infection - This all started from cellulitis in the left leg. She has had problems with cellulitis and infection in this leg in the past. - plan for I&D and component retention today (01/28/2021) (Surgeon discussed with the pt success rate probably 40-50%). Pt really wants to avoid any additional surgery and wants to give a trial of the irrigation, debridement and poly exchange and component retention. (2) LEENA (obstructive sleep apnea): Plan: - can use home cpap (3) Hypothyroidism: Plan: - Cont levothyroxine 175 mcg daily (4) Depression: Plan: - Continue wellbutrin and Cymbalta (5) Anxiety: Plan: - cont hydroxyzine prn (6) UTI (urinary tract infection): Plan: - Started on bactrim for UTI on 01/24, UA does not appear to be grossly infected, follow culture. Hold PO antibiotics, po as above. Pt does not endorse urinary symptoms currently. (7) Obesity: Plan: - BMI of 47, encourage lifestyle medications after discharge DVT ppx: - teds, scds, heparin subq CODE: Full Dispo: From home, likely to remain in the hospital x 2 days Admission and Anticipated Discharge Date Admission Date: January 25, 2021 Subjective Patient seen for follow-up of left lower extremity cellulitis, possible infection of left TKA Currently sitting up in bed, in no distress No chest pain or shortness of breath no abdominal pain Erythema of her left lower extremity has resolved however she still has tenderness and difficulty bending her knee Seen by orthopedics yesterday, concern for infection of left TKA, plan for I&D today Review of Systems Review of Systems: All systems reviewed & are unremarkable except as noted in Subjective Physical Exam Physical Exam: General: morbidly obese F in NAD Head: Normocephalic, atraumatic ENT: PERRL, EOMI, mucous membranes moist Chest: Clear to auscultation, on room air, no adventitious breath sounds Cardiac: Regular rate and rhythm, no murmur Abdominal: NABS x 4 quadrants, soft, obese, nondistended, nontender to palpation, no rebound or guarding Extremities: LLE erythema and warmth initially extending from left ankle to medial thigh, involving scar proximal to the knee (now resolved). s/p TKA 2 years ago with separate anterior scar. + Difficulty bending knee due to pain. + induration at L knee. RLE s/p TKA, otherwise RLE unremarkable. Psych: Normal mood and affect Neuro: AAO x 3, speech is clear, no peripheral sensory deficits, moves extremities, as above Results & Data Results & Data ([facility]) Vital Signs (Past 12 Hours) Vital Signs Temp Pulse Resp BP Pulse Ox 01/28/21 06:55 36.8 C 79 16 111/70 95 01/27/21 23:31 36.9 C 75 18 116/67 98 Laboratory Results 01/28/21 01/28/21 01/28/21 Range/Units 07:10 05:54 05:54 WBC 6.50 (4.8-10.8) K/uL RBC 3.33 L (4.2-5.4) M/uL Hgb 10.1 L (12.0-16.0) g/dL Hct 30.5 L (37-47) % MCV 91.6 (80-100) fL MCH 30.3 (25-34) pg MCHC 33.1 (32-36) g/dL RDW Std Deviation 46.3 (36.4-46.3) fL RDW Coeff of Heraclio 13.9 (11.5-14.5) % Plt Count 273 (130-400) K/uL MPV 9.0 (7.4-10.4) fL Sodium 139 (136-145) mmol/L Potassium 3.9 (3.5-5.1) mmol/L Chloride 107 (98-107) mmol/L Carbon Dioxide 28 (21-32) mmol/L Anion Gap 4.0 (3-11) BUN 10 (7-18) mg/dl Creatinine 0.51 L (0.6-1.2) mg/dl Est Cr Clr Drug Dosing 186.0 ml/min Est GFR ( Amer) 123.7 ml/min Est GFR (Non-Af Amer) 106.7 ml/min BUN/Creatinine Ratio 20.2 H (10-20) Glucose 100 H (70-99) mg/dl Calcium 8.2 L (8.5-10.1) mg/dl Phosphorus 3.9 (2.5-4.9) mg/dl Magnesium 2.2 (1.8-2.4) mg/dl Fluid Comment Synovial Source Synovial Color Synovial Appearance Synovial WBC (0-200) /ul Synovial RBC /uL Synovial Polynuclear % % Synovial Mononuclear % % Synovial Crystals Vancomycin Trough (See Comment) mcg/ml Blood Type Antibody Screen 01/27/21 01/27/21 01/27/21 Range/Units Unknown Unknown 16:30 WBC (4.8-10.8) K/uL RBC (4.2-5.4) M/uL Hgb (12.0-16.0) g/dL Hct (37-47) % MCV (80-100) fL MCH (25-34) pg MCHC (32-36) g/dL RDW Std Deviation (36.4-46.3) fL RDW Coeff of Heraclio (11.5-14.5) % Plt Count (130-400) K/uL MPV (7.4-10.4) fL Sodium (136-145) mmol/L Potassium (3.5-5.1) mmol/L Chloride (98-107) mmol/L Carbon Dioxide (21-32) mmol/L Anion Gap (3-11) BUN (7-18) mg/dl Creatinine (0.6-1.2) mg/dl Est Cr Clr Drug Dosing ml/min Est GFR ( Amer) ml/min Est GFR (Non-Af Amer) ml/min BUN/Creatinine Ratio (10-20) Glucose (70-99) mg/dl Calcium (8.5-10.1) mg/dl Phosphorus (2.5-4.9) mg/dl Magnesium (1.8-2.4) mg/dl Fluid Comment Synovial Source KNEE Synovial Color LOY Synovial Appearance TURBID Synovial WBC 99980 H (0-200) /ul Synovial RBC 4000 /uL Synovial Polynuclear % 90.1 % Synovial Mononuclear % 9.9 % Synovial Crystals Vancomycin Trough (See Comment) mcg/ml Blood Type O Positive Antibody Screen NEGATIVE 01/27/21 Range/Units 13:20 WBC (4.8-10.8) K/uL RBC (4.2-5.4) M/uL Hgb (12.0-16.0) g/dL Hct (37-47) % MCV (80-100) fL MCH (25-34) pg MCHC (32-36) g/dL RDW Std Deviation (36.4-46.3) fL RDW Coeff of Heraclio (11.5-14.5) % Plt Count (130-400) K/uL MPV (7.4-10.4) fL Sodium (136-145) mmol/L Potassium (3.5-5.1) mmol/L Chloride (98-107) mmol/L Carbon Dioxide (21-32) mmol/L Anion Gap (3-11) BUN (7-18) mg/dl Creatinine (0.6-1.2) mg/dl Est Cr Clr Drug Dosing ml/min Est GFR ( Amer) ml/min Est GFR (Non-Af Amer) ml/min BUN/Creatinine Ratio (10-20) Glucose (70-99) mg/dl Calcium (8.5-10.1) mg/dl Phosphorus (2.5-4.9) mg/dl Magnesium (1.8-2.4) mg/dl Fluid Comment Synovial Source Synovial Color Synovial Appearance Synovial WBC (0-200) /ul Synovial RBC /uL Synovial Polynuclear % % Synovial Mononuclear % % Synovial Crystals Vancomycin Trough 8.8 (See Comment) mcg/ml Blood Type Antibody Screen Medications Administered Current Inpatient Medications Acetaminophen (Acetaminophen 325 Mg Tab) 650 mg PO Q4H PRN PRN Reason: Moderate Pain Stop: 02/24/21 15:18 Last Admin: 01/27/21 22:07 Dose: 650 mg Documented by: Bupropion HCl (Bupropion Hcl 100 Mg Tablet) 100 mg PO BID [facility] Stop: 02/24/21 20:59 Last Admin: 01/27/21 21:04 Dose: 100 mg Documented by: Duloxetine HCl (Duloxetine Hcl 60 Mg Cap) 60 mg PO QAM [facility] Stop: 02/25/21 08:59 Last Admin: 01/27/21 08:50 Dose: 60 mg Documented by: Ferrous Sulfate (Ferrous Sulfate 325 Mg Tab) [facility]: 02/25/21 08:59 Last Admin: 01/27/21 08:50 Dose: 325 mg Documented by: Furosemide (Furosemide 40 Mg Tab) 40 mg PO QAM [facility] Stop: 02/25/21 08:59 Last Admin: 01/27/21 08:50 Dose: 40 mg Documented by: Hydroxyzine HCl (Hydroxyzine Hcl 25 Mg Tab) 25 mg PO TID PRN PRN Reason: Anxiety Stop: 02/24/21 15:18 Ceftriaxone Sodium 2,000 mg/ (Dextrose) 70 mls @ 140 mls/hr IV Q24H [facility]; Protocol Stop: 02/02/21 10:59 Last Infusion: 01/27/21 11:30 Dose: Infused Documented by: Vancomycin HCl 1,250 mg/ (Sodium Chloride) 275 mls @ 200 mls/hr IV Q8H [facility] Stop: 02/03/21 21:59 Last Admin: 01/28/21 05:27 Dose: 200 mls/hr Documented by: Levothyroxine Sodium (Levothyroxine Sodium 175 Mcg Tablet) 175 mcg PO DAILYBB [facility] Stop: 02/25/21 06:29 Last Admin: 01/28/21 05:26 Dose: 175 mcg Documented by: Miscellaneous Information (Vancomycin Consult Active) 1 ea N/A UD PRN PRN Reason: Consult Stop: 02/24/21 15:18 Morphine Sulfate (Morphine Sulfate 2 Mg/Ml Carp) 2 mg IV Q4H PRN PRN Reason: Pain Stop: 02/08/21 15:18 Last Admin: 01/27/21 12:58 Dose: 2 mg Documented by: Multivitamins (Multivitamin Tab) 1 tab PO QAM [facility] Stop: 02/25/21 08:59 Last Admin: 01/27/21 08:50 Dose: 1 tab Documented by: Multivitamins/Minerals (Calcium 600mg + Vit D 400 Iu Tab) 1 tab PO BID [facility] Stop: 02/24/21 20:59 Last Admin: 01/27/21 21:04 Dose: 1 tab Documented by: Ondansetron HCl (Ondansetron Inj 2 Mg/Ml 2 Ml Vial) 4 mg IV Q4H PRN PRN Reason: Nausea And Vomiting Stop: 02/24/21 15:18 Pantoprazole Sodium (Pantoprazole 40 Mg Tab) [facility] [place]: 02/25/21 08:59 Last Admin: 01/27/21 08:50 Dose: 40 mg Documented by: Potassium Chloride (Potassium Chloride Crtab 20 Meq Tabcr) 20 [facility]q [facility] [place]: 02/25/21 08:59 Last Admin: 01/27/21 08:50 Dose: 20 meq Documented by: Pregabalin (Pregabalin 150 Mg Cap) 150 mg PO BID [facility] Stop: 02/24/21 20:59 Last Admin: 01/27/21 21:04 Dose: 150 mg Documented by: Sodium Hypochlorite (Dakin's Soln 0.5% Full Strength 473ml Btl) 1 appln EXT ONE ONE Stop: 01/28/21 10:01 Tramadol HCl (Tramadol Hcl 50 Mg Tablet) 50 mg PO Q6H PRN PRN Reason: pain Stop: 02/24/21 15:18 Last Admin: 01/28/21 05:26 Dose: 50 mg Documented by: Trazodone HCl (Trazodone Hcl 100 Mg Tab) 100 mg PO [facility] Stop: 02/24/21 20:59 Last Admin: 01/27/21 21:04 Dose: 100 mg Documented by: Zinc Sulfate (Zinc Sulfate 220 Mg Capsule) [facility] [place]: 02/25/21 08:59 Last Admin: 01/27/21 08:49 Dose: 220 mg Documented by:
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
[2021-01-28 07:33] LABS: Potassium 3.9 mmol/L (3.5-5.1)
[2021-01-28 07:34] LABS: Magnesium 2.2 mg/dl (1.8-2.4)
[2021-01-28] MEDS: ACETAMINOPHEN 325 MG TAB PO PRN (08:17)
[2021-01-28] MEDS: MoRPHine SULFATE 2 MG/ML CARP IV PRN ×2 (08:17→15:10)
[2021-01-28] MEDS: POTASSIUM CHLORIDE CRTAB 20 MEQ TABCR PO SCH (08:19)
[2021-01-28] MEDS: buPROPion HCl 100 MG TABLET PO SCH ×2 (08:19→21:05)
[2021-01-28] MEDS: DULoxetine HCL 60 MG CAP PO SCH (08:19)
[2021-01-28] MEDS: PANTOprazole 40 MG TAB PO SCH (08:19)
[2021-01-28] MEDS: CALCIUM 600MG + VIT D 400 IU TAB PO SCH ×2 (08:20→21:05)
[2021-01-28] MEDS: FERROUS SULFATE 325 MG TAB PO SCH (08:20)
[2021-01-28] MEDS: MULTIVITAMIN TAB PO SCH (08:20)
[2021-01-28] MEDS: ZINC SULFATE 220 MG CAPSULE PO SCH (08:20)
[2021-01-28] MEDS: PREGABALIN 150 MG CAP PO SCH ×2 (08:22→21:06)
--- NOTE | 2021-01-28 08:29 | History & Physical Bridge Note ---
Date of Service January 28, 2021 History & Physical Bridge Note I have examined the patient, reviewed the History & Physical and in the interval since the performance of the History & Physical I have noted the following changes of clinical significance: no changes noted
--- NOTE | 2021-01-28 08:56 | Progress Notes ---
DATE OF SERVICE: 01/28/2021. SUBJECTIVE: A 56-year-old female, a little over 2 years out from a left knee replacement, 1 year out from a right, admitted with cellulitis earlier this week. Her symptoms all started just last weeken d with some cellulitis. On Saturday, she started having knee pain when she came to the hospital. She was admitted and started on antibiotics. She has continued to have knee pain and we were consulted yesterday. We aspirated her knee, which suggested inflammatory fluid and likely a knee joint infecti on. This all started from cellulitis in the left leg. She has had problems with cellulitis and infe ction in this leg in the past. She has been about 6 or 7 years since her last bowel. No other real complaints. Knee is feeling a little bit better since we aspirated yesterday. OBJECTIVE: VITAL SIGNS: Temperature 36.8. Vital signs are stable. PHYSICAL EXAMINATION: This is a pleasant middle-aged female. She is sitting up on bed, looks pretty comfortable this morning. EXTREMITIES: Examination of the left leg reveals a large soft tissue envelope. A fairly mild if any cellulitis changes, which seemed to be improved. She can do a straight leg raise with some effort w ith a little bit of pain. Range of motion 0-90 with some pain. There is no varus or valgus instabil ity. She is neurologically intact. LABORATORY DATA: White cell count 6.50. Hemoglobin 10.1. Hematocrit 30.5. Sed rate from earlier w as a 46 on 01/25/2021. C-reactive protein was 14.10 on 01/25/2021. X-RAYS: X-rays of the left knee were reviewed. It shows a cemented posterior stabilized total knee arthroplasty with a tibial stem. Components looked well fixed. No signs of loosening. ASSESSMENT A 56-year-old female, a little over 2 years out from a left total knee replacement with a recent bout of cellulitis and now what looks to be an infected total knee arthroplasty. She has had infection history in this leg in the past and required a wound VAC 6 years ago, but no bout since . Her knee was clinically doing well until Saturday when it started causing pain. PLAN: We talked about treatment options. Certainly, this is best treated surgically. We talked abo ut debridement and a poly exchange and component retention versus resection arthroplasty, antibiotic spacer and subsequent reimplantation. I discussed both these options with her. Certainly, the most likely way to get rid of all the infection would be with the antibiotic spacer. It requires quite a bit more treatment. I told her the success rate is of about 90%. We talked about the I and D and co mponent retention with the success rate probably 40-50%. She really wants to avoid any additional taylor rgery and wants to give a trial of the irrigation, debridement and poly exchange and component retent ion. We are going to take her to the operating room and do an I and D and poly exchange. Obviously, if th e components are loose will take them out but that is extremely unlikely. She may need long-term ant ibiotics and with her history of infection, it is probably a good consideration to keep her on some a ntibiotics may be lifetime. She will need 6 weeks of IV antibiotics postop followed by oral antibiot ics and followed by her sed rate. The risks and benefits of this procedure were explained to the pat ient include but not limited to DVT, PE, , infection, neurological injury, vascular injury, need for further surgery in the future, fracture, leg length inequality, nerve palsy, incomplete relief o f symptoms, etc. The patient understands and desires to proceed. Informed consent was obtained. Job ID: [id number]
[2021-01-28] MEDS ORDERED: DAKIN'S SOLN 0.5% FULL STRENGTH 473ML BTL EXT ONE (10:00)
[2021-01-28] MEDS ORDERED: PROPOFOL IV EMULSION 10 MG/ML 20 ML VIAL IV ONE (10:27)
[2021-01-28] MEDS ORDERED: fentaNYL citrate 100 MCG/2 ML VIAL ONE ×2 (10:28→11:35)
[2021-01-28] MEDS ORDERED: VANCOMYCIN HCL 1000MG/20ML VIAL ONE (10:28)
[2021-01-28] MEDS ORDERED: LIDOCAINE 2% 2 ML VIAL/AMP(20MG/ML) INFIL ONE (10:28)
[2021-01-28] MEDS ORDERED: MIDAZOLAM HCL 1 MG/ML 2ML VIAL ONE (10:28)
[2021-01-28] MEDS ORDERED: ONDANSETRON INJ 2 MG/ML 2 ML VIAL IV PRN ×2 (11:09→14:48)
[2021-01-28] MEDS ORDERED: ePHEDrine sulfate 50 MG/ML AMP IV PRN (11:09)
[2021-01-28] MEDS ORDERED: ATROPINE SULFATE 0.1 MG/ML 10ML SYR IV PRN (11:09)
[2021-01-28] MEDS: cefTRIAXone SODIUM 2,000 MG in DEXTROSE 5% 50 ML IV SCH (11:32)
[2021-01-28] MEDS ORDERED: HYDROmorphone INJ 2 MG/ML SYR/VIAL ONE (12:20)
[2021-01-28] MEDS ORDERED: EPINEPHrine INJ 1 MG/ML AMP ONE (12:47)
[2021-01-28] MEDS ORDERED: BUPIVACAINE 0.5 % 5 MG/1 ML MPF 30ML VIAL ONE (12:47)
[2021-01-28] MEDS ORDERED: KETOROLAC 30 MG/ML VIAL ONE (13:57)
[2021-01-28] MEDS: fentaNYL citrate 100 MCG/2 ML VIAL IV PRN ×2 (14:03→14:08)
--- NOTE | 2021-01-28 14:07 | Operative Report ---
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 She did not have much in the way of synovitis. There was no gross pus present. All implants. Well fixed well outside of loosening or osteolysis. Fluids 1500 cc Specimens Joint fluid sent for Gram stain and culture x2. Joint synovium sent for tissue culture x2 Anesthesia Type General Complications none Disposition Accompanied Patient To Recovery: No Indications Patient is a 56-year-old female who has a history of a left calf infection 8 years ago. She had resolved this after cancer treatment has had any problems in the past 7 years. She developed progressive knee arthritis and had her left knee replaced a little over 2 years ago. She did well. Her knee was functioning without pain and then she developed a cellulitis in her lower leg about 1 week ago. On Saturday of this week she started developing some knee pain. She came to the hospital was admitted and started on IV antibiotics for cellulitis. We were consulted yesterday and we aspirated her knee which suggested a septic arthritis. Patient did get was given the option of irrigation debridement, IV antibiotic treatment, versus resection arthroplasty antibiotic spacer. She was strongly desiring to proceed with just the irrigation debridement and polyethylene exchange of hopes of clearing this infection. Description of Procedure Patient was taken to the operating room, identified, placed on the operating table supine position but all contractors were properly padded. IV antibiotics were had been provided preoperatively. A general anesthetic was implemented. Feliciano catheter was placed in sterile fashion for left thigh turn was then placed in the left lower extremities then scrubbed with Hibiclens and prepped with ChloraPrep and draped in usual sterile fashion. The left leg was elevated exsanguinated with use of an Esmarch interspace at 350 mmHg. An anterior posterior left knee was then performed through the previous incision. Sharp dissection was carried through subcutaneous tissue down the extensor mechanism. Medial parapatellar arthrotomy incision was made. Subperiosteal dissection was carried out medially. She was still bleeding quite a bit so we increased the tourniquet to a 400 mmHg. A complete synovectomy of the suprapatellar pouch and medial lateral gutters was then performed. There was not extensive some synovitis. We did send some the synovium off for tissue culture x2. We also sent joint fluid off for aerobic and anaerobic culture x2. I subluxated then left knee laterally and flex the knee. The polyethylene was removed. We then debrided the back in the lateral side of the knee joint with use of a rongeur. I then irrigated the wound extensively with 3 L of pulsatile lavage solution. I then irrigated with full-strength Dakin solution left to sit in the wound for 3 minutes. We then irrigated this out and vigorously scrub the implants with a toothbrush to get all the intricacies of the implants. We then washed this out with 3 L of pulsatile lavage solution. I then irrigated with 500 cc of hydrogen peroxide and left this in the wound for 3 minutes. I then the use the toothbrush to scrub the implants again. We then irrigated this out with about 500 cc of normal saline. I then irrigated the wound again with a dilute Betadine solution and left to sit in the wound for 3 minutes. I once again vigorously scrubbed implants with a toothbrush and then irrigated out with additional 2 L of fluid. Once this was complete we changed the drapes and gowns and gloves and had a whole new set up. I then used 3 L of pulsatile lavage solution with vancomycin and it irrigated the wound again. I then trialed the knee and elected to place a 12 mm posterior stabilized insert. She did have 1 dislocation postoperatively. Her knee did not seem particularly lax with a trial 12 implants she got full good full extension. We elected to place a more stable implant in order to decrease the risk of further instability. The tourniquet was then let down for turn time 73 minutes. Hemostasis surgery electrocautery. I then did place 1 g of vancomycin in the wound and then closed the extensor mechanism with #1 PDS suture in a [id number] fashion with extensor mechanism checked found to be intact the subcutaneous tissue then closed with 2 Dexon suture in a buried interrupted fashion skin was then closed with skin vanessa. Leg was then cleaned and dried a sterile dressing was Xeroform, 4 x 4's, ABD pad, cast padding, Felix bandage were applied. Patient then to brought out of general incision transferred to the recovery room in stable condition. Patient tolerated the procedure well and there were no complications. Jerome Chu, my PA, was present for the entire procedure. His assistance was required for proper patient positioning, prepping and draping, surgical exposure, retraction, perform the technical details the operation, closure of the wound, and placement of the sterile bandage. I attest to the content of the Intraoperative Record and any orders documented therein. Any exceptions are noted below.
[2021-01-28] MEDS: HYDROmorphone INJ 1 MG/ML SYRINGE IV PRN ×3 (14:11→14:21)
--- NOTE | 2021-01-28 14:39 | Anesthesiology Progress Note ---
Date of Service January 28, 2021 Anesthesia Post Procedure Vital Signs Vital Signs: Temp Pulse Pulse Resp BP Pulse Ox 01/28/21 14:30 36.2 C L 76 16 114/53 L 97 01/28/21 14:20 76 16 115/56 L 97 01/28/21 14:10 77 16 125/68 97 01/28/21 14:00 80 14 134/71 100 01/28/21 13:52 36.1 C L 65 12 88/41 L 98 01/28/21 11:02 72 17 115/58 L 98 01/28/21 06:55 36.8 C 79 16 111/70 95 01/27/21 23:31 36.9 C 75 18 116/67 98 01/27/21 14:40 37.4 C 75 16 100/50 L 98 Pain Intensity Left Leg: Pain Intensity: 8 Transfer of Care Handoff Completed per policy Notes Mental Status: alert / awake / arousable and participated in evaluation Patient Amnestic to Procedure: Yes Nausea / Vomiting: adequately controlled Pain: adequately controlled Airway Patency, RR, SpO2: stable & adequate BP & HR: stable & adequate Hydration State: stable & adequate Anesthetic Complications: no major complications apparent and Pt Satisfied with anesthetic care
[2021-01-28] MEDS ORDERED: HYDROmorphone INJ 0.5 MG/0.5 ML SYR IV PRN (14:48)
[2021-01-28] MEDS ORDERED: diphenhydrAMINE Capsule 25 MG CAP PO PRN (14:48)
[2021-01-28] MEDS ORDERED: bisacodyL 10 MG SUPP PR PRN (14:48)
[2021-01-28] MEDS ORDERED: METOCLOPRAMIDE HCL INJ 5 MG/ML 2 ML VIAL IV PRN (14:48)
[2021-01-28] MEDS ORDERED: MAGNESIUM HYDROXIDE SUSP 30 ML UDC PO PRN (14:48)
[2021-01-28] MEDS ORDERED: NALOXONE HCL 0.4 MG/1 ML VIAL/CARP IV PRN (14:48)
[2021-01-28] MEDS ORDERED: ALUMINUM/MAGNESIUM SUSP 30 ML UDC PO PRN (14:48)
[2021-01-28] MEDS: SODIUM CHLORIDE 0.9% 1000ML 1,000 ML IV SCH (15:07)
[2021-01-28] MEDS: ACETAMINOPHEN 500 MG TAB PO SCH ×2 (15:08→21:06)
[2021-01-28] MEDS: KETOROLAC 30 MG/ML VIAL IV SCH ×2 (16:01→21:35)
[2021-01-28] MEDS: ASCORBIC ACID 500 MG TAB PO SCH (17:25)
[2021-01-28] MEDS: ALBUMIN 25% 12.5 GM/50 ML VIAL IV SCH ×2 (18:43→19:41)
[2021-01-28] MEDS ORDERED: TRANEXAMIC ACID / 0.7% NACL 1,000 MG/100 ML BAG IV SCH (20:00)
[2021-01-28] MEDS: ASPIRIN 81 MG ECTAB PO SCH (21:04)
[2021-01-28] MEDS: traZODone HCL 100 MG TAB PO SCH (21:05)
[2021-01-28] MEDS: DOCUSATE SODIUM 100 MG CAP PO SCH (21:05)
[2021-01-28] MEDS: TAPENTADOL HCL ER 50 MG TABCR PO SCH (21:06)
[2021-01-28] MEDS: SENNA 8.6 MG TAB PO SCH (21:06)
[2021-01-29] MEDS: SODIUM CHLORIDE 0.9% 1000ML 1,000 ML IV SCH (03:45)
[2021-01-29] MEDS: KETOROLAC 30 MG/ML VIAL IV SCH ×4 (04:03→22:18)
[2021-01-29] MEDS ORDERED: VANCOMYCIN TROUGH ONE (05:30)
[2021-01-29] MEDS: ACETAMINOPHEN 500 MG TAB PO SCH ×3 (05:50→22:18)
[2021-01-29] MEDS: traMADol HCL 50 MG TABLET PO PRN (05:50)
[2021-01-29] MEDS: LEVOTHYROXINE SODIUM 175 MCG TABLET PO SCH (05:51)
[2021-01-29 06:41] LABS: Hematocrit (blood only) 26.9 % (37-47); Hemoglobin 8.8 g/dL (12.0-16.0); Mean Corpuscular Hemoglobin 30.2 pg (25-34); Mean Corpuscular Hgb Conc 32.7 g/dL (32-36); Mean Corpuscular Volume 92.4 fL (80-100); Mean Platelet Volume 8.6 fL (7.4-10.4); Platelet Count 286 K/uL (130-400); RDW Coefficient of Variation 13.9 % (11.5-14.5); RDW Standard Deviation 46.7 fL (36.4-46.3); Red Blood Count 2.91 M/uL (4.2-5.4); White Blood Count 12.66 K/uL (4.8-10.8)
[2021-01-29] MEDS: VANCOMYCIN HCL 1,250 MG in SODIUM CHLORIDE 0.9% 250 ML IV SCH ×3 (06:51→22:19)
[2021-01-29 07:16] LABS: Creatinine Clr Calc Pharmacy 182.4 ml/min; Est GFR (African American) 122.9 ml/min; Est GFR (Non-African American) 106.1 ml/min; Magnesium 2.1 mg/dl (1.8-2.4); Phosphorus 3.8 mg/dl (2.5-4.9)
[2021-01-29] MEDS: HYDROmorphone HCL 2 MG TAB PO PRN ×3 (08:23→20:37)
--- NOTE | 2021-01-29 08:27 | Pharmacy Report ---
Pharmacy Abx Dose Short Note - Date of Service January 29, 2021 - Assessment & Plan Assessment 56 year old F receiving Vancomycin for treatment of cellulitis/L knee infection? Day # 5 of antimicrobial therapy. * Patient went to OR 01/28 for I & D of left knee. * Cultures pending from left knee * Surgeon feels that patient will require at least 6 weeks of antibiotics. Plan Laboratory Tests 01/29/21 06:26 Vancomycin Trough 18.0 Vancomycin * Trough level of 18.0 mcg/mL is therapeutic * Continue dose of 1250 mg IV every 8 hours * Goal trough level : 15 to 20 mcg/mL * Trough or random level ordered for: 01/30/21 @ 1330 Pharmacy will continue to follow and will adjust dose/frequency as necessary. Thank you.
--- NOTE | 2021-01-29 08:39 | Hospitalist Progress Note ---
Date of Service January 29, 2021 Assessment & Plan (1) Cellulitis: Plan: Infection of Left TKA - Failure of outpatient antibiotic treatment with Keflex and Bactrim, skin outlined with marker and dated - hx of Left TKA 2 yrs ago. - Started on IV Rocephin at outpatient [facility] on 01/24, continue Rocephin IV and Vancomycin IV - Follow BCx x 2, WBC 11.23. No area for poss. wound culture. - ESR 46, CRP 14.1, negative procal - US for DVT is negative - was started on Eliquis on 01/22 for her hx of DVT as outpatient but now finished starter pack. No need to continue. - Negative Lymes and anaplasmosis testing - CT LLE knee - IMPRESSION: 1. Total joint arthroplasty with patellar resurfacing. Artifact from the hardware limits the study. 2. No acute fracture or malalignment identified. 3. Moderate joint effusion. 4. Nonspecific subcutaneous edema of the lower leg with posterior skin thickening. Venous stasis, cellulitis or lymphedema considered. 5. Lower extremity varicosities. WBC down to 8.5K, erythema improved/resolved, however patient finisher card tender to palpation at knee joint, and having difficulty moving joint (left knee) Left lower extremity elevation, ice packs as needed as well Orthopedics consulted (Dr. Lemon) given hx of TKA - s/p aspiration of left knee - about 60 mL of cloudy yellow fluid obtained, WBC > 17,000 - Culture from the fluid currently pending - suggesting inflammatory fluid and likely a knee joint infection - This all started from cellulitis in the left leg. She has had problems with cellulitis and infection in this leg in the past. - now s/p I&D and component retention (01/28/2021) (Surgeon discussed with the pt success rate probably 40-50%). Pt really wants to avoid any additional surgery and wants to give a trial of the irrigation, debridement and poly exchange and component retention. - plan for likely IV Abx for 6 weeks - ID consulted (2) LEENA (obstructive sleep apnea): Plan: - can use home cpap (3) Hypothyroidism: Plan: - Cont levothyroxine 175 mcg daily (4) Depression: Plan: - Continue wellbutrin and Cymbalta (5) Anxiety: Plan: - cont hydroxyzine prn (6) UTI (urinary tract infection): Plan: - Started on bactrim for UTI on 01/24, UA does not appear to be grossly infected, follow culture. Hold PO antibiotics, po as above. Pt does not endorse urinary symptoms currently. (7) Obesity: Plan: - BMI of 47, encourage lifestyle medications after discharge DVT ppx: - teds, scds, heparin subq CODE: Full Dispo: From home, likely to remain in the hospital x 2 days Admission and Anticipated Discharge Date Admission Date: January 25, 2021 Subjective Patient seen for follow-up of left lower extremity cellulitis, possible infection of left TKA Currently sitting up in bed, in no distress No chest pain or shortness of breath no abdominal pain Erythema of her left lower extremity has resolved however she still had tenderness and difficulty bending her knee Seen by orthopedics and d/t concern for infection of left TKA, underwent I&D yesterday Pt reports that overall she feels better, she was able to ambulate to bathroom, and her knee feels better Review of Systems Review of Systems: All systems reviewed & are unremarkable except as noted in Subjective Physical Exam Physical Exam: General: morbidly obese F in NAD Head: Normocephalic, atraumatic ENT: PERRL, EOMI, mucous membranes moist Chest: Clear to auscultation, on room air, no adventitious breath sounds Cardiac: Regular rate and rhythm, no murmur Abdominal: NABS x 4 quadrants, soft, obese, nondistended, nontender to palpation, no rebound or guarding Extremities: LLE erythema and warmth initially extending from left ankle to medial thigh, involving scar proximal to the knee (now resolved). s/p TKA 2 years ago with separate anterior scar. + Difficulty bending knee due to pain.- now improved + induration at L knee. (Now s/p I&D of Left knee, LLE in [place] w rap, ice applied). RLE s/p TKA, otherwise RLE unremarkable. Psych: Normal mood and affect Neuro: AAO x 3, speech is clear, no peripheral sensory deficits, moves extremities, as above Results & Data Results & Data ([facility]) Vital Signs (Past 12 Hours) Vital Signs Temp Pulse Resp BP Pulse Ox 01/29/21 07:13 36.7 C 67 18 110/67 90 01/28/21 22:31 36.7 C 73 18 101/60 95 Laboratory Results 01/29/21 01/29/21 01/29/21 Range/Units 06:26 06:26 06:26 WBC 12.66 H (4.8-10.8) K/uL RBC 2.91 L (4.2-5.4) M/uL Hgb 8.8 L (12.0-16.0) g/dL Hct 26.9 L (37-47) % MCV 92.4 (80-100) fL MCH 30.2 (25-34) pg MCHC 32.7 (32-36) g/dL RDW Std Deviation 46.7 H (36.4-46.3) fL RDW Coeff of Heraclio 13.9 (11.5-14.5) % Plt Count 286 (130-400) K/uL MPV 8.6 (7.4-10.4) fL Sodium 141 (136-145) mmol/L Potassium 5.0 D (3.5-5.1) mmol/L Chloride 108 H (98-107) mmol/L Carbon Dioxide 27 (21-32) mmol/L Anion Gap 6.0 (3-11) BUN 15 (7-18) mg/dl Creatinine 0.52 L (0.6-1.2) mg/dl Est Cr Clr Drug Dosing 182.4 ml/min Est GFR ( Amer) 122.9 ml/min Est GFR (Non-Af Amer) 106.1 ml/min BUN/Creatinine Ratio 28.0 H (10-20) Glucose 117 H (70-99) mg/dl Calcium 8.0 L (8.5-10.1) mg/dl Phosphorus 3.8 (2.5-4.9) mg/dl Magnesium 2.1 (1.8-2.4) mg/dl Vancomycin Trough 18.0 (See Comment) mcg/ml Medications Administered Current Inpatient Medications Acetaminophen (Acetaminophen 500 Mg Tab) 1,000 mg PO Q8 [facility] Stop: 02/27/21 14:59 Last Admin: 01/29/21 05:50 Dose: 1,000 mg Documented by: Al Hydrox/Mg Hydrox/Simethicone (Aluminum/Magnesium Susp 30 Ml Udc) 15 ml PO Q4H PRN PRN Reason: Heartburn Stop: 02/27/21 14:47 Ascorbic Acid (Ascorbic Acid 500 Mg Tab) 500 mg PO BIDM [facility] Stop: 02/27/21 16:59 Last Admin: 01/28/21 17:25 Dose: 500 mg Documented by: Aspirin (Aspirin 81 Mg Ectab) 81 mg PO BID [facility] Stop: 02/27/21 20:59 Last Admin: 01/28/21 21:04 Dose: 81 mg Documented by: Bisacodyl (Bisacodyl 10 Mg Supp) 10 mg CO DAILY PRN PRN Reason: Constipation Stop: 02/27/21 14:47 Bupropion HCl (Bupropion Hcl 100 Mg Tablet) 100 mg PO BID [facility] Stop: 02/24/21 20:59 Last Admin: 01/28/21 21:05 Dose: 100 mg Documented by: Diphenhydramine HCl (Diphenhydramine Capsule 25 Mg Cap) 25 mg PO Q8H PRN PRN Reason: Itching Stop: 02/27/21 14:47 Docusate Sodium (Docusate Sodium 100 Mg Cap) 100 mg PO BID [facility] Stop: 02/27/21 20:59 Last Admin: 01/28/21 21:05 Dose: Not Given Documented by: Duloxetine HCl (Duloxetine Hcl 60 Mg Cap) 60 mg PO [facility] Stop: 02/25/21 08:59 Last Admin: 01/28/21 08:19 Dose: 60 mg Documented by: Ferrous Sulfate (Ferrous Sulfate 325 Mg Tab) [facility] Stop: 02/25/21 08:59 Last Admin: 01/28/21 08:20 Dose: 325 mg Documented by: Furosemide (Furosemide 40 Mg Tab) 40 mg PO [facility] Stop: 02/25/21 08:59 Last Admin: 01/27/21 08:50 Dose: 40 mg Documented by: Hydromorphone HCl (Hydromorphone Inj 0.5 Mg/0.5 Ml Syr) 0.5 mg IV Q4H PRN PRN Reason: Pain or Pre PT Stop: 02/11/21 14:47 Last Admin: 01/28/21 19:47 Dose: 0.5 mg Documented by: Hydromorphone HCl (Hydromorphone Hcl 2 Mg Tab) 2 mg PO Q4H PRN PRN Reason: Pain (severe) Stop: 02/11/21 17:37 Last Admin: 01/29/21 08:23 Dose: 2 mg Documented by: Hydroxyzine HCl (Hydroxyzine Hcl 25 Mg Tab) 25 mg PO TID PRN PRN Reason: Anxiety Stop: 02/24/21 15:18 Ceftriaxone Sodium 2,000 mg/ (Dextrose) 70 mls @ 140 mls/hr IV Q24H [facility]; Protocol Stop: 02/02/21 10:59 Last Infusion: 01/28/21 15:17 Dose: Infused Documented by: Vancomycin HCl 1,250 mg/ (Sodium Chloride) 275 mls @ 200 mls/hr IV Q8H [facility] Stop: 02/03/21 21:59 Last Infusion: 01/29/21 08:16 Dose: Infused Documented by: Ketorolac Tromethamine (Ketorolac 30 Mg/Ml Vial) 30 mg IV Q6H [facility] Stop: 01/30/21 10:01 Last Admin: 01/29/21 04:03 Dose: 30 mg Documented by: Levothyroxine Sodium (Levothyroxine Sodium 175 Mcg Tablet) 175 mcg PO DAILYBB [facility] Stop: 02/25/21 06:29 Last Admin: 01/29/21 05:51 Dose: 175 mcg Documented by: Magnesium Hydroxide (Magnesium Hydroxide Susp 30 Ml Udc) 30 ml PO Q6H PRN PRN Reason: Constipation Stop: 02/27/21 14:47 Metoclopramide HCl (Metoclopramide Hcl Inj 5 Mg/Ml 2 Ml Vial) 10 mg IV Q6H PRN PRN Reason: Nausea And Vomiting Stop: 02/27/21 14:47 Miscellaneous Information (Vancomycin Consult Active) 1 ea N/A UD PRN PRN Reason: Consult Stop: 02/24/21 15:18 Multivitamins (Multivitamin Tab) 1 tab PO QAM [facility] Stop: 02/25/21 08:59 Last Admin: 01/28/21 08:20 Dose: 1 tab Documented by: Multivitamins/Minerals (Calcium 600mg + Vit D 400 Iu Tab) 1 tab PO BID [facility] Stop: 02/24/21 20:59 Last Admin: 01/28/21 21:05 Dose: 1 tab Documented by: Naloxone HCl (Naloxone Hcl 0.4 Mg/1 Ml Vial/Carp) 0.1 mg IV Q5M PRN PRN Reason: Oversedation/Resp Depression Stop: 02/27/21 14:47 Ondansetron HCl (Ondansetron Inj 2 Mg/Ml 2 Ml Vial) 4 mg IV Q6H PRN PRN Reason: Nausea And Vomiting Stop: 02/27/21 14:47 Pantoprazole Sodium (Pantoprazole 40 Mg Tab) [facility] Stop: 02/25/21 08:59 Last Admin: 01/28/21 08:19 Dose: 40 mg Documented by: Potassium Chloride (Potassium Chloride Crtab 20 Meq Tabcr) 20 meq PO [facility] Stop: 02/25/21 08:59 Last Admin: 01/28/21 08:19 Dose: 20 meq Documented by: Pregabalin (Pregabalin 150 Mg Cap) 150 mg PO BID [facility] Stop: 02/24/21 20:59 Last Admin: 01/28/21 21:06 Dose: 150 mg Documented by: Sennosides (Senna 8.6 Mg Tab) 17.2 mg PO [facility] Stop: 02/27/21 20:59 Last Admin: 01/28/21 21:06 Dose: Not Given Documented by: Tapentadol (Tapentadol Hcl Er 50 Mg Tabcr) 50 mg PO Q12 [facility] Stop: 02/11/21 20:59 Last Admin: 01/28/21 21:06 Dose: 50 mg Documented by: Tramadol HCl (Tramadol Hcl 50 Mg Tablet) 50 mg PO Q6H PRN PRN Reason: pain (mild-moderate) Stop: 02/24/21 15:18 Last Admin: 01/29/21 05:50 Dose: 50 mg Documented by: Trazodone HCl (Trazodone Hcl 100 Mg Tab) 100 mg PO [facility] Stop: 02/24/21 20:59 Last Admin: 01/28/21 21:05 Dose: 100 mg Documented by: Zinc Sulfate (Zinc Sulfate 220 Mg Capsule) 220 mg PO [facility] Stop: 02/25/21 08:59 Last Admin: 01/28/21 08:20 Dose: 220 mg Documented by:
--- NOTE | 2021-01-29 08:41 | Progress Notes ---
DATE OF SERVICE: 01/29/2021 SUBJECTIVE: A 56-year-old white female postoperative day 1 from irrigation, debridement and polyethy loraine exchange for an acutely septic total knee a little over 2 years out from initial knee replacemen t. She is feeling better this morning. She says she just feels better. Pain is a little bit better and just feels better in general. No chest pain or shortness of breath. Not feeling dizzy or light headed. OBJECTIVE: VITAL SIGNS: Temperature 36.7. Vital signs are stable. PHYSICAL EXAMINATION: GENERAL: Shows a pleasant middle-aged female. She is sitting up in her bed, looks pretty comfortabl e. EXTREMITIES: Examination of the left leg reveals the dressing to be clean, dry and intact. Leg is w ell aligned. She can dorsiflex and plantarflex her foot appropriately. She can do a good straight l eg raise. LABORATORY DATA: Hemoglobin 8.8. Hematocrit 26.9. White cell count 12.66. Electrolytes are stable . ASSESSMENT: A 56-year-old white female postoperative day 1 from irrigation, debridement and polyethy loraine exchange for an acutely septic total knee arthroplasty 2 years out from initial surgery. She is doing well. Her knee looked pretty good at surgery with minimal signs of infection. Not a lot of s ynovitis. Her pain is controlled. Feeling better today. Culture results are all pending. She is n eurologically intact. PLAN: 1. DVT prophylaxis includes thigh-high TEDs, SCDs, and aspirin twice a day. 2. PT/OT. She is going to be weightbearing as tolerated. Left total knee protocol. 3. Pain control, doing okay with current pain regimen. 4. IV antibiotics. Continue broad spectrum antibiotics until cultures are back. I have a feeling i t probably is not going to grow anything, we will probably need to just put her on long-term vancomyc in most likely. We will leave that up to infectious disease specialist and I think there is a consul tation on Saturday. 5. Disposition: Plan to discharge her home. She will need some home health for 6 weeks of IV antib iotic care. Job ID: [id number]
[2021-01-29] MEDS ORDERED: MULTIVITAMIN TAB PO SCH (09:00)
[2021-01-29] MEDS: DOCUSATE SODIUM 100 MG CAP PO SCH ×2 (09:18→20:42)
[2021-01-29] MEDS: TAPENTADOL HCL ER 50 MG TABCR PO SCH ×2 (09:18→20:41)
[2021-01-29] MEDS: ASCORBIC ACID 500 MG TAB PO SCH ×2 (09:18→17:59)
[2021-01-29] MEDS: PREGABALIN 150 MG CAP PO SCH ×2 (09:18→20:41)
[2021-01-29] MEDS: DULoxetine HCL 60 MG CAP PO SCH (09:18)
[2021-01-29] MEDS: FUROSEMIDE 40 MG TAB PO SCH (09:18)
[2021-01-29] MEDS: CALCIUM 600MG + VIT D 400 IU TAB PO SCH ×2 (09:18→20:43)
[2021-01-29] MEDS: PANTOprazole 40 MG TAB PO SCH (09:18)
[2021-01-29] MEDS: ZINC SULFATE 220 MG CAPSULE PO SCH (09:18)
[2021-01-29] MEDS: FERROUS SULFATE 325 MG TAB PO SCH (09:18)
[2021-01-29] MEDS: ASPIRIN 81 MG ECTAB PO SCH ×2 (09:19→20:43)
[2021-01-29] MEDS: buPROPion HCl 100 MG TABLET PO SCH ×2 (09:19→20:44)
[2021-01-29] MEDS: MULTIVITAMIN TAB PO SCH (09:19)
[2021-01-29] MEDS: POTASSIUM CHLORIDE CRTAB 20 MEQ TABCR PO SCH (09:50)
[2021-01-29] MEDS: cefTRIAXone SODIUM 2,000 MG in DEXTROSE 5% 50 ML IV SCH (11:36)
[2021-01-29] MEDS: SENNA 8.6 MG TAB PO SCH (20:41)
[2021-01-29] MEDS: traZODone HCL 100 MG TAB PO SCH (20:42)
[2021-01-30] MEDS: ACETAMINOPHEN 500 MG TAB PO SCH ×3 (05:15→20:45)
[2021-01-30] MEDS: LEVOTHYROXINE SODIUM 175 MCG TABLET PO SCH (05:16)
[2021-01-30] MEDS: KETOROLAC 30 MG/ML VIAL IV SCH ×2 (05:16→09:17)
[2021-01-30] MEDS: VANCOMYCIN HCL 1,250 MG in SODIUM CHLORIDE 0.9% 250 ML IV SCH ×3 (05:16→17:47)
[2021-01-30 07:09] LABS: Hematocrit (blood only) 26.4 % (37-47); Hemoglobin 8.3 g/dL (12.0-16.0); Mean Corpuscular Hemoglobin 29.6 pg (25-34); Mean Corpuscular Hgb Conc 31.4 g/dL (32-36); Mean Corpuscular Volume 94.3 fL (80-100); Mean Platelet Volume 8.4 fL (7.4-10.4); Platelet Count 326 K/uL (130-400); RDW Coefficient of Variation 14.1 % (11.5-14.5); RDW Standard Deviation 48.6 fL (36.4-46.3); White Blood Count 7.34 K/uL (4.8-10.8)
[2021-01-30] MEDS: HYDROmorphone HCL 2 MG TAB PO PRN ×3 (07:21→22:04)
[2021-01-30 07:41] LABS: BUN Creatinine Ratio 26.6 (10-20); Calcium 7.7 mg/dl (8.5-10.1); Est GFR (Non-African American) 100.1 ml/min; Potassium 4.4 mmol/L (3.5-5.1)
--- NOTE | 2021-01-30 07:51 | Hospitalist Progress Note ---
Date of Service January 30, 2021 Assessment & Plan (1) Cellulitis: Plan: Infection of Left TKA - Failure of outpatient antibiotic treatment with Keflex and Bactrim, skin outlined with marker and dated - hx of Left TKA 2 yrs ago. - Started on IV Rocephin at outpatient [facility] on 01/24, continue Rocephin IV and Vancomycin IV - Follow BCx x 2, WBC 11.23. No area for poss. wound culture. - ESR 46, CRP 14.1, negative procal - US for DVT is negative - was started on Eliquis on 01/22 for her hx of DVT as outpatient but now finished starter pack. No need to continue. - Negative Lymes and anaplasmosis testing - CT LLE knee - IMPRESSION: 1. Total joint arthroplasty with patellar resurfacing. Artifact from the hardware limits the study. 2. No acute fracture or malalignment identified. 3. Moderate joint effusion. 4. Nonspecific subcutaneous edema of the lower leg with posterior skin thickening. Venous stasis, cellulitis or lymphedema considered. 5. Lower extremity varicosities. WBC down to 8.5K, erythema improved/resolved, however patient heating and ventilating tender to palpation at knee joint, and having difficulty moving joint (left knee) Left lower extremity elevation, ice packs as needed as well Orthopedics consulted (Dr. Lemon) given hx of TKA - s/p aspiration of left knee - about 60 mL of cloudy yellow fluid obtained, WBC > 17,000 - Culture from the fluid currently pending - suggesting inflammatory fluid and likely a knee joint infection - This all started from cellulitis in the left leg. She has had problems with cellulitis and infection in this leg in the past. - now s/p I&D and component retention (01/28/2021) (Surgeon discussed with the pt success rate probably 40-50%). Pt really wants to avoid any additional surgery and wants to give a trial of the irrigation, debridement and poly exchange and component retention. - plan for likely IV Abx for 6 weeks - ID consulted - eval pending 01/31 -clinically patient is much improved, after surgery she was able to move her knee better. Erythema is completely resolved. Incision is clean, dry, without any drainage. Acute on chronic anemia, blood loss anemia, dilutional Pre-op hemoglobin 10.5, now down to 8.3 (overall stable from yesterday) At home on iron supplements for iron deficiency anemia, continue iron Patient is asymptomatic, no need for blood transfusion, blood loss post-op expected Continue to closely monitor H&H (2) LEENA (obstructive sleep apnea): Plan: - can use home cpap (3) Hypothyroidism: Plan: - Cont levothyroxine 175 mcg daily (4) Depression: Plan: - Continue wellbutrin and Cymbalta (5) Anxiety: Plan: - cont hydroxyzine prn (6) UTI (urinary tract infection): Plan: - Started on bactrim for UTI on 01/24, UA does not appear to be grossly infected, follow culture. Hold PO antibiotics, po as above. Pt does not endorse urinary symptoms currently. (7) Obesity: Plan: - BMI of 47, encourage lifestyle medications after discharge DVT ppx: - teds, scds, heparin subq CODE: Full Dispo: From home, likely to remain in the hospital x 2 days Admission and Anticipated Discharge Date Admission Date: January 25, 2021 Subjective Patient seen for follow-up of left lower extremity cellulitis, possible infection of left TKA Currently sitting up in bed, in no distress No chest pain or shortness of breath no abdominal pain Erythema of her left lower extremity has resolved however she still had tenderness and difficulty bending her knee Seen by orthopedics and d/t concern for infection of left TKA, underwent I&D Pt reports that overall she feels better, she is able to ambulate to bathroom, and her knee feels much better Review of Systems Review of Systems: All systems reviewed & are unremarkable except as noted in Subjective Physical Exam Physical Exam: General: morbidly obese F in NAD Head: Normocephalic, atraumatic ENT: PERRL, EOMI, mucous membranes moist Chest: Clear to auscultation, on room air, no adventitious breath sounds Cardiac: Regular rate and rhythm, no murmur Abdominal: NABS x 4 quadrants, soft, obese, nondistended, nontender to palpation, no rebound or guarding Extremities: LLE erythema and warmth initially extending from left ankle to medial thigh, involving scar proximal to the knee (now resolved). s/p TKA 2 years ago with separate anterior scar. + Difficulty bending knee due to pain.- now improved + induration at L knee. (Now s/p I&D of Left knee - incision clean and dry, no drainage no erythema.) RLE s/p TKA, otherwise RLE unremarkable. Psych: Normal mood and affect Neuro: AAO x 3, speech is clear, no peripheral sensory deficits, moves extremities, as above Results & Data Results & Data ([facility]) Vital Signs (Past 12 Hours) Vital Signs Temp Pulse Resp BP Pulse Ox 01/30/21 07:09 36.7 C 90 18 96/56 L 95 01/29/21 22:37 36.6 C 76 18 102/64 96 Laboratory Results 01/30/21 01/30/21 Range/Units 06:48 06:48 WBC 7.34 (4.8-10.8) K/uL RBC 2.80 L (4.2-5.4) M/uL Hgb 8.3 L (12.0-16.0) g/dL Hct 26.4 L (37-47) % MCV 94.3 (80-100) fL MCH 29.6 (25-34) pg MCHC 31.4 L (32-36) g/dL RDW Std Deviation 48.6 H (36.4-46.3) fL RDW Coeff of Heraclio 14.1 (11.5-14.5) % Plt Count 326 (130-400) K/uL MPV 8.4 (7.4-10.4) fL Sodium 144 (136-145) mmol/L Potassium 4.4 (3.5-5.1) mmol/L Chloride 111 H (98-107) mmol/L Carbon Dioxide 28 (21-32) mmol/L Anion Gap 5.0 (3-11) BUN 17 (7-18) mg/dl Creatinine 0.62 (0.6-1.2) mg/dl Est Cr Clr Drug Dosing 153.0 ml/min Est GFR ( Amer) 116.0 ml/min Est GFR (Non-Af Amer) 100.1 ml/min BUN/Creatinine Ratio 26.6 H (10-20) Glucose 82 (70-99) mg/dl Calcium 7.7 L (8.5-10.1) mg/dl Medications Administered Current Inpatient Medications Acetaminophen (Acetaminophen 500 Mg Tab) 1,000 mg PO Q8 [facility] Stop: 02/27/21 14:59 Last Admin: 01/30/21 05:15 Dose: 1,000 mg Documented by: Al Hydrox/Mg Hydrox/Simethicone (Aluminum/Magnesium Susp 30 Ml Udc) 15 ml PO Q4H PRN PRN Reason: Heartburn Stop: 02/27/21 14:47 Ascorbic Acid (Ascorbic Acid 500 Mg Tab) 500 mg PO BIDM [facility] Stop: 02/27/21 16:59 Last Admin: 01/29/21 17:59 Dose: 500 mg Documented by: Aspirin (Aspirin 81 Mg Ectab) 81 mg PO BID [facility] Stop: 02/27/21 20:59 Last Admin: 01/29/21 20:43 Dose: 81 mg Documented by: Bisacodyl (Bisacodyl 10 Mg Supp) 10 mg NM DAILY PRN PRN Reason: Constipation Stop: 02/27/21 14:47 Bupropion HCl (Bupropion Hcl 100 Mg Tablet) 100 mg PO BID [facility] Stop: 02/24/21 20:59 Last Admin: 01/29/21 20:44 Dose: 100 mg Documented by: Diphenhydramine HCl (Diphenhydramine Capsule 25 Mg Cap) 25 mg PO Q8H PRN PRN Reason: Itching Stop: 02/27/21 14:47 Docusate Sodium (Docusate Sodium 100 Mg Cap) 100 mg PO BID [facility] Stop: 02/27/21 20:59 Last Admin: 01/29/21 20:42 Dose: 100 mg Documented by: Duloxetine HCl (Duloxetine Hcl 60 Mg Cap) 60 mg PO QAM [facility] Stop: 02/25/21 08:59 Last Admin: 01/29/21 09:18 Dose: 60 mg Documented by: Ferrous Sulfate (Ferrous Sulfate 325 Mg Tab) 325 mg PO QAM [facility] Stop: 02/25/21 08:59 Last Admin: 01/29/21 09:18 Dose: 325 mg Documented by: Furosemide (Furosemide 40 Mg Tab) 40 mg PO QAM [facility] Stop: 02/25/21 08:59 Last Admin: 01/29/21 09:18 Dose: 40 mg Documented by: Hydromorphone HCl (Hydromorphone Inj 0.5 Mg/0.5 Ml Syr) 0.5 mg IV Q4H PRN PRN Reason: Pain or Pre PT Stop: 02/11/21 14:47 Last Admin: 01/28/21 19:47 Dose: 0.5 mg Documented by: Hydromorphone HCl (Hydromorphone Hcl 2 Mg Tab) 2 mg PO Q4H PRN PRN Reason: Pain (severe) Stop: 02/11/21 17:37 Last Admin: 01/30/21 07:21 Dose: 2 mg Documented by: Hydroxyzine HCl (Hydroxyzine Hcl 25 Mg Tab) 25 mg PO TID PRN PRN Reason: Anxiety Stop: 02/24/21 15:18 Ceftriaxone Sodium 2,000 mg/ (Dextrose) 70 mls @ 140 mls/hr IV Q24H [facility]; Protocol Stop: 02/02/21 10:59 Last Infusion: 01/29/21 12:48 Dose: Infused Documented by: Vancomycin HCl 1,250 mg/ (Sodium Chloride) 275 mls @ 200 mls/hr IV Q8H [facility] Stop: 02/03/21 21:59 Last Infusion: 01/30/21 06:39 Dose: Infused Documented by: Ketorolac Tromethamine (Ketorolac 30 Mg/Ml Vial) 30 mg IV Q6H [facility] Stop: 01/30/21 10:01 Last Admin: 01/30/21 05:16 Dose: 30 mg Documented by: Levothyroxine Sodium (Levothyroxine Sodium 175 Mcg Tablet) 175 mcg PO DAILYBB [facility] Stop: 02/25/21 06:29 Last Admin: 01/30/21 05:16 Dose: 175 mcg Documented by: Magnesium Hydroxide (Magnesium Hydroxide Susp 30 Ml Udc) 30 ml PO Q6H PRN PRN Reason: Constipation Stop: 02/27/21 14:47 Metoclopramide HCl (Metoclopramide Hcl Inj 5 Mg/Ml 2 Ml Vial) 10 mg IV Q6H PRN PRN Reason: Nausea And Vomiting Stop: 02/27/21 14:47 Miscellaneous Information (Vancomycin Consult Active) 1 ea N/A UD PRN PRN Reason: Consult Stop: 02/24/21 15:18 Multivitamins (Multivitamin Tab) 1 tab PO QAM [facility] Stop: 02/25/21 08:59 Last Admin: 01/29/21 09:19 Dose: 1 tab Documented by: Multivitamins/Minerals (Calcium 600mg + Vit D 400 Iu Tab) 1 tab PO BID [facility] Stop: 02/24/21 20:59 Last Admin: 01/29/21 20:43 Dose: 1 tab Documented by: Naloxone HCl (Naloxone Hcl 0.4 Mg/1 Ml Vial/Carp) 0.1 mg IV Q5M PRN PRN Reason: Oversedation/Resp Depression Stop: 02/27/21 14:47 Ondansetron HCl (Ondansetron Inj 2 Mg/Ml 2 Ml Vial) 4 mg IV Q6H PRN PRN Reason: Nausea And Vomiting Stop: 02/27/21 14:47 Pantoprazole Sodium (Pantoprazole 40 Mg Tab) [facility]: 02/25/21 08:59 Last Admin: 01/29/21 09:18 Dose: 40 mg Documented by: Potassium Chloride (Potassium Chloride Crtab 20 Meq Tabcr) 20 meq [facility] Stop: 02/25/21 08:59 Last Admin: 01/29/21 09:50 Dose: Not Given Documented by: Pregabalin (Pregabalin 150 Mg Cap) 150 mg PO BID [facility] Stop: 02/24/21 20:59 Last Admin: 01/29/21 20:41 Dose: 150 mg Documented by: Sennosides (Senna 8.6 Mg Tab) 17.2 mg PO [facility] Stop: 02/27/21 20:59 Last Admin: 01/29/21 20:41 Dose: 17.2 mg Documented by: Tapentadol (Tapentadol Hcl Er 50 Mg Tabcr) 50 mg PO Q12 [facility] Stop: 02/11/21 20:59 Last Admin: 01/29/21 20:41 Dose: 50 mg Documented by: Tramadol HCl (Tramadol Hcl 50 Mg Tablet) 50 mg PO Q6H PRN PRN Reason: pain (mild-moderate) Stop: 02/24/21 15:18 Last Admin: 01/29/21 05:50 Dose: 50 mg Documented by: Trazodone HCl (Trazodone Hcl 100 Mg Tab) 100 mg PO [facility] Stop: 02/24/21 20:59 Last Admin: 01/29/21 20:42 Dose: 100 mg Documented by: Zinc Sulfate (Zinc Sulfate 220 Mg Capsule) [facility] Stop: 02/25/21 08:59 Last Admin: 01/29/21 09:18 Dose: 220 mg Documented by:
[2021-01-30] MEDS: MULTIVITAMIN TAB PO SCH (09:11)
[2021-01-30] MEDS: ZINC SULFATE 220 MG CAPSULE PO SCH (09:11)
[2021-01-30] MEDS: DULoxetine HCL 60 MG CAP PO SCH (09:11)
[2021-01-30] MEDS: POTASSIUM CHLORIDE CRTAB 20 MEQ TABCR PO SCH (09:11)
[2021-01-30] MEDS: FERROUS SULFATE 325 MG TAB PO SCH (09:11)
[2021-01-30] MEDS: ASCORBIC ACID 500 MG TAB PO SCH ×2 (09:11→17:47)
[2021-01-30] MEDS: buPROPion HCl 100 MG TABLET PO SCH ×2 (09:12→20:44)
[2021-01-30] MEDS: PANTOprazole 40 MG TAB PO SCH (09:12)
[2021-01-30] MEDS: PREGABALIN 150 MG CAP PO SCH ×2 (09:12→20:44)
[2021-01-30] MEDS: DOCUSATE SODIUM 100 MG CAP PO SCH ×2 (09:12→20:40)
[2021-01-30] MEDS: CALCIUM 600MG + VIT D 400 IU TAB PO SCH ×2 (09:12→20:44)
[2021-01-30] MEDS: FUROSEMIDE 40 MG TAB PO SCH (09:12)
[2021-01-30] MEDS: TAPENTADOL HCL ER 50 MG TABCR PO SCH ×2 (09:12→20:44)
[2021-01-30] MEDS: ASPIRIN 81 MG ECTAB PO SCH ×2 (09:12→20:44)
--- NOTE | 2021-01-30 09:41 | Progress Notes ---
DATE OF SERVICE: 01/30/2021. SUBJECTIVE: A 56-year-old female postoperative day 2 from I and D and polyethylene exchange for an i nfected total knee arthroplasty. She is doing well. Continues to say she is feeling quite a bit bet ter. No chest pain or shortness of breath. Not feeling dizzy or lightheaded. Therapy is going reas onably well. OBJECTIVE: VITAL SIGNS: Temperature 36.7. Vital signs are stable. GENERAL: Shows a pleasant middle-aged female. Sitting up in her bed, looks pretty comfortable. EXTREMITIES: Examination of the left leg reveals the leg to be well aligned. Dressing is clean, dry and intact. Patient can dorsiflex and plantarflex her foot appropriately. She can do a straight le g raise. LABORATORY DATA: Hemoglobin 8.3. Hematocrit 26.4. Electrolytes are stable. ASSESSMENT: A 56-year-old white female postop day 2 from I and D and polyethylene exchange for an in fected knee replacement. She is doing pretty well. Cultures continue to be no growth to date. I taylor spect the cultures probably will not grow anything considering everything and that she has been on an tibiotics before surgery. We will likely need to treat her empirically most likely with vancomycin. She apparently has an ID consult in for today and we will see what their recommendations are. PLAN: 1. DVT prophylaxis include thigh-high TEDs, SCDs, and aspirin twice a day. 2. PT/OT. She can weight bear as tolerated, left lower extremity. 3. Pain control. Seems to be doing pretty well with current pain regimen. 4. Antibiotic management. She is going to need 6 weeks of IV antibiotics. We will wait and see bernie eastman the infectious disease recommendations are, but I think most likely she will need long-term, 6 week s of IV vancomycin. She will need her peak and troughs and the BUN and creatinine followed by a [facility] doctor. 5. Disposition: She is orthopedically okay for discharge any time IV outpatient antibiotics can be arranged. Any orthopedic questions can be directed to me at [phone]. Job ID: [id number]
[2021-01-30] MEDS: cefTRIAXone SODIUM 2,000 MG in DEXTROSE 5% 50 ML IV SCH (11:29)
[2021-01-30] MEDS ORDERED: VANCOMYCIN TROUGH ONE (13:30)
--- NOTE | 2021-01-30 15:02 | Pharmacy Report ---
Pharmacy Vanc AUC Short Note - Date of Service January 30, 2021 - Assessment & Plan Assessment 56 year old F receiving Vancomycin and Ceftriaxone for treatment of infected TKA. * Day #6 of antimicrobial therapy * Cultures with no growth to date Plan Vancomycin * AUC/SAIMA is the preferred PK/PD target for vancomycin * AUC guided dosing is effective and associated with decreased risk of nephrotoxicity compared to traditional trough targets * Trough level of 22.1 mcg/mL is supratherapeutic * Change to 1250 mg IV every 12 hours * Trough level ordered for Saturday. Pharmacy will continue to follow and will adjust dose/frequency as necessary. Thank you.
[2021-01-30] MEDS ORDERED: FLUCONAZOLE 50 MG TAB PO ONE (18:00)
[2021-01-30] MEDS: SENNA 8.6 MG TAB PO SCH (20:40)
[2021-01-30] MEDS: traZODone HCL 100 MG TAB PO SCH (20:45)
[2021-01-31] MEDS: ACETAMINOPHEN 500 MG TAB PO SCH ×3 (05:22→21:57)
[2021-01-31] MEDS: VANCOMYCIN HCL 1,250 MG in SODIUM CHLORIDE 0.9% 250 ML IV SCH ×2 (05:22→18:23)
[2021-01-31] MEDS: HYDROmorphone HCL 2 MG TAB PO PRN ×2 (05:22→16:59)
[2021-01-31] MEDS: LEVOTHYROXINE SODIUM 175 MCG TABLET PO SCH (05:22)
[2021-01-31] MEDS: ASCORBIC ACID 500 MG TAB PO SCH ×2 (08:52→16:58)
[2021-01-31] MEDS: POTASSIUM CHLORIDE CRTAB 20 MEQ TABCR PO SCH (08:52)
[2021-01-31] MEDS: ASPIRIN 81 MG ECTAB PO SCH ×2 (08:52→19:43)
[2021-01-31] MEDS: DULoxetine HCL 60 MG CAP PO SCH (08:52)
[2021-01-31] MEDS: FUROSEMIDE 40 MG TAB PO SCH (08:52)
[2021-01-31] MEDS: buPROPion HCl 100 MG TABLET PO SCH ×2 (08:52→19:55)
[2021-01-31] MEDS: FERROUS SULFATE 325 MG TAB PO SCH (08:52)
[2021-01-31] MEDS: MULTIVITAMIN TAB PO SCH (08:52)
[2021-01-31] MEDS: ZINC SULFATE 220 MG CAPSULE PO SCH (08:52)
[2021-01-31] MEDS: CALCIUM 600MG + VIT D 400 IU TAB PO SCH ×2 (08:52→19:54)
[2021-01-31] MEDS: PANTOprazole 40 MG TAB PO SCH (08:52)
--- NOTE | 2021-01-31 08:52 | Hospitalist Progress Note ---
Date of Service January 31, 2021 Assessment & Plan (1) Cellulitis: Plan: Infection of Left TKA - Failure of outpatient antibiotic treatment with Keflex and Bactrim, skin outlined with marker and dated - hx of Left TKA 2 yrs ago. - Started on IV Rocephin at outpatient [facility] on 01/24, continue Rocephin IV and Vancomycin IV - Follow BCx x 2, WBC 11.23. No area for poss. wound culture. - ESR 46, CRP 14.1, negative procal - US for DVT is negative - was started on Eliquis on 01/22 for her hx of DVT as outpatient but now finished starter pack. No need to continue. - Negative Lymes and anaplasmosis testing - CT LLE knee - IMPRESSION: 1. Total joint arthroplasty with patellar resurfacing. Artifact from the hardware limits the study. 2. No acute fracture or malalignment identified. 3. Moderate joint effusion. 4. Nonspecific subcutaneous edema of the lower leg with posterior skin thickening. Venous stasis, cellulitis or lymphedema considered. 5. Lower extremity varicosities. 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 Lemon) given hx of TKA - s/p aspiration of left knee - about 60 mL of cloudy yellow fluid obtained, WBC > 17,000 - Culture from the fluid currently pending - suggesting inflammatory fluid and likely a knee joint infection - This all started from cellulitis in the left leg. She has had problems with cellulitis and infection in this leg in the past. - now s/p I&D and component retention w/ Dr. Lemon (01/28/2021) (Surgeon discussed with the pt success rate probably 40-50%). Pt really wants to avoid any additional surgery and wants to give a trial of the irrigation, debridement and poly exchange and component retention. - plan for likely IV Abx for 6 weeks - ID consulted - eval pending 01/31 -clinically patient is much improved, after surgery she was able to move her knee better. Erythema is completely resolved. Incision is clean, dry, without any drainage. Acute on chronic anemia, blood loss anemia, dilutional Pre-op hemoglobin 10.5, now down to 8.3 (overall stable from yesterday) At home on iron supplements for iron deficiency anemia, continue iron Patient is asymptomatic, no need for blood transfusion, blood loss post-op expected Continue to closely monitor H&H (2) LEENA (obstructive sleep apnea): Plan: - can use home cpap (3) Hypothyroidism: Plan: - Cont levothyroxine 175 mcg daily (4) Depression: Plan: - Continue wellbutrin and Cymbalta (5) Anxiety: Plan: - cont hydroxyzine prn (6) UTI (urinary tract infection): Plan: - Started on bactrim for UTI on 01/24, UA does not appear to be grossly infected, follow culture. Hold PO antibiotics, po as above. Pt does not endorse urinary symptoms currently. (7) Obesity: Plan: - BMI of 47, encourage lifestyle medications after discharge DVT ppx: - teds, scds, heparin subq CODE: Full Dispo: From home, likely to remain in the hospital x 2 days Admission and Anticipated Discharge Date Admission Date: January 25, 2021 Subjective Patient seen for follow-up of left lower extremity cellulitis, possible i nfection of left TKA Currently sitting up in bed, in no distress No chest pain or shortness of breath no abdominal pain Seen by orthopedics and d/t concern for infection of left TKA, underwent I&D Pt reports that overall she feels better, she is able to ambulate to bathroom, and her knee feels much better Erythema completely resolved, incision is dry clean, without any drainage Review of Systems Review of Systems: All systems reviewed & are unremarkable except as noted in Subjective Physical Exam Physical Exam: General: morbidly obese F in NAD Head: Normocephalic, atraumatic ENT: PERRL, EOMI, mucous membranes moist Chest: Clear to auscultation, on room air, no adventitious breath sounds Cardiac: Regular rate and rhythm, no murmur Abdominal: NABS x 4 quadrants, soft, obese, nondistended, nontender to palpation, no rebound or guarding Extremities: LLE erythema and warmth initially extending from left ankle to medial thigh, involving scar proximal to the knee (now resolved). s/p TKA 2 years ago with separate anterior scar. + Difficulty bending knee due to pain.- now improved + induration at L knee. (Now s/p I&D of Left knee - incision clean and dry, no drainage no erythema.) RLE s/p TKA, otherwise RLE unremarkable . Psych: Normal mood and affect Neuro: AAO x 3, speech is clear, no peripheral sensory deficits, moves extremities, as above Results & Data Results & Data ([facility]) Vital Signs (Past 12 Hours) Vital Signs Temp Pulse Resp BP Pulse Ox 01/31/21 07:00 36.6 C 67 20 126/63 97 01/30/21 23:01 36.6 C 74 18 120/75 95 Laboratory Results 01/30/21 Range/Units 13:55 Vancomycin Trough 22.1 (See Comment) mcg/ml Medications Administered Current Inpatient Medications Acetaminophen (Acetaminophen 500 Mg Tab) 1,000 mg PO Q8 [facility] Stop: 02/27/21 14:59 Last Admin: 01/31/21 05:22 Dose: 1,000 mg Documented by: Al Hydrox/Mg Hydrox/Simethicone (Aluminum/Magnesium Susp 30 Ml Udc) 15 ml PO Q4H PRN PRN Reason: Heartburn Stop: 02/27/21 14:47 Ascorbic Acid (Ascorbic Acid 500 Mg Tab) 500 mg PO BIDM [facility] Stop: 02/27/21 16:59 Last Admin: 01/30/21 17:47 Dose: 500 mg Documented by: Aspirin (Aspirin 81 Mg Ectab) 81 mg PO BID [facility] Stop: 02/27/21 20:59 Last Admin: 01/30/21 20:44 Dose: 81 mg Documented by: Bisacodyl (Bisacodyl 10 Mg Supp) 10 mg MO DAILY PRN PRN Reason: Constipation Stop: 02/27/21 14:47 Bupropion HCl (Bupropion Hcl 100 Mg Tablet) 100 mg PO BID [facility] Stop: 02/24/21 20:59 Last Admin: 01/30/21 20:44 Dose: 100 mg Documented by: Diphenhydramine HCl (Diphenhydramine Capsule 25 Mg Cap) 25 mg PO Q8H PRN PRN Reason: Itching Stop: 02/27/21 14:47 Docusate Sodium (Docusate Sodium 100 Mg Cap) 100 mg PO BID [facility] Stop: 02/27/21 20:59 Last Admin: 01/30/21 20:40 Dose: Not Given Documented by: Duloxetine HCl (Duloxetine Hcl 60 Mg Cap) 60 mg PO QAM [facility] Stop: 02/25/21 08:59 Last Admin: 01/30/21 09:11 Dose: 60 mg Documented by: Ferrous Sulfate (Ferrous Sulfate 325 Mg Tab) 325 mg PO [facility] Stop: 02/25/21 08:59 Last Admin: 01/30/21 09:11 Dose: 325 mg Documented by: Furosemide (Furosemide 40 Mg Tab) 40 mg PO [facility] Stop: 02/25/21 08:59 Last Admin: 01/30/21 09:12 Dose: 40 mg Documented by: Hydromorphone HCl (Hydromorphone Inj 0.5 Mg/0.5 Ml Syr) 0.5 mg IV Q4H PRN PRN Reason: Pain or Pre PT Stop: 02/11/21 14:47 Last Admin: 01/28/21 19:47 Dose: 0.5 mg Documented by: Hydromorphone HCl (Hydromorphone Hcl 2 Mg Tab) 2 mg PO Q4H PRN PRN Reason: Pain (severe) Stop: 02/11/21 17:37 Last Admin: 01/31/21 05:22 Dose: 2 mg Documented by: Hydroxyzine HCl (Hydroxyzine Hcl 25 Mg Tab) 25 mg PO TID PRN PRN Reason: Anxiety Stop: 02/24/21 15:18 Ceftriaxone Sodium 2,000 mg/ (Dextrose) 70 mls @ 140 mls/hr IV Q24H [facility]; Protocol Stop: 02/02/21 10:59 Last Infusion: 01/30/21 12:25 Dose: Infused Documented by: Vancomycin HCl 1,250 mg/ (Sodium Chloride) 275 mls @ 200 mls/hr IV Q12H [facility] Stop: 03/13/21 17:59 Last Infusion: 01/31/21 06:45 Dose: Infused Documented by: Levothyroxine Sodium (Levothyroxine Sodium 175 Mcg Tablet) [facility]: 02/25/21 06:29 Last Admin: 01/31/21 05:22 Dose: 175 mcg Documented by: Magnesium Hydroxide (Magnesium Hydroxide Susp 30 Ml Udc) 30 ml PO Q6H PRN PRN Reason: Constipation Stop: 02/27/21 14:47 Metoclopramide HCl (Metoclopramide Hcl Inj 5 Mg/Ml 2 Ml Vial) 10 mg IV Q6H PRN PRN Reason: Nausea And Vomiting Stop: 02/27/21 14:47 Miscellaneous Information (Vancomycin Consult Active) 1 ea N/A UD PRN PRN Reason: Consult Stop: 02/24/21 15:18 Multivitamins (Multivitamin Tab) 1 tab PO QAM [facility] Stop: 02/25/21 08:59 Last Admin: 01/30/21 09:11 Dose: 1 tab Documented by: Multivitamins/Minerals (Calcium 600mg + Vit D 400 Iu Tab) 1 tab PO BID [facility] Stop: 02/24/21 20:59 Last Admin: 01/30/21 20:44 Dose: 1 tab Documented by: Naloxone HCl (Naloxone Hcl 0.4 Mg/1 Ml Vial/Carp) 0.1 mg IV Q5M PRN PRN Reason: Oversedation/Resp Depression Stop: 02/27/21 14:47 Ondansetron HCl (Ondansetron Inj 2 Mg/Ml 2 Ml Vial) 4 mg IV Q6H PRN PRN Reason: Nausea And Vomiting Stop: 02/27/21 14:47 Pantoprazole Sodium (Pantoprazole 40 Mg Tab) 40 mg PO QAM [facility] Stop: 02/25/21 08:59 Last Admin: 01/30/21 09:12 Dose: 40 mg Documented by: Potassium Chloride (Potassium Chloride Crtab 20 Meq Tabcr) [facility] [place] Stop: 02/25/21 08:59 Last Admin: 01/30/21 09:11 Dose: 20 meq Documented by: Pregabalin (Pregabalin 150 Mg Cap) 150 mg PO BID [facility] Stop: 02/24/21 20:59 Last Admin: 01/30/21 20:44 Dose: 150 mg Documented by: Sennosides (Senna 8.6 Mg Tab) 17.2 mg PO HS [facility] Stop: 02/27/21 20:59 Last Admin: 01/30/21 20:40 Dose: Not Given Documented by: Tapentadol (Tapentadol Hcl Er 50 Mg Tabcr) 50 mg PO Q12 [facility] Stop: 02/11/21 20:59 Last Admin: 01/30/21 20:44 Dose: 50 mg Documented by: Tramadol HCl (Tramadol Hcl 50 Mg Tablet) 50 mg PO Q6H PRN PRN Reason: pain (mild-moderate) Stop: 02/24/21 15:18 Last Admin: 01/29/21 05:50 Dose: 50 mg Documented by: Trazodone HCl (Trazodone Hcl 100 Mg Tab) 100 mg PO [facility] Stop: 02/24/21 20:59 Last Admin: 01/30/21 20:45 Dose: 100 mg Documented by: Zinc Sulfate (Zinc Sulfate 220 Mg Capsule) [facility] [place] Stop: 02/25/21 08:59 Last Admin: 01/30/21 09:11 Dose: 220 mg Documented by:
[2021-01-31] MEDS: DOCUSATE SODIUM 100 MG CAP PO SCH ×2 (08:53→19:54)
[2021-01-31] MEDS: TAPENTADOL HCL ER 50 MG TABCR PO SCH ×2 (09:17→20:03)
[2021-01-31] MEDS: traMADol HCL 50 MG TABLET PO PRN ×2 (09:17→21:57)
[2021-01-31] MEDS: PREGABALIN 150 MG CAP PO SCH ×2 (09:17→20:03)
[2021-01-31 09:49] LABS: Hematocrit (blood only) 29.1 % (37-47); Hemoglobin 9.3 g/dL (12.0-16.0)
[2021-01-31 10:12] LABS: BUN Creatinine Ratio 20.4 (10-20); C Reactive Protein 4.23 mg/dl (0-0.29); Calcium 8.3 mg/dl (8.5-10.1); Creatinine Clr Calc Pharmacy 145.9 ml/min; Est GFR (African American) 114.2 ml/min; Est GFR (Non-African American) 98.6 ml/min; Potassium 4.3 mmol/L (3.5-5.1)
[2021-01-31] MEDS: cefTRIAXone SODIUM 2,000 MG in DEXTROSE 5% 50 ML IV SCH (11:06)
--- NOTE | 2021-01-31 19:04 | Progress Notes ---
DATE OF NOTE: 01/31/2021. SUBJECTIVE: A 56-year-old female postop day 3 from I and D and polyethylene exchange for a septic kn ee around the cellulitic area. She is doing pretty well. Pain is controlled. Just waiting for infe ctious disease final recommendations. No other complaints. OBJECTIVE: VITAL SIGNS: Temperature 36.7. Vital signs are stable. GENERAL: Shows a pleasant middle-aged female. She is lying in bed, looks pretty comfortable. EXTREMITIES: Examination of the left leg reveals the dressing is clean, dry and intact. No detectab le drainage. She can do a straight leg raise. She can dorsiflex and plantarflex her foot appropriat cece. There is no detectable cellulitis at this time. Just a little bit of inferior wound drainage. LABORATORY DATA: Hemoglobin 9.3. Hematocrit 29.1. Electrolytes are stable. Her C-reactive protein is down to 4.23. CULTURE RESULTS: Show no growth so far today. ASSESSMENT: A 56-year-old white female, more than 2 years out from a left knee replacement complicat ed by an acute infection, likely from the cellulitis. Cultures are no growth, which are not surprisi ng considering she has been on antibiotics before surgery. I think it is highly likely that these wi ll not grow anything, but we do have them scheduled to grow out for 14 days. We will have to use an empiric antibiotic treatment. PLAN: 1. DVT prophylaxis include thigh-high TEDs, SCDs, and aspirin twice a day. 2. PT/OT. She can weight bear as tolerated. She is going to therapy. 3. Infectious Disease/antibiotics. She is going to need 6 weeks of IV antibiotics. I would recomme nd she just be discharged on vancomycin as I do not think there is much in alternative. [facility] She is orthopedically okay for discharge any time medicall y stable. From my standpoint, she can be discharged on IV vancomycin. I need to see her back in 2-3 weeks out from surgery date. Any orthopedic questions can be directed to me at [phone]. Job ID: [id number]
[2021-01-31] MEDS: traZODone HCL 100 MG TAB PO SCH (19:55)
[2021-01-31] MEDS: SENNA 8.6 MG TAB PO SCH (19:55)
[2021-02-01] MEDS ORDERED: VANCOMYCIN TROUGH ONE (05:30)
[2021-02-01 05:45] LABS: Hematocrit (blood only) 29.1 % (37-47); Hemoglobin 9.4 g/dL (12.0-16.0); Mean Corpuscular Hemoglobin 30.5 pg (25-34); Mean Corpuscular Hgb Conc 32.3 g/dL (32-36); Mean Corpuscular Volume 94.5 fL (80-100); Mean Platelet Volume 7.9 fL (7.4-10.4); Platelet Count 364 K/uL (130-400); RDW Coefficient of Variation 14.1 % (11.5-14.5); RDW Standard Deviation 47.9 fL (36.4-46.3); Red Blood Count 3.08 M/uL (4.2-5.4); White Blood Count 6.85 K/uL (4.8-10.8)
[2021-02-01] MEDS: ACETAMINOPHEN 500 MG TAB PO SCH ×3 (05:59→21:40)
[2021-02-01] MEDS: LEVOTHYROXINE SODIUM 175 MCG TABLET PO SCH (05:59)
[2021-02-01] MEDS: VANCOMYCIN HCL 1,250 MG in SODIUM CHLORIDE 0.9% 250 ML IV SCH (05:59)
[2021-02-01] MEDS: traMADol HCL 50 MG TABLET PO PRN ×2 (06:01→14:21)
[2021-02-01 06:24] LABS: BUN Creatinine Ratio 19.9 (10-20); Calcium 8.4 mg/dl (8.5-10.1); Est GFR (Non-African American) 100.1 ml/min; Potassium 4.6 mmol/L (3.5-5.1)
--- NOTE | 2021-02-01 07:22 | Pharmacy Report ---
Pharmacy Abx Dose Short Note - Date of Service February 01, 2021 - Assessment & Plan Assessment 56 year old F receiving Vancomycin and Ceftriaxone for treatment of septic left knee * Day #8 of antimicrobial therapy. * Cultures are negative. * Awaiting ID input. For ease of outpatient administration and given patient's elevated BMI, recommend daptomycin at 6 mg/kg adjusted body weight for 6 weeks upon discharge. Plan Vancomycin * Trough level of 14.0 mcg/mL is therapeutic * However, given significant decrease in trough with changed dosing interval, worried this trend will continue until subtherapeutic * Change to 1000 mg IV every 8 hours * Goal trough level: 15 mcg/mL * Trough level ordered for 02/03/21 prior to the 0800 dose Pharmacy will continue to follow and will adjust dose/frequency as necessary. Thank you.
[2021-02-01] MEDS: ZINC SULFATE 220 MG CAPSULE PO SCH (08:53)
[2021-02-01] MEDS: POTASSIUM CHLORIDE CRTAB 20 MEQ TABCR PO SCH (08:53)
[2021-02-01] MEDS: PANTOprazole 40 MG TAB PO SCH (08:53)
[2021-02-01] MEDS: MULTIVITAMIN TAB PO SCH (08:53)
[2021-02-01] MEDS: FUROSEMIDE 40 MG TAB PO SCH (08:53)
[2021-02-01] MEDS: TAPENTADOL HCL ER 50 MG TABCR PO SCH ×2 (08:53→20:31)
[2021-02-01] MEDS: FERROUS SULFATE 325 MG TAB PO SCH (08:53)
[2021-02-01] MEDS: ASCORBIC ACID 500 MG TAB PO SCH ×2 (08:54→16:27)
[2021-02-01] MEDS: CALCIUM 600MG + VIT D 400 IU TAB PO SCH ×2 (08:54→20:32)
[2021-02-01] MEDS: buPROPion HCl 100 MG TABLET PO SCH ×2 (08:54→20:32)
[2021-02-01] MEDS: DOCUSATE SODIUM 100 MG CAP PO SCH ×2 (08:54→20:32)
[2021-02-01] MEDS: DULoxetine HCL 60 MG CAP PO SCH (08:54)
[2021-02-01] MEDS: ASPIRIN 81 MG ECTAB PO SCH ×2 (08:54→20:32)
[2021-02-01] MEDS: PREGABALIN 150 MG CAP PO SCH ×2 (09:20→20:31)
[2021-02-01] MEDS: cefTRIAXone SODIUM 2,000 MG in DEXTROSE 5% 50 ML IV SCH (11:41)
[2021-02-01] MEDS: VANCOMYCIN HCL 1,000 MG in SODIUM CHLORIDE 0.9% 250 ML IV SCH ×2 (16:27→23:44)
--- NOTE | 2021-02-01 18:38 | Hospitalist Progress Note ---
Date of Service February 01, 2021 Assessment & Plan (1) Cellulitis: Plan: Infection of Left TKA - Failure of outpatient antibiotic treatment with Keflex and Bactrim, skin outlined with marker and dated - hx of Left TKA 2 yrs ago. - Started on IV Rocephin at outpatient [facility] on 01/24, continue Rocephin IV and Vancomycin IV - Follow BCx x 2, WBC 11.23. No area for poss. wound culture. - ESR 46, CRP 14.1, negative procal - US for DVT is negative - was started on Eliquis on 01/22 for her hx of DVT as outpatient but now finished starter pack. No need to continue. - Negative Lymes and anaplasmosis testing - CT LLE knee - IMPRESSION: 1. Total joint arthroplasty with patellar resurfacing. Artifact from the hardware limits the study. 2. No acute fracture or malalignment identified. 3. Moderate joint effusion. 4. Nonspecific subcutaneous edema of the lower leg with posterior skin thickening. Venous stasis, cellulitis or lymphedema considered. 5. Lower extremity varicosities. WBC down to 8.5K, erythema improved/resolved, however patient dry can tender to palpation at knee joint, and having difficulty moving joint (left knee) Left lower extremity elevation, ice packs as needed as well Orthopedics consulted (Dr. Lemon) given hx of TKA - s/p aspiration of left knee - about 60 mL of cloudy yellow fluid obtained, WBC > 17,000 - Culture from the fluid currently pending - suggesting inflammatory fluid and likely a knee joint infection - This all started from cellulitis in the left leg. She has had problems with cellulitis and infection in this leg in the past. - now s/p I&D and component retention w/ Dr. Lemon (01/28/2021) (Surgeon discussed with the pt success rate probably 40-50%). Pt really wants to avoid any additional surgery and wants to give a trial of the irrigation, debridement and poly exchange and component retention. - plan for likely IV Abx for 6 weeks - ID consulted - pending ( will try to discuss the consult over the phone tomorr ow for recommendation) - Left lower extremity edema and erythema improved Acute on chronic anemia, blood loss anemia, dilutional Pre-op hemoglobin 10.5, down to 8.3 Hemoglobin improved to 9.4 on 01/31 Continue iron supplement Continue monitor H&H (2) LEENA (obstructive sleep apnea): Plan: - can use home cpap (3) Hypothyroidism: Plan: - Cont levothyroxine 175 mcg daily (4) Depression: Plan: - Continue wellbutrin and Cymbalta (5) Anxiety: Plan: - cont hydroxyzine prn (6) UTI (urinary tract infection): Plan: - Started on bactrim for UTI on 01/24, UA does not appear to be grossly infected, follow culture. Hold PO antibiotics, po as above. - Denies any urinary symptoms- (7) Obesity: Plan: - BMI of 47, encourage lifestyle medications after discharge DVT ppx: - teds, scds, heparin subq CODE: Full Dispo: From home, likely to remain in the hospital x 2 days Admission and Anticipated Discharge Date Admission Date: January 25, 2021 Subjective Patient was seen and examined for follow-up of the left lower extremity cellulitis Lying in bed with no acute distress watching TV She said that she is not having any pain in her left except for you knee She said that she has been walking in the hallway She said that her left lower extremity redness is much better now She has been waiting for ID consult about antibiotic on discharge Denies any fever, chills, palpitation, dizziness, shortness of breath. Physical Exam Physical Exam: General- No acute distress Head- atraumatic Eyes- PERRL, EOMI, ENT- oropharynx clear Neck- supple, no JVD Lungs- clear to auscultation Heart- regular rhythm; no murmur Abdomen- normal bowel sounds, soft, nontender Extremities- no calf tenderness, left lower extremity erythema improved, left knee incision clean and dry, no drainage no erythema overall Neuro- alert, oriented x 3; PERRL, EOMI; no facial palsy; no dysarthria Skin- warm & dry Results & Data Results & Data ([facility]) Vital Signs (Past 12 Hours) Vital Signs Temp Pulse Resp BP Pulse Ox 02/01/21 14:48 36.8 C 66 16 116/72 93 02/01/21 06:58 36.8 C 68 16 112/68 95
[2021-02-01] MEDS: traZODone HCL 100 MG TAB PO SCH (20:31)
[2021-02-01] MEDS: SENNA 8.6 MG TAB PO SCH (20:32)
[2021-02-02] MEDS: ACETAMINOPHEN 500 MG TAB PO SCH ×3 (06:03→21:16)
[2021-02-02] MEDS: LEVOTHYROXINE SODIUM 175 MCG TABLET PO SCH (06:03)
[2021-02-02] MEDS: buPROPion HCl 100 MG TABLET PO SCH ×2 (08:57→21:16)
[2021-02-02] MEDS: FUROSEMIDE 40 MG TAB PO SCH (08:57)
[2021-02-02] MEDS: PREGABALIN 150 MG CAP PO SCH ×2 (08:57→21:20)
[2021-02-02] MEDS: POTASSIUM CHLORIDE CRTAB 20 MEQ TABCR PO SCH (08:57)
[2021-02-02] MEDS: ASPIRIN 81 MG ECTAB PO SCH ×2 (08:57→21:18)
[2021-02-02] MEDS: PANTOprazole 40 MG TAB PO SCH (08:57)
[2021-02-02] MEDS: DULoxetine HCL 60 MG CAP PO SCH (08:57)
[2021-02-02] MEDS: FERROUS SULFATE 325 MG TAB PO SCH (08:57)
[2021-02-02] MEDS: ZINC SULFATE 220 MG CAPSULE PO SCH (08:57)
[2021-02-02] MEDS: TAPENTADOL HCL ER 50 MG TABCR PO SCH ×2 (08:57→21:33)
[2021-02-02] MEDS: MULTIVITAMIN TAB PO SCH (08:57)
[2021-02-02] MEDS: CALCIUM 600MG + VIT D 400 IU TAB PO SCH ×2 (08:57→21:18)
[2021-02-02] MEDS: DOCUSATE SODIUM 100 MG CAP PO SCH ×2 (08:58→21:17)
[2021-02-02] MEDS: VANCOMYCIN HCL 1,000 MG in SODIUM CHLORIDE 0.9% 250 ML IV SCH ×3 (08:58→23:21)
[2021-02-02] MEDS: ASCORBIC ACID 500 MG TAB PO SCH ×2 (08:58→16:52)
--- NOTE | 2021-02-02 11:34 | Progress Notes ---
DATE OF SERVICE: 02/02/2021. SUBJECTIVE: A 56-year-old white female, now 5 days out from an I and D and polyethylene exchange for a septic knee arthritis for total knee replacement. She continues to do pretty well. Knee is just sore. Pain manageable. No chest pain or shortness of breath. Not feeling dizzy or lightheaded. OBJECTIVE: VITAL SIGNS: Temperature 36.8. Vital signs are stable. GENERAL: Shows a pleasant middle-aged female. She was walking around her room when I visited this [facility]. EXTREMITIES: Examination of the left leg reveals incision to be well healing and well approximated. There is no drainage. Minimal swelling. She can do a straight leg raise. She can dorsiflex and pl antarflex her foot appropriately. LABORATORY DATA: Culture results continue to be no growth to date. ASSESSMENT: A 56-year-old female, now 5 days out from I and D and polyethylene exchange meniscectomy 2 years out from total knee replacement. Clinically, she is doing well. We are really just waiting for ID recommendations as far as long-term antibiotic management. PLAN: 1. DVT prophylaxis include thigh-high TEDs, SCDs, and aspirin twice a day. 2. PT/OT. She can weight bear as tolerated. Left total knee protocol. 3. Pain control, doing well with current pain regimen. 4. Disposition: She is orthopedically okay for discharge any time. We can set up for IV antibiotics . I have recommended 6 weeks of IV antibiotics, followed by oral antibiotics after that probably for 6 months. Awaiting ID recommendations. Any orthopedic questions can be directed to me at [phone]. I need to see her back in 2-3 weeks out from surgery date. Job ID: [id number]
[2021-02-02] MEDS: traMADol HCL 50 MG TABLET PO PRN ×2 (14:17→20:03)
--- NOTE | 2021-02-02 17:10 | Hospitalist Progress Note ---
Date of Service February 02, 2021 Assessment & Plan (1) Cellulitis: Plan: Infection of Left TKA Present on admission with left lower extremity erythema and swelling Failed antibiotic therapy with Keflex then Bactrim added 1 day prior to admission Hx of Left TKA 2 yrs ago. Received IM Rocephin at [facility] on 01/24 The following day presented to the ER with worsening erythema associated with fever and chills WBC on admission 11.23, ESR 46, CRP 14.1, negative procalcitonin IV Rocephin and Vanco was started on admission Blood culture remain negative CT LLE knee showed total joint arthroplasty with patellar resurfacing. Artifact from the hardware limits the study. Moderate joint effusion. Nonspecific subcutaneous edema of the lower leg with posterior skin thickening. Venous stasis, cellulitis or lymphede US for DVT is negative - was started on Eliquis on 01/22 for her hx of DVT as outpatient but now finished starter pack. No need to continue. Negative Lymes and anaplasmosis testing Orthopedic on board s/p aspiration of left knee - about 60 mL of cloudy yellow fluid obtained, WBC > 17,000 WBC down to 8.5K, erythema improved/resolved, however patient spray machine tender to palpation at knee joint, and having difficulty moving joint (left knee) suggesting inflammatory fluid and likely a knee joint infection s/p I&D and component retention w/ Dr. Lemon (01/28/2021) (Surgeon discussed with the pt success rate probably 40-50%). Pt really wants to avoid any additional surgery and wants to give a trial of the irrigation, debridement and poly exchange and component retention. IV Rocephin will discontinued on 02/01 Case discussed with infectious disease Dr. Cisse (official consult canceled since ID was backed up) that recommend 6 weeks of IV antibiotic with IV Vanco since we don't have any organism grow on blood and wound cx, and patient is doing well on it. Negative culture might be due to prior antibiotic therapy As per ID it is difficult to know what PO abx to transition after completing the 6 weeks IV Vanco since we have no organism to target. But in general if you are using vancomycin, suppression showing be something that cover MRSA such as doxy, Bactrim or Clinda. As per ID the definitive treatment is not antibiotic but removal of hardware Patient is not too happy about the 6-week IV antibiotic since planning to go to a trip for [address] Lemon was notified Prescription given to case management to arrange for Vanco infusion outpatient Patient is a little bit reluctant to have the PICC line placed and would like to speak to Ortho Dr. Lemon before placing it Clinically improved significantly Acute on chronic anemia, blood loss anemia, dilutional Hemoglobin 10.5, down to 8.3 Hemoglobin improved to 9.4 on 01/31 Continue iron supplement Continue monitor H&H (2) LEENA (obstructive sleep apnea): Plan: - can use home cpap (3) Hypothyroidism: Plan: - Cont levothyroxine 175 mcg daily (4) Depression: Plan: - Continue wellbutrin and Cymbalta (5) Anxiety: Plan: - cont hydroxyzine prn (6) UTI (urinary tract infection): Plan: - Started on bactrim for UTI on 01/24, UA does not appear to be grossly infected, follow culture. Hold PO antibiotics, po as above. - Denies any urinary symptoms- (7) Obesity: Plan: - BMI of 47, encourage lifestyle medications after discharge B12 deficiency Scheduled to get B12 IM next week. we will try to give the IM B12 while in the hospital DVT ppx: - teds, scds, heparin subq CODE: Full Disposition We will discharge when case management able to arrange antibiotic infusion outpatient Admission and Anticipated Discharge Date Admission Date: January 25, 2021 Subjective Patient was seen and examined for follow-up on left lower extremity cellulitis and knee infection Lying in bed with no distress watching TV Patient said that she is able to walk around with no discomfort in the left knee Spoke to infectious disease in [place] Dr. Cisse about antibiotic therapy on discharge Patient denies any chest pain, palpitation, dizziness, shortness of breath. Physical Exam Physical Exam: General- No acute distress Head- atraumatic Eyes- PERRL, EOMI, ENT- oropharynx clear Neck- supple, no JVD Lungs- clear to auscultation Heart- regular rhythm; no murmur Abdomen- normal bowel sounds, soft, nontender Extremities- no calf tenderness, left lower extremity erythema improved, left knee incision clean and dry, no drainage no erythema overall Neuro- alert, oriented x 3; PERRL, EOMI; no facial palsy; no dysarthria Skin- warm & dry Results & Data Results & Data ([facility]) Vital Signs (Past 12 Hours) Vital Signs Temp Pulse Resp BP Pulse Ox 02/02/21 14:39 36.7 C 75 16 111/69 92 02/02/21 07:23 36.8 C 73 16 101/64 96
[2021-02-02] MEDS: traZODone HCL 100 MG TAB PO SCH (21:16)
[2021-02-02] MEDS: SENNA 8.6 MG TAB PO SCH ×2 (21:17→21:21)
[2021-02-03] MEDS: ACETAMINOPHEN 500 MG TAB PO SCH ×3 (05:24→21:14)
[2021-02-03] MEDS: traMADol HCL 50 MG TABLET PO PRN ×3 (05:24→21:14)
[2021-02-03] MEDS: LEVOTHYROXINE SODIUM 175 MCG TABLET PO SCH (05:24)
[2021-02-03] MEDS ORDERED: VANCOMYCIN TROUGH ONE (07:30)
[2021-02-03] MEDS: ASCORBIC ACID 500 MG TAB PO SCH ×2 (08:10→19:23)
[2021-02-03] MEDS: TAPENTADOL HCL ER 50 MG TABCR PO SCH ×2 (08:10→21:14)
[2021-02-03] MEDS: ASPIRIN 81 MG ECTAB PO SCH ×2 (08:11→21:49)
[2021-02-03] MEDS: buPROPion HCl 100 MG TABLET PO SCH ×2 (08:11→21:49)
[2021-02-03] MEDS: CALCIUM 600MG + VIT D 400 IU TAB PO SCH ×2 (08:12→21:49)
[2021-02-03] MEDS: DOCUSATE SODIUM 100 MG CAP PO SCH ×2 (08:13→20:22)
[2021-02-03] MEDS: DULoxetine HCL 60 MG CAP PO SCH (08:13)
[2021-02-03] MEDS: FERROUS SULFATE 325 MG TAB PO SCH (08:13)
[2021-02-03] MEDS: FUROSEMIDE 40 MG TAB PO SCH (08:13)
[2021-02-03] MEDS: ZINC SULFATE 220 MG CAPSULE PO SCH (08:14)
[2021-02-03] MEDS: PANTOprazole 40 MG TAB PO SCH (08:14)
[2021-02-03] MEDS: MULTIVITAMIN TAB PO SCH (08:14)
[2021-02-03] MEDS: POTASSIUM CHLORIDE CRTAB 20 MEQ TABCR PO SCH (08:22)
[2021-02-03] MEDS: PREGABALIN 150 MG CAP PO SCH ×2 (08:23→21:14)
[2021-02-03 08:34] LABS: Creatinine Clr Calc Pharmacy 145.9 ml/min; Est GFR (African American) 114.2 ml/min; Est GFR (Non-African American) 98.6 ml/min
--- NOTE | 2021-02-03 08:54 | Progress Notes ---
DATE OF NOTE: 02/03/2021. SUBJECTIVE: A 56-year-old female postop day 6 from I and D and polyethylene exchange for infected kn ee 2 years out from surgery. She is doing pretty well. She says her knee is a bit sore this morning . No new complaints. No chest pain or shortness of breath. We did finally get the ID relationship consultant fr lonnie Jimenez yesterday. OBJECTIVE: VITAL SIGNS: Temperature 36.7. Vital signs are stable. GENERAL: Shows a pleasant middle-aged female. She is lying in bed, looks pretty comfortable. EXTREMITIES: Examination of the left leg reveals the leg to be well aligned. Dressings clean, dry a nd intact. She can do a straight leg raise. No significant drainage. LABORATORY DATA: Culture results continue to be no growth. ASSESSMENT: A 56-year-old female 2 years out from a total knee replacement complicated by lower extr emity cellulitis recently and an acutely septic knee. She is 6 days out from I and D and polyethylen e exchange and doing pretty well. Pain seems to be getting better. Wound looks good. PLAN: 1. DVT prophylaxis include thigh-high TEDs, SCDs, and aspirin twice a day for the next 6 weeks. 2. PT/OT. She can weight bear as tolerated. Left total knee protocol. 3. Antibiotic management. We received ID recommendations. They recommend 6 weeks of IV vancomycin, which is what I suspected and I think is appropriate. We will convert her to p.o. antibiotics after that. She is hopefully going to get a PICC line today and I talked to her about that and I think th at is in her best interest. She asked me about switching to p.o. antibiotics earlier and I think dasha t is unwise, but is certainly up to her. We would recommend 6 weeks of IV, I need to see her back so mewhere between 2 and 3 weeks out from surgery. 4. Pain management seems to be doing okay with current pain control. 5. Disposition: She is orthopedically okay for discharge any time. IV antibiotics can be set up. Any orthopedic questions can be directed to me at [phone]. Job ID: [id number]
--- NOTE | 2021-02-03 08:54 | Pharmacy Report ---
Pharmacy Abx Dose Short Note - Date of Service February 03, 2021 - Assessment & Plan Assessment 56 year old F receiving Vancomycin for treatment of LLE cellulitis * Day #9 of antimicrobial therapy. * Attending spoke with Tony COSTA yesterday who recommended 6 weeks of IV Vancomycin * Start: 01/25/21 & End: 03/08/21 Plan Vancomycin * Trough level of 16.2 mcg/mL is therapeutic * Patient has been on 1000 mg IV every 8 hours which is a total daily dose of 3000 mg. For ease of administration as an outpatient, will change dose to 1500 mg IV every 12 hours today (still 3000 mg total daily dose). No further troughs will be ordered inpatient. * Upon discharge: * Recommend Vancomycin 1500 mg IV every 12 hours * Recommend weekly SCr, CBC, and Vancomycin trough (30 mins prior to next dose) every Saturday until therapy complete. * Please feel free to contact pharmacy with any questions/concerns. Pharmacy will continue to follow and will adjust dose/frequency as necessary. Thank you.
[2021-02-03] MEDS ORDERED: CYANOCOBALAMIN 1000 MCG/ML VIAL IM SCH (09:00)
[2021-02-03] MEDS: VANCOMYCIN HCL 1,500 MG in SODIUM CHLORIDE 0.9% 500 ML IV SCH ×2 (12:48→21:49)
--- NOTE | 2021-02-03 17:45 | Hospitalist Progress Note ---
Date of Service February 03, 2021 Assessment & Plan (1) Cellulitis: Plan: Infection of Left TKA Present on admission with left lower extremity erythema and swelling Failed antibiotic therapy with Keflex then Bactrim added 1 day prior to admission Hx of Left TKA 2 yrs ago. Received IM Rocephin at [facility] on 01/24 The following day presented to the ER with worsening erythema associated with fever and chills WBC on admission 11.23, ESR 46, CRP 14.1, negative procalcitonin IV Rocephin and Vanco was started on admission Blood culture remain negative CT LLE knee showed total joint arthroplasty with patellar resurfacing. Artifact from the hardware limits the study. Moderate joint effusion. Nonspecific subcutaneous edema of the lower leg with posterior skin thickening. Venous stasis, cellulitis or lymphede US for DVT is negative - was started on Eliquis on 01/22 for her hx of DVT as outpatient but now finished starter pack. No need to continue. Negative Lymes and anaplasmosis testing Orthopedic on board s/p aspiration of left knee - about 60 mL of cloudy yellow fluid obtained, WBC > 17,000 WBC down to 8.5K, erythema improved/resolved, however patient tankroom tender to palpation at knee joint, and having difficulty moving joint (left knee) suggesting inflammatory fluid and likely a knee joint infection s/p I&D and component retention w/ Dr. Lemon (01/28/2021) (Surgeon discussed with the pt success rate probably 40-50%). Pt really wants to avoid any additional surgery and wants to give a trial of the irrigation, debridement and poly exchange and component retention. IV Rocephin will discontinued on 02/01 Case discussed with infectious disease Dr. Cisse (official consult canceled since ID was backed up) that recommend 6 weeks of IV antibiotic with IV Vanco since we don't have any organism grow on blood and wound cx, and patient is doing well on it. Negative culture might be due to prior antibiotic therapy As per ID it is difficult to know what PO abx to transition after completing the 6 weeks IV Vanco since we have no organism to target. But in general if you are using vancomycin, suppression showing be something that cover MRSA such as doxy, Bactrim or Clinda. Check Vanco trough in 1 week, goal 15-20. As per ID the definitive treatment is not antibiotic but removal of hardware Patient is not too happy about the 6-week IV antibiotic since planning to go to a trip for 2 weeks Prescription given to case management to arrange for Vanco infusion outpatient Patient is a little bit reluctant to have the PICC line placed and would like to speak to Ortho Dr. Lemon before placing it Patient spoke to Dr. Lemon earlier and agreed to proceed with the PICC line placement Patient will need weekly Vanco trough CBC and BMP Consent obtained and signed Clinically improved significantly Acute on chronic anemia, blood loss anemia, dilutional Hemoglobin 10.5, down to 8.3 Hemoglobin improved to 9.4 on 01/31 Continue iron supplement Continue monitor H&H (2) LEENA (obstructive sleep apnea): Plan: - can use home cpap (3) Hypothyroidism: Plan: - Cont levothyroxine 175 mcg daily (4) Depression: Plan: - Continue wellbutrin and Cymbalta (5) Anxiety: Plan: - cont hydroxyzine prn (6) UTI (urinary tract infection): Plan: - Started on bactrim for UTI on 01/24, UA does not appear to be grossly infected, follow culture. Hold PO antibiotics, po as above. - Denies any urinary symptoms- (7) Obesity: Plan: - BMI of 47, encourage lifestyle medications after discharge B12 deficiency Status post B12 injection this morning Stable DVT ppx: - teds, scds, heparin subq CODE: Full Disposition Plan to discharge tomorrow Admission and Anticipated Discharge Date Admission Date: January 25, 2021 Subjective Patient was seen and examined for follow-up on left lower extremity cellulitis and knee infection Sitting in chair with no distress watching TV She was able to speak with Dr. Lemon and patient agreed to proceed with the PICC line placement Patient denies any chest pain, palpitation, dizziness, shortness of breath. Review of Systems Review of Systems: Constitutional: +fever, +sweats, no chills Eyes: No diplopia, no worsening or blurred vision ENT: normal hearing, no trouble swallowing Respiratory: No cough, sputum, dyspnea at rest or on exertion Cardiovascular: No chest pain, tightness or palpitations Abdomen: No pain, nausea, vomiting, diarrhea or constipation Musculoskeletal: Left leg as per HPI, otherwise no joint pain, calf pain, or swelling Neurologic: No weakness, numbness/tingling, or balance problems - required using walker due to LLE pain in past 24 hrs. Psychiatric: Hx of anxiety or depression on medication Skin: erythematous LLE as per HPI. Otherwise warm and dry. Physical Exam Physical Exam: General- No acute distress Head- atraumatic Eyes- PERRL, EOMI, ENT- oropharynx clear Neck- supple, no JVD Lungs- clear to auscultation Heart- regular rhythm; no murmur Abdomen- normal bowel sounds, soft, nontender Extremities- no calf tenderness, left lower extremity erythema improved, left knee incision clean and dry, no drainage no erythema overall Neuro- alert, oriented x 3; PERRL, EOMI; no facial palsy; no dysarthria Skin- warm & dry Results & Data Results & Data ([facility]) Vital Signs (Past 12 Hours) Vital Signs Temp Pulse Resp BP Pulse Ox 02/03/21 16:47 36.8 C 65 16 131/80 100 02/03/21 07:52 36.8 C 67 16 103/54 L 97
[2021-02-03] MEDS: VANCOMYCIN HCL 1,000 MG in SODIUM CHLORIDE 0.9% 250 ML IV SCH (18:58)
[2021-02-03] MEDS: SENNA 8.6 MG TAB PO SCH (20:22)
[2021-02-03] MEDS: traZODone HCL 100 MG TAB PO SCH (21:49)
[2021-02-04] MEDS: ACETAMINOPHEN 500 MG TAB PO SCH ×3 (06:27→21:57)
[2021-02-04] MEDS: LEVOTHYROXINE SODIUM 175 MCG TABLET PO SCH (07:10)
[2021-02-04] MEDS: traMADol HCL 50 MG TABLET PO PRN ×2 (07:16→13:23)
[2021-02-04] MEDS: ASPIRIN 81 MG ECTAB PO SCH ×2 (08:04→19:57)
[2021-02-04] MEDS: PREGABALIN 150 MG CAP PO SCH ×2 (08:04→21:57)
[2021-02-04] MEDS: CALCIUM 600MG + VIT D 400 IU TAB PO SCH ×2 (08:04→19:57)
[2021-02-04] MEDS: PANTOprazole 40 MG TAB PO SCH (08:05)
[2021-02-04] MEDS: POTASSIUM CHLORIDE CRTAB 20 MEQ TABCR PO SCH (08:05)
[2021-02-04] MEDS: buPROPion HCl 100 MG TABLET PO SCH ×2 (08:05→19:57)
[2021-02-04] MEDS: ASCORBIC ACID 500 MG TAB PO SCH ×2 (08:05→18:09)
[2021-02-04] MEDS: FUROSEMIDE 40 MG TAB PO SCH (08:06)
[2021-02-04] MEDS: DOCUSATE SODIUM 100 MG CAP PO SCH ×2 (08:07→19:57)
[2021-02-04] MEDS: ZINC SULFATE 220 MG CAPSULE PO SCH (08:07)
[2021-02-04] MEDS: MULTIVITAMIN TAB PO SCH (08:07)
[2021-02-04] MEDS: FERROUS SULFATE 325 MG TAB PO SCH (08:08)
[2021-02-04] MEDS: DULoxetine HCL 60 MG CAP PO SCH (08:08)
[2021-02-04] MEDS: TAPENTADOL HCL ER 50 MG TABCR PO SCH ×2 (08:14→21:57)
[2021-02-04] MEDS: VANCOMYCIN HCL 1,500 MG in SODIUM CHLORIDE 0.9% 500 ML IV SCH ×2 (08:14→20:00)
--- NOTE | 2021-02-04 08:39 | Progress Notes ---
DATE OF NOTE: 02/04/2021. SUBJECTIVE: A 56-year-old white female now 1 week out from I and D and polyethylene exchange of left infected knee replacement. She is doing pretty well. She is having a little bit more swelling over the past couple of days in her lower leg. Pain is controlled. No drainage. No fevers. No chest p ain or shortness of breath. OBJECTIVE: VITAL SIGNS: Temperature 36.7. Vital signs stable. GENERAL: Physical examination shows a pleasant middle-aged female. She is lying in bed, looks prett y comfortable. EXTREMITIES: Examination of the left leg reveals the dressing is clean, dry and intact. Some mild s welling in her lower leg below the incision site. She can dorsiflex and plantarflex her foot appropr iately. She is neurologically intact. LABORATORY DATA: Culture results continue to be no growth to date. ASSESSMENT: A 56-year-old white female now 1 week out from I and D and polyethylene exchange for inf ected knee 2 years out from initial surgery, doing pretty well. Cultures have been no growth. She w as on antibiotics beforehand. PLAN: 1. DVT prophylaxis including thigh-high TEDs, SCDs, and aspirin twice a day. 2. PT/OT. She can weight bear as tolerated. Left total knee protocol. 3. Pain control, doing okay with current pain regimen. 4. IV antibiotics x6 weeks. Plan on vancomycin as per ID recommendations. She would plan on discha rge yesterday, but there has been a change in home health and hoping to be discharged tomorrow. 5. Disposition: She is orthopedically okay for discharge any time. I need to see her somewhere [facility] 2-3 weeks out from surgery date. Any orthopedic questions can be directed to me at [phone] . Job ID: [id number]
[2021-02-04] MEDS ORDERED: FLUCONAZOLE 50 MG TAB PO ONE (16:09)
--- NOTE | 2021-02-04 19:21 | Hospitalist Progress Note ---
Date of Service February 04, 2021 Assessment & Plan (1) Cellulitis: Plan: Infection of Left TKA Present on admission with left lower extremity erythema and swelling Failed antibiotic therapy with Keflex then Bactrim added 1 day prior to admission Hx of Left TKA 2 yrs ago. Received IM Rocephin at [facility] on 01/24 The following day presented to the ER with worsening erythema associated with fever and chills WBC on admission 11.23, ESR 46, CRP 14.1, negative procalcitonin IV Rocephin and Vanco was started on admission Blood culture remain negative CT LLE knee showed total joint arthroplasty with patellar resurfacing. Artifact from the hardware limits the study. Moderate joint effusion. Nonspecific subcutaneous edema of the lower leg with posterior skin thickening. Venous stasis, cellulitis or lymphede US for DVT is negative - was started on Eliquis on 01/22 for her hx of DVT as outpatient but now finished starter pack. No need to continue. Negative Lymes and anaplasmosis testing Orthopedic on board s/p aspiration of left knee - about 60 mL of cloudy yellow fluid obtained, WBC > 17,000 WBC down to 8.5K, erythema improved/resolved, however patient bottle blowing machine tender to palpation at knee joint, and having difficulty moving joint (left knee) suggesting inflammatory fluid and likely a knee joint infection s/p I&D and component retention w/ Dr. Lemon (01/28/2021) (Surgeon discussed with the pt success rate probably 40-50%). Pt really wants to avoid any additional surgery and wants to give a trial of the irrigation, debridement and poly exchange and component retention. IV Rocephin will discontinued on 02/01 Case discussed with infectious disease Dr. Cisse (official consult canceled since ID was backed up) that recommend 6 weeks of IV antibiotic with IV Vanco since we don't have any organism grow on blood and wound cx, and patient is doing well on it. Negative culture might be due to prior antibiotic therapy As per ID it is difficult to know what PO abx to transition after completing the 6 weeks IV Vanco since we have no organism to target. But in general if you are using vancomycin, suppression showing be something that cover MRSA such as doxy, Bactrim or Clinda. Check Vanco trough in 1 week, goal 15-20. As per ID the definitive treatment is not antibiotic but removal of hardware Patient is not too happy about the 6-week IV antibiotic since planning to go to a trip for 2 weeks Prescription given to case management to arrange for Vanco infusion outpatient Patient is a little bit reluctant to have the PICC line placed and would like to speak to Ortho Dr. Lemon before placing it Patient spoke to Dr. Lemon earlier and agreed to proceed with the PICC line placement Patient will need weekly Vanco trough CBC and BMP while on the IV vanco Consent obtained and signed for the PICC line Clinically improved significantly Acute on chronic anemia, blood loss anemia, dilutional Hemoglobin 10.5, down to 8.3 Hemoglobin improved to 9.4 on 01/31 Continue iron supplement Continue monitor H&H (2) LEENA (obstructive sleep apnea): Plan: - can use home cpap (3) Hypothyroidism: Plan: - Cont levothyroxine 175 mcg daily (4) Depression: Plan: - Continue wellbutrin and Cymbalta (5) Anxiety: Plan: - cont hydroxyzine prn (6) UTI (urinary tract infection): Plan: - Started on bactrim for UTI on 01/24, UA does not appear to be grossly infected, follow culture. Hold PO antibiotics, po as above. - Denies any urinary symptoms- (7) Obesity: Plan: - BMI of 47, encourage lifestyle medications after discharge B12 deficiency Status post B12 injection this morning Stable DVT ppx: - teds, scds, heparin subq CODE: Full Disposition Plan to discharge early in the morning Admission and Anticipated Discharge Date Admission Date: January 25, 2021 Subjective Patient was seen and examined for follow-up on left lower extremity cellulitis and knee infection Ling in bed with no distress watching TV She wants to leave early in the morning since her next dose of Vanco is tonight at 9PM. She said that she would not get any ride at this time to go home Patient denies any chest pain, palpitation, dizziness, shortness of breath. Review of Systems Review of Systems: Constitutional: +fever, +sweats, no chills Eyes: No diplopia, no worsening or blurred vision ENT: normal hearing, no trouble swallowing Respiratory: No cough, sputum, dyspnea at rest or on exertion Cardiovascular: No chest pain, tightness or palpitations Abdomen: No pain, nausea, vomiting, diarrhea or constipation Musculoskeletal: Left leg as per HPI, otherwise no joint pain, calf pain, or swelling Neurologic: No weakness, numbness/tingling, or balance problems - required using walker due to LLE pain in past 24 hrs. Psychiatric: Hx of anxiety or depression on medication Skin: erythematous LLE as per HPI. Otherwise warm and dry. Physical Exam Physical Exam: General- No acute distress Head- atraumatic Eyes- PERRL, EOMI, ENT- oropharynx clear Neck- supple, no JVD Lungs- clear to auscultation Heart- regular rhythm; no murmur Abdomen- normal bowel sounds, soft, nontender Extremities- no calf tenderness, left lower extremity erythema improved, left knee incision clean and dry, no drainage no erythema overall Neuro- alert, oriented x 3; PERRL, EOMI; no facial palsy; no dysarthria Skin- warm & dry Results & Data Results & Data ([facility]) Vital Signs (Past 12 Hours) Vital Signs Temp Pulse Resp BP Pulse Ox 02/04/21 15:00 36.8 C 84 20 126/73 96
[2021-02-04] MEDS: SENNA 8.6 MG TAB PO SCH (19:59)
[2021-02-04] MEDS: traZODone HCL 100 MG TAB PO SCH (21:57)
[2021-02-05] MEDS: ACETAMINOPHEN 500 MG TAB PO SCH (06:22)
[2021-02-05 06:35] LABS: Creatinine Clr Calc Pharmacy 175.6 ml/min; Est GFR (African American) 121.4 ml/min; Est GFR (Non-African American) 104.8 ml/min
[2021-02-05] MEDS: ASPIRIN 81 MG ECTAB PO SCH (07:43)
[2021-02-05] MEDS: LEVOTHYROXINE SODIUM 175 MCG TABLET PO SCH (07:43)
[2021-02-05] MEDS: buPROPion HCl 100 MG TABLET PO SCH (07:44)
[2021-02-05] MEDS: ASCORBIC ACID 500 MG TAB PO SCH (07:44)
[2021-02-05] MEDS: CALCIUM 600MG + VIT D 400 IU TAB PO SCH (07:45)
[2021-02-05] MEDS: DULoxetine HCL 60 MG CAP PO SCH (07:46)
[2021-02-05] MEDS: FERROUS SULFATE 325 MG TAB PO SCH (07:46)
[2021-02-05] MEDS: MULTIVITAMIN TAB PO SCH (07:47)
[2021-02-05] MEDS: PANTOprazole 40 MG TAB PO SCH (07:48)
[2021-02-05] MEDS: POTASSIUM CHLORIDE CRTAB 20 MEQ TABCR PO SCH (07:48)
[2021-02-05] MEDS: ZINC SULFATE 220 MG CAPSULE PO SCH (07:49)
--- NOTE | 2021-02-05 07:54 | Discharge Summary ---
Date of Service February 05, 2021 Admission HPI Per Admitting Provider This is a 56 yo F with PMHx of DVT, hypothyroidism, morbid obesity with BMI of 47, LEENA on cpap, depression and anxiety as well as multiple other medical comorbidities who presents to the ER with acute onset of left lower extremity edema and erythema on 01/21 on the posterior medial aspect, around a scar from previous surgical intervention 20 years ago for hematoma. Her left knee is s/p TKA 2 years ago. She was seen at [facility] on 01/22 where she complained of extreme fatigue, increased pain with walking in LLE, subjective fever, body aches, along with a red swollen area over the left posterior medial leg that was approximately, at [facility] it measured 15 cm x 9 cm. At that time she was started on Keflex as well as Eliquis starter pack for prophylactic treatment of DV due to her history. Patient was planning on attending a , and did not have time to go get blood work done at that point time. She planned to get D- dimer and if elevated, follow up with an ultrasound the following day. She represented to [facility] on 01/24 for recheck of cellulitis in the left lower extremity due to no improvement, but then also complained of urinary-like symptoms including urgency, low back pain and sensation of not emptying her bladder. Then, she was started on Bactrim x5 days and given ceftriaxone 1 g injection. D-dimer noted to be negative. She presents today due to no significant improvement and ongoing redness and swelling of the LLE, with extension past the previously outlined border which now involves nearly the entire lower leg except her foot, and extends up to medial thigh and above the knee. She has needed to use a walker the past 24 hrs due to pain with walking, rating it 7/10 currently. Pt took tylenol this morning due to sweats and feeling as if she had a fever, and for pain. Denies any other complaints. Admission Exam Per Admitting Provider General: awake, alert, no apparent distress, morbidly obese with BMI of 47 Head: Normocephalic, atraumatic ENT: PERRL, EOMI, no pharyngeal exudate, mucous membranes moist Chest: Clear to auscultation, on room air, no adventitious breath sounds Cardiac: Regular rate and rhythm, no murmur, no JVD, normal peripheral pulses, good capillary refill Abdominal: NABS x 4 quadrants, soft, nondistended, nontender to palpation, no rebound or guarding Extremities: LLE erythema and warmth extending from left ankle to medial thigh, involving scar proximal to the knee, posteriorly does not extend past knee joint. Most painful with palpation over area posterior/medial to knee where previous hematoma scar present (see HPI). s/p TKA 2 years ago with separate anterior scar. + Difficulty bending knee further than approx. 20 degrees due to pain. No area of fluctuance or obvious wound/trauma for culture. RLE s/p TKA. Otherwise, normal inspection, no peripheral edema or erythema, calfs nontender to palpation Psych: Normal mood and affect Neuro: AAO x 3, strength intact bilaterally and rated 5/5, no motor deficits, speech is clear, no peripheral sensory deficits Principal Diagnosis Infected Left Knee Replacement Cellulitis Anemia LEENA (obstructive sleep apnea): Hypothyroidism: Depression: Anxiety: Obesity: Discharge Exam General- No acute distress Head- atraumatic Eyes- PERRL, EOMI, ENT- oropharynx clear Neck- supple, no JVD Lungs- clear to auscultation Heart- regular rhythm; no murmur Abdomen- normal bowel sounds, soft, nontender Extremities- no calf tenderness, left lower extremity erythema improved, left knee incision clean and dry, no drainage no erythema overall Neuro- alert, oriented x 3; PERRL, EOMI; no facial palsy; no dysarthria Skin- warm & dry Discharge Data Allergies Allergy/AdvReac Type Severity Reaction Status Date / Time nitrofurantoin Allergy Intermediate Rash Verified 01/25/21 11:33 [From Macrobid] Penicillins Allergy Intermediate Rash Verified 01/25/21 11:33 povidone-iodine Allergy Intermediate Rash Verified 10/26/20 08:56 Consultations 01/25/21 12:53 ED Decision to Admit Stat 01/27/21 10:43 Consult Orthopedic Surgery Routine Procedures Performed Operation Date: 01/28/21 10:50 Actual Procedures s Irrigation and Debridment Knee Left(Left) - Peter Lemon MD p Poly Exchange and Poly Exchange Left Knee(Left) - Peter Lemon MD Ordered Studies 01/25/21 10:39 US venous doppler LE LT Stat 01/25/21 14:23 CT knee LT w con Stat US venous doppler LE LT HISTORY: 56 years-old Female swelling acute pain and swelling of the left lower extremity COMPARISON: 12/16/2018 TECHNIQUE: Multiple real-time sonographic images of the left lower extremity deep venous structures were obtained assessing grayscale appearance, color and spectral flow FINDINGS: Normal flow, compressibility, phasicity and augmentation. IMPRESSION: No sonographic evidence of deep venous thrombosis. ACT 112: Negative or not required by law. The above report was generated using voice recognition software. It may contain grammatical, syntax or spelling errors. Electronically signed by: Prakash Enriquez M.D. 01/25/2021 12:09 PM Dictated: 01/25/21 1208Transcribed: 01/25/[address] knee LT w con HISTORY: 56 years-old Female Cellulitis, s/p TKA acute pain and swelling of the left knee with arthroplasty COMPARISON: Knee radiographs 11/16/2019 TECHNIQUE: Multiple axial CT images of the left knee were obtained following the intravenous ministration of contrast. Coronal and sagittal reformatted images were obtained from the axial data set and were submitted for review. A dose lowering technique was used consistent with the principals of FELIPE. FINDINGS: Lower extremity varices. The study is limited secondary to body habitus and streak artifact from total joint arthroplasty with patellar resurfacing. No evidence of hardware fracture or loosening. The mineralized appearance of the bones. 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 Unchanged lateral tilt of the patella within the trochlea. No osseous erosions identified. Moderate size joint effusion with synovial thickening. Mild circumferential subcutaneous edema of the calf is most pronounced posteriorly. This is partially imaged. Moderate associated posterior skin thickening. No discrete fluid collection. Mild nonspecific lateral subcutaneous edema of the distal thigh. IMPRESSION: 1. Total joint arthroplasty with patellar resurfacing. Artifact from the hardware limits the study. 2. No acute fracture or malalignment identified. 3. Moderate joint effusion. 4. Nonspecific subcutaneous edema of the lower leg with posterior skin thickening. Venous stasis, cellulitis or lymphedema considered. 5. Lower extremity varicosities. ACT 112: Negative or not required by law. The above report was generated using voice recognition software. It may contain grammatical, syntax or spelling errors. Electronically signed by: Prakash Enriquez M.D. 01/25/2021 3:27 PM Dictated: 01/25/21 1521Transcribed: 01/25/21 1521 XR knee LT 1 or 2V routine HISTORY: 56 years-old Female knee pain acute pain and swelling of the left knee COMPARISON: CT left knee 01/25/2021 TECHNIQUE: 2 views of the left knee FINDINGS: Total joint arthroplasty and patella resurfacing. No acute fracture or evidence of hardware complication. Moderate joint effusion. Probable enchondroma of the distal femoral diaphysis. Moderate diffuse soft tissue prominence redemonstrated. No osseous erosions. IMPRESSION: 1. Moderate diffuse soft tissue swelling without acute fracture. 2. Moderate joint effusion. 3. Total joint arthroplasty and patella resurfacing. No evidence of hardware complication. ACT 112: Negative or not required by law. The above report was generated using voice recognition software. It may contain grammatical, syntax or spelling errors. Electronically signed by: Prakash Enriquez M.D. 01/27/2021 12:08 PM Dictated: 01/27/21 1206Transcribed: 01/27/21 1206 Hospital Course (1) Cellulitis: Infection of Left TKA Present on admission with left lower extremity erythema and swelling Failed antibiotic therapy with Keflex then Bactrim added 1 day prior to admission Hx of Left TKA 2 yrs ago. Received IM Rocephin at [facility] on 01/24 The following day presented to the ER with worsening erythema associated with fever and chills WBC on admission 11.23, ESR 46, CRP 14.1, negative procalcitonin IV Rocephin and Vanco was started on admission Blood culture remain negative CT LLE knee showed total joint arthroplasty with patellar resurfacing. Artifact from the hardware limits the study. Moderate joint effusion. Nonspecific subcutaneous edema of the lower leg with posterior skin thickening. Venous stasis, cellulitis or lymphede US for DVT is negative - was started on Eliquis on 01/22 for her hx of DVT as outpatient but now finished starter pack. No need to continue. Negative Lymes and anaplasmosis testing Orthopedic on board s/p aspiration of left knee - about 60 mL of cloudy yellow fluid obtained, WBC > 17,000 WBC down to 8.5K, erythema improved/resolved, however patient woven blind loom tender to palpation at knee joint, and having difficulty moving joint (left knee) suggesting inflammatory fluid and likely a knee joint infection s/p I&D and component retention w/ Dr. Lemon (01/28/2021) (Surgeon discussed with the pt success rate probably 40-50%). Pt really wants to avoid any additional surgery and wants to give a trial of the irrigation, debridement and poly exchange and component retention. IV Rocephin will discontinued on 02/01 Case discussed with infectious disease Dr. Cisse (official consult canceled since ID was backed up) that recommend 6 weeks of IV antibiotic with IV Vanco since we don't have any organism grow on blood and wound cx, and patient is doing well on it. Negative culture might be due to prior antibiotic therapy As per ID it is difficult to know what PO abx to transition after completing the 6 weeks IV Vanco since we have no organism to target. But in general if you are using vancomycin, suppression showing be something that cover MRSA such as doxy, Bactrim or Clinda. Check Vanco trough in 1 week, goal 15-20. As per ID the definitive treatment is not antibiotic but removal of hardware Patient is not too happy about the 6-week IV antibiotic since planning to go to a trip for 2 weeks Prescription given to case management to arrange for Vanco infusion outpatient Patient is a little bit reluctant to have the PICC line placed and would like to speak to Ortho Dr. Lemon before placing it Patient spoke to Dr. Lemon earlier and agreed to proceed with the PICC line placement Patient will need weekly Vanco trough CBC and BMP while on the IV vanco Consent obtained and signed for the PICC line Clinically improved significantly Acute on chronic anemia, blood loss anemia, dilutional Hemoglobin 10.5, down to 8.3 Hemoglobin improved to 9.4 on 01/31 Continue iron supplement Continue monitor H&H (2) LEENA (obstructive sleep apnea): - can use home cpap (3) Hypothyroidism: - Cont levothyroxine 175 mcg daily (4) Depression: - Continue wellbutrin and Cymbalta (5) Anxiety: - cont hydroxyzine prn (6) UTI (urinary tract infection): - Started on bactrim for UTI on 01/24, UA does not appear to be grossly infected, follow culture. Hold PO antibiotics, po as above. - Denies any urinary symptoms- (7) Obesity: - BMI of 47, encourage lifestyle medications after discharge B12 deficiency Status post B12 injection this morning Stable DVT ppx: - teds, scds, heparin subq CODE: Full Disposition Plan to discharge early in the morning Total Time Total Time Spent Total Time Spent (In Minutes): 40 minutes Discharge Plan Discharge Items Patient Disposition: Home - Home Health Services Reason For Visit: CELLULITIS Discharge Diagnosis: Infected Left Knee Replacement Cellulitis Activity: Per Instructions section Non-emergency contact: Primary Care Provider and Surgeon Call non-emergency contact if: you have any medication questions and your temperature is above 101 Follow-up/Referrals: Peter Lemon MD [Physician] - (2-3 weeks from surgery date.) Genet Liu MD [Primary Care Provider] - (Date & Time 02/08/2021 10:40 AM Provider Mone Mckay MD Department General Internal Medicine [facility] ) Diet: Heart Healthy Addtl Attending Provider Instructions: 02/08/2021 10:40 AM Provider Mone Mckay MD Department General Internal Medicine [facility] Follow up with Orthopedic Dr. Lemon in 2 weeks Continue IV vancomycin to complete a total of 6 weeks course of antibiotic Check vanco trough, CBC and BMP weekly while on IV vancomycin Seek medical attention if you develop any fever Avoid any other NSAID such as Motrin, Aleve, naproxen, ibuprofen, Advil, Meloxicam,.. due to increase risk of bleeding while taking aspirin twice a day Please hold next dose of tramadol if you become drowsy and lethargy Do not drive or operate any machine while on tramadol ACTIVITY RECOMMENDATIONS: Physical Therapy: * You will go to physical therapy three times each week for four to six weeks after your surgery in order to regain your knee range of motion and to retrain your knee to work properly. * It is just as important to make sure you are getting your knee perfectly straight as it is to regain your knee bend. * Taking a pain pill an hour before therapy can help you have a more productive and comfortable therapy session. Home Exercise: * You were shown a series of exercises (heel props, heel slides, etc.) in the hospital. Do these exercises three to four times each day including the exercises you were shown in physical therapy. Walking: * Get up and walk several times each day. For the first four weeks, try not to stand or walk for more than one hour at a time. If you do stand or walk for more than one hour, you will not hurt anything, but your knee and leg will likely swell. * As you feel comfortable, you may change from the walker or crutches to a cane and then to independent walking. MEDICATIONS: New Medicine: * You will likely be taking one or more of these medications: 1. Dilaudid - A quick and shorter-acting pain medication. Take one to two tablets every six hours to lessen your pain. 2. Iron Sulfate - Take two times each day for the month after surgery to help you replace the blood lost during surgery. 3. Aspirin - Thins your blood to lessen the chance of forming a blood clot. * The most common side effects of pain medicine and iron are nausea and constipation. If nausea or constipation is too much of a problem or if you have any questions about your new medicines or doses, call [facility] at [phone]. We will try to help you manage these issues. "VERY IMPORTANT TO READ AND REVIEW" Pain: * The immediate post-operative period after knee replacement surgery is often quite painful. * You are given a prescription for pain medicine. You should take it, as directed, when you need it, especially before physical therapy and before going to bed. Pain that interferes with sleep is very common and can last several months. * You will likely need pain medicine for the first four to six weeks. It will not stop all of the pain. The pain will lessen and as you feel better, you may change to milder pain medicine such as Tylenol. * The most common side effects of pain medicine are nausea and constipation, so don't take more than you need. SPECIAL CARE INSTRUCTIONS: TEDs/Elastic Stockings: * The white elastic stockings help limit swelling and prevent blood clots from forming in your legs. The more you wear them, the more they work. * Wear them for six weeks after knee replacement surgery and four weeks after partial knee replacement. Prevention of Infection: * Take antibiotics one hour before any dental cleaning, dental work, urological procedure, gastrointestinal procedure or any invasive surgery in order to prevent your new joint from getting infected. * You may get the antibiotics from the doctor performing the procedure or you may call our office at before and we will call in a prescription to the pharmacy of your choice. Things to Watch For: * Drainage from the incision site that occurs more than one week after your surgery. * Severely increased knee/leg pain or swelling. * Increased redness at the incision site. * Fever above 102 degrees Fahrenheit. * Unusual chest pain or shortness of breath. * Unusual pain or burning with urination. Call [facility] at with any of the above problems or if you have any questions about your medicines or recovery. FOLLOW UP VISIT: Make an appointment to see your doctor for approximately two weeks after surgery for a progress check and staple removal by calling the office at . Pending Studies at Discharge: No Stand-Alone Forms: My [facility], Smoking Cessation Medications and DC Order Prescriptions: New vancomycin 1.5 gram recon soln 1.5 g IV Q12H 35 Days RF: 0 aspirin 81 mg Tablet,Delayed Release (Dr/Ec) 81 mg PO BID 30 Days Qty: 60 RF: 0 docusate sodium 100 mg Capsule 100 mg PO BID Qty: 30 RF: 0 Continued Probiotic 3 billion cell Capsule 3,000 mmu cells PO QAM RF: 0 levothyroxine 175 mcg tablet 175 mcg PO QAM RF: 0 bupropion HCl 100 mg tablet 100 mg PO BID RF: 0 omeprazole 20 mg capsule,delayed release(DR/EC) 40 mg PO QAM RF: 0 hydroxyzine HCl 25 mg tablet 25 mg PO TID PRN (Reason: Anxiety) RF: 0 multivitamin Tablet 1 tab PO QAM RF: 0 ferrous sulfate 325 mg (65 mg iron) Tablet 325 mg PO QAM RF: 0 zinc 50 mg Tablet 50 mg PO QAM RF: 0 ergocalciferol (vitamin D2) 50,000 unit capsule 50,000 unit PO WK RF: 0 Caltrate 600 plus D 600 mg (1,500 mg)-800 unit Tablet,Chewable 1 tab PO BID RF: 0 furosemide [Lasix] 40 mg Tablet 40 mg PO QAM RF: 0 potassium chloride 20 mEq Tablet Extended Release 20 meq PO QAM RF: 0 trazodone 100 mg tablet 100 mg PO HS RF: 0 pregabalin [Lyrica] 150 mg capsule 150 mg PO BID RF: 0 duloxetine [Cymbalta] 30 mg Capsule,Delayed Release(Dr/Ec) 60 mg PO QAM RF: 0 dicyclomine 10 mg capsule 10 mg PO DAILY PRN (Reason: Abdominal Pain) RF: 0 Changed tramadol 50 mg tablet 50 mg PO Q8H PRN (Reason: pain) Qty: 20 RF: 0 Discontinued cephalexin 500 mg capsule 500 mg PO Q8 Qty: 21 RF: 0 meloxicam 15 mg Tablet 30 mg PO DAILY RF: 0 sulfamethoxazole-trimethoprim 800-160 mg tablet 1 tab PO DAILY RF: 0 Discharge Orders: Discharge Order (Routine); Ordered 02/05/21 Ordered By: Yesenia Renee/Other Patient Handouts: DVT Post Op Prevention Admission Data Admit Date/Time: 01/25/21 14:13 Attending Provider: Yesenia Mon Admit Provider: Paul Vyas Primary Care Provider: Genet Liu Other Providers: Paul Vyas ; [place] ; Peter Lemon Other Interventions: Discharge Summary Assessment (RN) Last Done: 02/05/21 07:29
[2021-02-05] MEDS: traMADol HCL 50 MG TABLET PO PRN (07:55)
[2021-02-05] MEDS: TAPENTADOL HCL ER 50 MG TABCR PO SCH (07:55)
[2021-02-05] MEDS: PREGABALIN 150 MG CAP PO SCH (07:55)
== END 2021-02-05 08:00 | disposition home health service (06) | DRG 464 ==
LOC: ED 10:23 → 3W 14:13 → SUATTDRO 14:13 → 3W 14:49
DX: Z68.42 Body mass index [BMI] 45.0-49.9, adult; Z88.8 Allergy status to other drugs, medicaments and biological substances; N39.0 Urinary tract infection, site not specified; L03.116 Cellulitis of left lower limb; D64.9 Anemia, unspecified; G47.33 Obstructive sleep apnea (adult) (pediatric); Z83.3 Family history of diabetes mellitus; E53.8 Deficiency of other specified B group vitamins; Z88.0 Allergy status to penicillin; E03.9 Hypothyroidism, unspecified; T84.59XA Infection and inflammatory reaction due to other internal joint prosthesis, initial encounter; F41.8 Other specified anxiety disorders; Z96.653 Presence of artificial knee joint, bilateral; Y92.009 Unspecified place in unspecified non-institutional (private) residence as the place of occurrence of the external cause; E66.9 Obesity, unspecified

== ENCOUNTER 2021-07-19 08:39 | Observation (INO) ==
--- NOTE | 2021-06-20 14:05 | PAT Medication Instructions ---
Medication Instructions Date of Service June 20, 2021 Home Medications Medication Instructions Recorded tramadol 50 mg tablet 50 mg PO Q8H PRN #20 tab 02/05/21 sulfamethoxazole 800 1 tab PO BID #60 tab 05/19/21 mg-trimethoprim 160 mg tablet (Bactrim DS) calcium carbonate 600 mg-vitamin D3 20 mcg (800 unit) chewable tablet (Caltrate 600 plus D) 1 tab PO BID ergocalciferol (vitamin D2) 1,250 mcg (50,000 unit) capsule 50,000 unit PO WK ferrous sulfate 325 mg (65 mg iron) tablet 325 mg PO QAM multivitamin 1 tab PO QAM zinc 50 mg tablet 50 mg PO QAM furosemide 40 mg tablet (Lasix) 40 mg PO QAM potassium chloride 20 mEq tablet,extended release 20 meq PO QAM pregabalin 150 mg capsule (Lyrica) 150 mg PO BID trazodone 100 mg tablet 100 mg PO HS bupropion HCl 100 mg tablet 100 mg PO BID hydroxyzine HCl 25 mg tablet 25 mg PO TID PRN levothyroxine 175 mcg tablet 175 mcg PO QAM omeprazole 20 mg capsule,delayed release 40 mg PO QAM lactobacillus combination no.4 3 billion cell capsule (Probiotic) 3,000 mmu cells PO QAM duloxetine 30 mg capsule,delayed release (Cymbalta) 60 mg PO QAM dicyclomine 10 mg capsule 10 mg PO DAILY PRN tramadol 50 mg tablet 50 mg PO Q8H PRN sulfamethoxazole 800 mg-trimethoprim 160 mg tablet (Bactrim DS) 1 tab PO BID Continue as directed ergocalciferol (vitamin D2) 1,250 mcg (50,000 unit) capsule 50,000 unit PO WK (do not take morning of surgery) sulfamethoxazole 800 mg-trimethoprim 160 mg tablet (Bactrim DS) 1 tab PO BID DO NOT take the morning of surgery calcium carbonate 600 mg-vitamin D3 20 mcg (800 unit) chewable tablet (Caltrate 600 plus D) 1 tab PO BID ferrous sulfate 325 mg (65 mg iron) tablet 325 mg PO QAM multivitamin 1 tab PO QAM zinc 50 mg tablet 50 mg PO QAM furosemide 40 mg tablet (Lasix) 40 mg PO QAM potassium chloride 20 mEq tablet,extended release 20 meq PO QAM lactobacillus combination no.4 3 billion cell capsule (Probiotic) 3,000 mmu cells PO QAM dicyclomine 10 mg capsule 10 mg PO DAILY PRN Take morning of surgery With a small sip of water, OTHERWISE NOTHING TO EAT OR DRINK AFTER MIDNIGHT: pregabalin 150 mg capsule (Lyrica) 150 mg PO BID bupropion HCl 100 mg tablet 100 mg PO BID hydroxyzine HCl 25 mg tablet 25 mg PO TID PRN(if needed) levothyroxine 175 mcg tablet 175 mcg PO QAM omeprazole 20 mg capsule,delayed release 40 mg PO QAM duloxetine 30 mg capsule,delayed release (Cymbalta) 60 mg PO QAM tramadol 50 mg tablet 50 mg PO Q8H PRN(okay to take up to 4 hours prior to surgery if needed) Take evening before surgery calcium carbonate 600 mg-vitamin D3 20 mcg (800 unit) chewable tablet (Caltrate 600 plus D) 1 tab PO BID pregabalin 150 mg capsule (Lyrica) 150 mg PO BID trazodone 100 mg tablet 100 mg PO HS bupropion HCl 100 mg tablet 100 mg PO BID hydroxyzine HCl 25 mg tablet 25 mg PO TID PRN(if needed) tramadol 50 mg tablet 50 mg PO Q8H PRN(if needed) Other Notes If you have any questions please call us at [phone] or [phone] or [phone] or [phone]
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
[~2021-07-19 08:39] MED LIST changes: -CEFAZOLIN 3000MG 72.5 ML IV SCH; +GABAPENTIN 300 MG CAP PO SCH; -GABAPENTIN 900 MG DOSE PO SCH; -ROPIVACAINE 0.5% 5 MG/ML 30 ML VIAL ONE; -SCOPOLAMINE 1.5 MG TDSY TD SCH; +Scopolamine 1 MG TDSY TD SCH; +TRANEXAMIC ACID 1,000 MG **IV Pre-op IV SCH
--- NOTE | 2021-07-19 08:45 | History & Physical Bridge Note ---
Date of Service July 19, 2021 History & Physical Bridge Note I have examined the patient, reviewed the History & Physical and in the interval since the performance of the History & Physical I have noted the following changes of clinical significance: no changes noted
[2021-07-19] MEDS ORDERED: MIDAZOLAM HCL 1 MG/ML 2ML VIAL ONE (09:46)
[2021-07-19] MEDS ORDERED: KETAMINE 50 MG/5 ML SYRINGE ONE (09:46)
[2021-07-19] MEDS ORDERED: ROPIVACAINE 0.5% 5 MG/ML 30 ML VIAL ONE (09:52)
[2021-07-19] MEDS ORDERED: ATROPINE SULFATE 0.1 MG/ML 10ML SYR IV PRN (09:53)
[2021-07-19] MEDS ORDERED: ONDANSETRON INJ 2 MG/ML 2 ML VIAL IV PRN ×2 (09:53→18:35)
[2021-07-19] MEDS ORDERED: ePHEDrine sulfate 50 MG/ML AMP IV PRN (09:53)
[2021-07-19] MEDS ORDERED: fentaNYL citrate 100 MCG/2 ML VIAL ONE ×2 (10:00→12:03)
[2021-07-19] MEDS ORDERED: SODIUM CHLORIDE 0.9% PF 50 ML VIAL ONE (10:48)
[2021-07-19] MEDS ORDERED: BUPIVACAINE/EPINEPHRINE 0.25% 1:200,000 30 ML VIAL ONE (10:48)
[2021-07-19] MEDS ORDERED: BUPIVACAINE LIPOSOME 1.3% 266 MG/20 ML VIAL ONE (10:48)
[2021-07-19] MEDS ORDERED: VANCOMYCIN HCL 1000MG/20ML VIAL ONE (10:49)
[2021-07-19] MEDS ORDERED: ONDANSETRON INJ 2 MG/ML 2 ML VIAL ONE (12:15)
[2021-07-19] MEDS ORDERED: LIDOCAINE 2% 2 ML VIAL/AMP(20MG/ML) INFIL ONE (12:15)
[2021-07-19] MEDS ORDERED: DEXAMETHASONE SOD INJ 4 MG/ML VIAL ONE (12:15)
[2021-07-19] MEDS ORDERED: KETOROLAC 30 MG/ML VIAL ONE ×2 (12:15→17:34)
[2021-07-19] MEDS ORDERED: PROPOFOL IV EMULSION 10 MG/ML 20 ML VIAL IV ONE (12:15)
[2021-07-19] MEDS ORDERED: HYDROmorphone INJ 2 MG/ML SYR/VIAL ONE (13:12)
[2021-07-19] MEDS ORDERED: ALBUMIN HUMAN 5% 12.5 GM/250 ML VIAL IV ONE (13:22)
[2021-07-19] MEDS ORDERED: ROCURONIUM BROMIDE 10 MG/ML 5 ML VIAL IV ONE (13:54)
[2021-07-19] MEDS ORDERED: SUGAMMADEX SODIUM 200 MG/2 ML VIAL IV ONE (14:55)
[2021-07-19] MEDS ORDERED: ceFAZolin 330 MG/ML 1 GM VIAL ONE (15:04)
[2021-07-19] MEDS ORDERED: ceFAZolin 2000MG 2,000 MG/15 ML SYR IV ONE (15:06)
--- NOTE | 2021-07-19 16:31 | Post Operative Brief Note ---
PG Immediate Post Op with CF Date of Surgery July 19, 2021 Pre & Post Diagnosis Operation Date: 07/19/21 10:40 Pre-Op Diagnosis: Right Distal Femur Malunion Status Post Right Intramedullary Nailing Periprosthetic Femur Fracture Post-Op Diagnosis: Right Distal Femur Malunion Status Post Right Total Intramedullary Nailing Periprosthetic Femur Fracture I identified the patient and participated in the time-out.: Yes Procedure Operation Date: 07/19/21 10:40 Actual Procedures p Right Total Knee Revision(Right) - Peter Lemon MD Surgeon Peter Lemon MD Time Study Technologist David Krishna PA-C Estimated Blood Loss 300 Findings Consistent with Post-Op Diagnosis Specimens Specimen Description: no specimen per Dr. Lemon Drains Feliciano Catheter Anesthesia Type General Complications none Disposition Accompanied Patient To Recovery: No
[2021-07-19] MEDS: fentaNYL citrate 100 MCG/2 ML VIAL IV PRN ×4 (16:47→17:20)
--- NOTE | 2021-07-19 17:24 | XRay Report ---
RIGHT KNEE 2 VIEWS History: Right total knee arthroplasty. Degenerative arthritis. Postop. FINDINGS: The patient is status post a constrained longstem right total knee arthroplasty. The hardwa re is intact. No fracture or dislocation. Skin vanessa are in place. IMPRESSION: Status post constrained longstem right total knee arthroplasty. No evidence for hardware complication . ACT 112: Negative or not required by law. Electronically signed by: Quincy Perez M.D. 07/19/2021 5:23 PM
[2021-07-19] MEDS ORDERED: KETOROLAC 30 MG/ML VIAL IV ONE (17:30)
[2021-07-19] MEDS ORDERED: MEPERIDINE HCL 25 MG/ML CARP/VIAL IV ONE (17:32)
[2021-07-19] MEDS: MEPERIDINE HCL 50 MG/ML CARP ONE ×2 (17:37→17:40)
--- NOTE | 2021-07-19 17:59 | Anesthesiology Progress Note ---
Date of Service July 19, 2021 Anesthesia Post Procedure Vital Signs Vital Signs: Temp Pulse Pulse Resp BP Pulse Ox 07/19/21 17:45 89 16 131/78 94 07/19/21 17:35 92 H 12 134/73 94 07/19/21 17:25 36.6 C 92 H 12 137/79 92 07/19/21 17:15 95 H 16 127/77 95 07/19/21 17:05 88 16 116/79 97 07/19/21 16:55 92 H 24 108/72 96 07/19/21 16:45 97 H 16 106/77 96 07/19/21 16:35 86 20 125/72 98 07/19/21 16:27 36.3 C L 93 H 10 L 138/55 L 97 07/19/21 09:32 36.8 C 67 18 132/71 98 Pain Intensity Right Knee: Pain Intensity: 3 Transfer of Care Handoff Completed per policy Notes Mental Status: alert / awake / arousable Patient Amnestic to Procedure: Yes Nausea / Vomiting: adequately controlled Pain: adequately controlled Airway Patency, RR, SpO2: stable & adequate BP & HR: stable & adequate Hydration State: stable & adequate Anesthetic Complications: no major complications apparent and Pt Satisfied with anesthetic care Notes: The patient is awake and getting comfortable now. She required multiple doses of opioids in PACU so she will have continuous pulse oximetry overnight.
[2021-07-19] MEDS ORDERED: bisacodyL 10 MG SUPP PR PRN (18:35)
[2021-07-19] MEDS ORDERED: NALOXONE HCL 0.4 MG/1 ML VIAL/CARP IV PRN (18:35)
[2021-07-19] MEDS ORDERED: METOCLOPRAMIDE HCL INJ 5 MG/ML 2 ML VIAL IV PRN (18:35)
[2021-07-19] MEDS ORDERED: ALUMINUM/MAGNESIUM SUSP 30 ML UDC PO PRN (18:35)
[2021-07-19] MEDS ORDERED: MAGNESIUM HYDROXIDE SUSP 30 ML UDC PO PRN (18:35)
[2021-07-19] MEDS ORDERED: hydrOXYzine HCl 25 MG TAB PO PRN (18:35)
[2021-07-19] MEDS ORDERED: diphenhydrAMINE Capsule 25 MG CAP PO PRN (18:35)
--- NOTE | 2021-07-19 18:39 | Operative Report ---
Post Operative Report Pre & Post Diagnosis Operation Date: 07/19/21 10:40 Pre-Op Diagnosis: Right Distal Femur Malunion Status Post Right Intramedullary Nailing Periprosthetic Femur Fracture Post-Op Diagnosis: Right Distal Femur Malunion Status Post Right Total Intramedullary Nailing Periprosthetic Femur Fracture I identified the patient and participated in the time-out.: Yes Procedure Operation Date: 07/19/21 10:40 Actual Procedures p Right Total Knee Revision(Right) to a distal femoral replacement with hinged knee replacement Right femur IM yusuf/nail removal- Peter Lemon MD Surgeon Peter Lemon MD Game Farm Helper David Krishna PA-C Estimated Blood Loss 300 Findings Consistent with Post-Op Diagnosis Operative findings revealed a malunion of the distal femur. The IM yusuf had migrated distally. The fracture itself appeared healed but in a displaced position. The proximal interlocking screw was broken. Specimens None Anesthesia Type General Complications none Disposition Accompanied Patient To Recovery: No Indications Patient is a 56-year-old morbidly obese female who is about a year and a half out from her right knee replacement. This was complicated by a fall 1 month postoperatively and she had a very severe comminuted displaced periprosthetic femur fracture. At this was treated with retrograde IM nailing. It appeared the fracture was healing but it was settling and the yusuf was migrating. She continued to have persistent pain and disability and inability to ambulate due to pain and dysfunction. We treated conservatively for quite some time. We got a CT scan which suggested some partial healing but not complete healing. Was very difficult to determine whether the bone was healed or not. She continued to have disabling pain. We elected proceed with surgical intervention. Description of Procedure Operative implants consisted of: 1. Biomet right OSS 7 cm distal femoral component with a 7 cm diaphyseal segment and a 12 x 850 mm bone stem 2. 71 mm tibial tray with a 10 x 160 mm stem. 3. 12 mm tibial bearing. The patient was taken the operating, identified, placed on the operating table supine position protectors were properly padded IV robotics tried by anesthesia team. A general anesthetic was implemented. We were unable to use a tourniquet due to the extensive nature of the surgery. The right leg was then prepped and draped in usual sterile fashion. Attention was first drawn toward taking the did the proximal interlocking screw out as this was the necessity to do the surgery. An incision was made and anterior thigh over the interlocking screw site. Type blunt dissection was carried through subcutaneous tissue down to the bone. She had a very large thick soft tissue envelope. I was able to identify the screw and backed it out but it found that the screw was broken. This was not seen on preoperative films. Therefore I had to get x-ray into a determine whether I could perform the operation as the remaining screw was in the IM canal which was necessary to remove the knot yusuf along with placement of the femoral component. I did use a small screwdriver to advance through the hole and pushed through the remaining portion of the screw out the back of the femur. X-rays brought in and this was verified. Therefore I could proceed with the operation. We irrigated this wound intact until the end of the case. A anterior approach of the right knee was then performed using the previous incision extending it proximally. Sharp dissection was got through subcutaneous this down the extensor mechanism. A medial parapatellar arthrotomy incision was made. Some subperiosteal dissection was carried medially. I then dissected directly down the femur. I skeletonized the proximal femur up to the fracture site. I then removed the set screw at the end of the IM nail. I then removed the helical blade a wall along with the distal interlocking screw. I then remove the IM nail without incident. I then used a saw to cut the femur just above the fracture site. I then skeletonized the remainder the distal femur removed it completely. I then remove the tibial tray. We took out the proximal left screw and then with the use of a small saw and the stacked osteotome technique I was able to remove the tibial tray. I then used the osteotome to remove some the cement and remove the keel along with the IM yusuf. This did take some time and we did very carefully did this. Once this was complete we proceeded with repairing the bones for implantation. I removed all the cement from the proximal tibia. I then reamed with the IM reamer and then cut the proximal tibia removing about 2 mm of bone from the medial side. We then prepared the proximal femur for a size 71 longstem. We left this in place and attention was then drawn the femur. Femur was reamed to begin the size 10 and progressing up to a size 14. We then measured the removed femur which was approximately 14 to 15 cm. I assembled a femoral component which was 14 cm long. Do we elect to place an 12mm diaphyseal segment/bowed stem. This is assembled on the back table with a 7mm diaphyseal segment and a 7 mm distal femur. We placed this and it fit nicely. I then assembled the implant in the standard 12 mm insert fit appropriately. Her leg lengths appeared equal. There was only about 5 mm maximal shock in extension. We elect to place these implants. All trial implants were removed. All wounds were irrigated extensively. I irrigated the canals of both and placement restrictors down by both canals. A double batch of Palacos G cement was mixed with additional gram of vancomycin. This is injected in the tibia and the tibial tray was placed. We allow this to completely set before proceeding to the femur. The femur was irrigated and dried and clean. A double batch Palacos G cement was mixed with additional gram of vancomycin. The canal was injected and the femoral component was placed. We held this until the cement hardened. A final check was performed and the 12 insert fit appropriately. The permanent 12 insert was placed. The patella tracked very nicely. Leg lengths seemed appr opriate. Soft tissue tension seemed appropriate. Attention drawn toward closing. The wound was irrigated scope soft pulsatile lavage solution. We did inject locally with 100 cc of combination of 50 cc half percent Marcaine with epinephrine, 20 cc of Exparel, 30 cc normal saline. I did place 1 g of vancomycin powder in the wound. The extensor mechanism closed with #1 PDS suture in running fashion. Subcutaneous tissue was then closed with 2 layers with a deep layer 0 Vicryl in the subcutaneous tissue with 2-0 Dexon suture in a buried interrupted fashion. Skin was closed with skin vanessa. At the leg was then cleaned and dried a sterile dressing was Xeroform, 4 fours, sterile ABD pad, sterile cast padding and Felix bandage were applied. The face then brought out of general anesthesia and transferred to the recovery room in stable condition. Patient tolerated the procedure well and there were no complications. David Krishna, my physician patient support assistant, was present for the entire procedure. His assistance was required for proper patient positioning, prepping and draping, surgical exposure, perform the technical details the operation, placement the implants, closure of the wound, and placement of sterile bandage. I attest to the content of the Intraoperative Record and any orders documented therein. Any exceptions are noted below.
[2021-07-19] MEDS: Scopolamine CHECK PATCH PLACEMENT SCH ×2 (20:37→23:34)
[2021-07-19] MEDS: SODIUM CHLORIDE 0.9% 1000ML 1,000 ML IV SCH (20:38)
[2021-07-19] MEDS: ASCORBIC ACID 500 MG TAB PO SCH (20:39)
[2021-07-19] MEDS: ceFAZolin 2000MG 2,000 MG/15 ML SYR IV SCH (20:40)
[2021-07-19] MEDS: DOCUSATE SODIUM 100 MG CAP PO SCH (20:43)
[2021-07-19] MEDS: SENNA 8.6 MG TAB PO SCH (20:43)
[2021-07-19] MEDS: TAPENTADOL HCL ER 50 MG TABCR PO SCH (20:44)
[2021-07-19] MEDS: SULFAMETHOXAZOLE/TRIMETHOPRIM DS 800/160MG TAB PO SCH (20:44)
[2021-07-19] MEDS: PREGABALIN 150 MG CAP PO SCH (20:44)
[2021-07-19] MEDS: CALCIUM 600MG + VIT D 400 IU TAB PO SCH (20:45)
[2021-07-19] MEDS: ASPIRIN 81 MG ECTAB PO SCH (20:45)
[2021-07-19] MEDS: buPROPion HCl 100 MG TABLET PO SCH (20:45)
[2021-07-19] MEDS: traZODone HCL 100 MG TAB PO SCH (20:46)
[2021-07-19] MEDS ORDERED: TRANEXAMIC ACID / 0.7% NACL 1,000 MG/100 ML BAG IV SCH (22:30)
[2021-07-19] MEDS: ACETAMINOPHEN 500 MG TAB PO SCH (23:07)
[2021-07-19] MEDS: KETOROLAC 30 MG/ML VIAL IV SCH (23:12)
[2021-07-20] MEDS: ceFAZolin 2000MG 2,000 MG/15 ML SYR IV SCH (02:48)
[2021-07-20] MEDS: HYDROmorphone HCL 2 MG TAB PO PRN ×3 (02:48→17:54)
[2021-07-20] MEDS: SODIUM CHLORIDE 0.9% 1000ML 1,000 ML IV SCH (05:35)
[2021-07-20] MEDS: ACETAMINOPHEN 500 MG TAB PO SCH ×3 (05:37→21:39)
[2021-07-20] MEDS: LEVOTHYROXINE SODIUM 175 MCG TABLET PO SCH (05:37)
[2021-07-20] MEDS: KETOROLAC 30 MG/ML VIAL IV SCH ×4 (05:37→23:32)
[2021-07-20 06:12] LABS: Hematocrit (blood only) 27.4 % (37-47); Mean Corpuscular Hemoglobin 31.6 pg (25-34); Mean Corpuscular Hgb Conc 32.8 g/dL (32-36); Mean Corpuscular Volume 96.1 fL (80-100); Mean Platelet Volume 9.1 fL (7.4-10.4); Platelet Count 179 K/uL (130-400); RDW Coefficient of Variation 14.5 % (11.5-14.5); RDW Standard Deviation 51.1 fL (36.4-46.3); Red Blood Count 2.85 M/uL (4.2-5.4)
[2021-07-20 06:34] LABS: BUN Creatinine Ratio 19.5 (10-20); Calcium 7.5 mg/dl (8.5-10.1); Creatinine Clr Calc Pharmacy 123.1 ml/min; Est GFR (African American) 92.1 ml/min; Est GFR (Non-African American) 79.4 ml/min; Potassium 4.3 mmol/L (3.5-5.1)
[2021-07-20] MEDS ORDERED: COUGH DROP (SUGAR FREE) LOZ 24 LOZ/1 BOX BUCCAL ONE (07:59)
[2021-07-20] MEDS ORDERED: dexAMETHasone 10 MG in SYRINGE 0 ML IV SCH (08:00)
[2021-07-20] MEDS: PREGABALIN 150 MG CAP PO SCH ×2 (08:01→21:35)
[2021-07-20] MEDS: TAPENTADOL HCL ER 50 MG TABCR PO SCH ×2 (08:01→21:35)
[2021-07-20] MEDS: POTASSIUM CHLORIDE CRTAB 20 MEQ TABCR PO SCH (08:01)
[2021-07-20] MEDS: Scopolamine CHECK PATCH PLACEMENT SCH ×2 (08:02→15:00)
[2021-07-20] MEDS: CALCIUM 600MG + VIT D 400 IU TAB PO SCH ×2 (08:02→21:36)
[2021-07-20] MEDS: DULoxetine HCL 60 MG CAP PO SCH (08:02)
[2021-07-20] MEDS: ASPIRIN 81 MG ECTAB PO SCH ×2 (08:02→21:35)
[2021-07-20] MEDS: ASCORBIC ACID 500 MG TAB PO SCH ×2 (08:02→17:54)
[2021-07-20] MEDS: ADVANCED PROBIOTIC 1250 MG CAPSULE PO SCH (08:02)
[2021-07-20] MEDS: PANTOprazole 40 MG TAB PO SCH (08:03)
[2021-07-20] MEDS: buPROPion HCl 100 MG TABLET PO SCH ×2 (08:03→21:35)
[2021-07-20] MEDS: DOCUSATE SODIUM/SENNA 50/8.6MG TAB PO SCH (08:03)
[2021-07-20] MEDS: MULTIVITAMIN TAB PO SCH (08:03)
[2021-07-20] MEDS: FERROUS SULFATE 325 MG TAB PO SCH (08:03)
[2021-07-20] MEDS: SULFAMETHOXAZOLE/TRIMETHOPRIM DS 800/160MG TAB PO SCH ×2 (08:03→22:09)
[2021-07-20] MEDS: DOCUSATE SODIUM 100 MG CAP PO SCH ×2 (08:03→21:35)
[2021-07-20] MEDS: ZINC SULFATE 220 MG CAPSULE PO SCH (08:04)
[2021-07-20] MEDS: FUROSEMIDE 40 MG TAB PO SCH (08:04)
--- NOTE | 2021-07-20 08:24 | Progress Notes ---
DATE OF SERVICE: 07/20/2021 SUBJECTIVE: A 56-year-old white female postoperative day 1 from right femur hardware removal, revisi on total knee replacement with a hinged knee and distal femoral replacement. She is doing pretty wel l this morning. No chest pain or shortness of breath. Not feeling dizzy or lightheaded. Pain has b een reasonably controlled overnight. OBJECTIVE: VITAL SIGNS: Temperature 36.6. Vital signs are stable. PHYSICAL EXAMINATION: GENERAL: Shows a pleasant middle-aged female. She is sitting up in bed and looks comfortable. LUNGS: Clear to auscultation. HEART: Regular rate and rhythm. ABDOMEN: Soft, nontender, nondistended. EXTREMITIES: Grossly neurovascularly intact except as follows: Examination of the right leg reveals the leg to be well aligned. She can dorsiflex and plantarflex her foot appropriately. She is neuro logically intact. LABORATORY DATA: Hemoglobin 9.0. Hematocrit 27.4. Electrolytes are stable. ASSESSMENT: A 56-year-old white female postoperative day 1 from right femur hardware removal and con version of a total knee replacement to a hinged knee and distal femoral replacement. She is doing qu ite well considering the nature of the surgery. Her pain is reasonably well controlled. Her blood p ressure and laboratories look stable. PLAN: 1. DVT prophylaxis includes thigh-high TEDs, SCDs, and aspirin twice a day. 2. PT/OT. She can fully weightbear on this right leg as tolerated. Shabnam will use the knee immobil izer only as needed if she needs quad support, but I do not want any buckling. 3. Pain control, doing okay with current pain regimen. 4. Disposition: We are going to keep her in the hospital today and do some therapy. We will hopefu lly get her home maybe tomorrow with or without home health. She has been through this enough, she m ay not need home health. We are going to continue on the Bactrim prophylactically. Job ID: [id number]
[2021-07-20] MEDS ORDERED: NON-FORMULARY MEDICATION (Multivitamin Tablet) PO SCH (09:00)
[2021-07-20] MEDS: SENNA 8.6 MG TAB PO SCH (21:35)
[2021-07-20] MEDS: traZODone HCL 100 MG TAB PO SCH (21:36)
[2021-07-21] MEDS: Scopolamine CHECK PATCH PLACEMENT SCH ×2 (00:06→09:00)
[2021-07-21] MEDS: KETOROLAC 30 MG/ML VIAL IV SCH ×2 (05:56→11:19)
[2021-07-21] MEDS: ACETAMINOPHEN 500 MG TAB PO SCH ×2 (05:57→14:24)
[2021-07-21] MEDS: LEVOTHYROXINE SODIUM 175 MCG TABLET PO SCH (05:57)
--- NOTE | 2021-07-21 07:51 | Progress Notes ---
DATE OF SERVICE: 07/21/2021. SUBJECTIVE: A 56-year-old female now postop day 2 from a right revision total knee replacement and h ardware removal and a hinged knee replacement. She is doing pretty well. Her therapy went reasonabl y well. Pain is controlled. No chest pain or shortness of breath. Not feeling dizzy or lightheaded . OBJECTIVE: VITAL SIGNS: Temperature 36.6. Vital signs are stable. PHYSICAL EXAMINATION: GENERAL: Shows a pleasant middle-aged female. She is sitting up in bed and looks pretty comfortable this morning. EXTREMITIES: Examination of the right leg reveals the incision to be clean, dry and intact. A large soft tissue envelope. She can do a straight leg raise. She can dorsiflex and plantarflex her foot appropriately. She is neurologically intact. ASSESSMENT: A 56-year-old female now postoperative day 2 from a right knee revision with hardware re moval and replacement with a distal femoral replacement and a hinged knee replacement. She is doing pretty well. Pain is controlled. She is neurologically intact. PLAN: 1. DVT prophylaxis includes thigh-high TEDs, SCDs, and aspirin twice a day. 2. PT/OT. She can weight bear as tolerated in the right leg. Use a knee immobilizer for quad suppo rt if needed. 3. Pain control, doing okay with current pain regimen. 4. Disposition: Plan to discharge to home likely later today if therapy goes okay. Job ID: [id number]
[2021-07-21 07:54] VITALS: BP 133/82; PULSE 68; TEMP 98.2
[2021-07-21 07:58] LABS: Basophils # (auto) 0.03 K/uL (0-0.2); Basophils % (auto) 0.4 %; Eosinophils % (auto) 2.7 %; Hematocrit (blood only) 25.3 % (37-47); Hemoglobin 8.1 g/dL (12.0-16.0); Immature Granulocytes # (auto) 0.01 K/uL (0.00-0.02); Immature Granulocytes % (auto) 0.1 %; Lymphocytes # (auto) 1.77 K/uL (1.2-3.4); Lymphocytes % (auto) 24.2 %; Mean Corpuscular Hemoglobin 30.8 pg (25-34); Mean Corpuscular Volume 96.2 fL (80-100); Mean Platelet Volume 8.9 fL (7.4-10.4); Monocytes # (auto) 0.76 K/uL (0.11-0.59); Monocytes % (auto) 10.4 %; Neutrophils # (auto) 4.55 K/uL (1.4-6.5); Neutrophils % (auto) 62.2 %; Platelet Count 177 K/uL (130-400); RDW Coefficient of Variation 15.1 % (11.5-14.5); Red Blood Count 2.63 M/uL (4.2-5.4); White Blood Count 7.32 K/uL (4.8-10.8)
[2021-07-21] MEDS: PREGABALIN 150 MG CAP PO SCH (08:57)
[2021-07-21] MEDS: ZINC SULFATE 220 MG CAPSULE PO SCH (08:57)
[2021-07-21] MEDS: TAPENTADOL HCL ER 50 MG TABCR PO SCH (08:57)
[2021-07-21] MEDS: SULFAMETHOXAZOLE/TRIMETHOPRIM DS 800/160MG TAB PO SCH (08:58)
[2021-07-21] MEDS: POTASSIUM CHLORIDE CRTAB 20 MEQ TABCR PO SCH (08:58)
[2021-07-21] MEDS: ADVANCED PROBIOTIC 1250 MG CAPSULE PO SCH (08:58)
[2021-07-21] MEDS: MULTIVITAMIN TAB PO SCH (08:58)
[2021-07-21] MEDS: FUROSEMIDE 40 MG TAB PO SCH (08:58)
[2021-07-21] MEDS: PANTOprazole 40 MG TAB PO SCH (08:58)
[2021-07-21] MEDS: buPROPion HCl 100 MG TABLET PO SCH (08:59)
[2021-07-21] MEDS: CALCIUM 600MG + VIT D 400 IU TAB PO SCH (08:59)
[2021-07-21] MEDS: DULoxetine HCL 60 MG CAP PO SCH (08:59)
[2021-07-21] MEDS: ASCORBIC ACID 500 MG TAB PO SCH (08:59)
[2021-07-21] MEDS: ASPIRIN 81 MG ECTAB PO SCH (08:59)
[2021-07-21] MEDS: DOCUSATE SODIUM/SENNA 50/8.6MG TAB PO SCH (08:59)
[2021-07-21] MEDS: FERROUS SULFATE 325 MG TAB PO SCH (08:59)
[2021-07-21] MEDS: DOCUSATE SODIUM 100 MG CAP PO SCH (09:00)
[2021-07-21] MEDS: HYDROmorphone HCL 2 MG TAB PO PRN (11:24)
[2021-07-21 14:39] VITALS: O2SAT 99
[2021-07-24] MEDS ORDERED: ERGOCALCIFEROL 50,000 UNITS 1250 MCG CAP PO SCH (09:00)
== END 2021-07-21 15:51 | disposition home or self-care (01) ==
LOC: 3E 08:39 → ASU 08:39